=== PATIENT | female | born 1975 | race Caucasian/White ===

== ENCOUNTER 2018-05-02 08:08 | Day surgery (SDC) | payer MEDICAID, SELFPAY ==
--- NOTE | 2018-05-02 07:25 | W.PM.DSUDISC ---
Discharge Plan Disposition Patient Disposition: HOME Condition: Good Discharge Details Reason For Visit: Left Dequervain's Release Attending Provider: Karl Aguilera Primary Care Provider: Denise Diamond Home Meds and New Rx's Prescriptions: New hydrocodone-acetaminophen 5-325 mg tablet 1 tab PO Q4H PRN (Reason: pain) Qty: 8 RF: 0 ibuprofen 600 mg tablet 600 mg PO TID PRNQty: 90 RF: 3 Continue lisinopril 10 MG tablet 10 mg PO DAILY RF: 0 fluoxetine [Prozac] 10 MG capsule 10 mg PO DAILY RF: 0 varenicline [Chantix Continuing Month Box] 1 MG tablet 1 mg PO BID RF: 0 metformin [Glucophage] 1,000 MG tablet 1,000 mg PO BID RF: 0 acetaminophen [Acetaminophen Extra Strength] 500 MG tablet 1,000 mg PO TID Qty: 90 RF: 0 Discontinued ibuprofen 200 MG tablet 600 mg PO TID Qty: 90 RF: 0 Discharge Instructions Additional Instructions: Activity: You should keep the hand elevated as much as possible for the first few days. You may use the other fingers as tolerated but avoid trying to do too much too soon. You may perform light activities with the splint in place. Dressing/Cast: Your splint should stay in place at all times. Do NOT get it wet. You may loosen the ELIZABETH wrap if you feel it is too tight and then rewrap more loosely. Medications: - You should take Tylenol and Ibuprofen for baseline pain control. - You have Hydrocodone for breakthrough pain. - You may apply ice over the thumb. Follow-up: 7-10 days Equipment/Supplies: Splint Activity:: Elevate Remove Dressings/Wound Care:: Do Not Remove Shower/Bathe:: Cover Diet:: As Tolerated Discharge Orders Discharge Orders: Discharge Order (Routine); Ordered 05/02/18 Ordered By: Karl Aguilera DS: Diagnosis Discharge Diagnosis (1) De Quervain's tenosynovitis, left: Status: Acute
[2018-05-02 08:36] VITALS: BP 109/78; PULSE 84; RESP 18; TEMP 36.8; O2SAT 100
[2018-05-02] MEDS: Lactated Ringers 1,000 ML 80 ML IV (09:17)
--- NOTE | 2018-05-02 10:43 | W.PM.OP ---
Date of service: 05/02/18 Time of Service: 10:44 Operative Note DATE OF PROCEDURE: 05/02/18 PRE-OP DIAGNOSIS: Left Dequervain's Tenosynovitis POST-OP DIAGNOSIS: same PROCEDURE: Left First Extensor Compartment Release SURGEON: Karl Aguilera ACCOUNT MAINTENANCE REPRESENTATIVE: Darlin Gutierrez ANESTHESIA: MAC ESTIMATED BLOOD LOSS: 0 PATHOLOGY: none sent TOURNIQUET TIME: 9 COMPLICATIONS: None Patient was transported to: same day Patient's condition: stable Indications: Stephanie is a 43-year-old female who has had symptoms of Dequervain's tenosynovitis. Nonoperative treatment options had been trialed. Given their failure, I offered operative intervention. I reviewed the technical details of a first extensor compartment release. I reviewed the risk of the procedure to include bleeding, infection, pain, stiffness, tendon instability, damage to the superficial radial nerve, and complete release. Despite these risks, the patient elected to proceed. Findings: There was a tightened first excessive compartment. No subcompartments were seen encasing the EPB tendon. There were 2 main slips of APL tendon. Procedure Description: Stephanie was greeted in the preoperative holding area. Name and surgical site were confirmed. The history and physical was completed. The consent was reviewed the patient and signed. Stephanie was taken back to the operating room. The patient was placed and monitored anesthesia care. The left was then prepped with ChloraPrep and draped in a standard fashion after a nonsterile tourniquet was placed high up onto the arm. Prophylactic antibiotics in the form of cefazolin were administered. A timeout was performed for safe surgery. The surgical site was drawn on the skin. The planned surgical field was anesthetized with 0.25% bupivacaine with epinephrine. The limb was exsanguinated and the tourniquet was inflated where it stayed for 9 minutes. A 2 cm incision was made longitudinally over the radial styloid. The skin was incised only. The deep tissue subtenons fat was dissected with a tenotomy scissors trying to protect bridge of the superficial radial nerve. Any branches that were identified were retracted out of the way. The first compartment extensor tendons were then identified. The distal aspect of the first compartment was noted and were released. This release was performed more on the dorsal side to prevent tendon subluxation. The entirety of the first extensor compartment was then released. The slips of the abductor pollicis longus tendon were inspected. They removed to confirm the appropriate motion of the thumb. The extensor pollicis brevis tendon was then identified. No subcompartments were identified. It was fully released. Traction on the tendon was also used to confirm appropriate extension of the thumb confirming the release of the appropriate tendon. The dorsal radial surface of the radius was once again inspected to make sure there is no other sub-compartments or other restrictions to tendon motion. The wound was then thoroughly irrigated. The deep tissue was closed with a 3-0 Vicryl. The skin was closed with a running subjective 4-0 Monocryl. Skin glue was applied. The tourniquet is released without significant bleeding. The hand was dressed with 4 x 4's, web roll, thumb spica splint. I did occasional counts are correct. Patient was transferred back to same day surgery area in stable condition.
[2018-05-02 11:00] VITALS: BP 92/59; PULSE 67; RESP 16; TEMP 37; O2SAT 99
== END 2018-05-02 12:05 | disposition home or self-care (01) ==
LOC: SUR 08:09
PROVIDERS: PCP Family Medicine; Visit Provider Student in an Organized Health Care Education/Training Program
PROC: (CPT 25000; principal; 2018-05-02 09:30)
DX: M65.4 Radial styloid tenosynovitis [de Quervain] (principal)
CPT/HCPCS: 25000; J0690; J1100; J1885; J2250; J2405; J3010

== ENCOUNTER 2018-05-20 09:36 | Outpatient (CLI) | payer MEDICAID, SELFPAY ==
[2018-05-20 10:54] LABS: HCT 40.5 % (36.0-46.0); HGB 13.5 g/dL (12.0-15.5); Mean Corp. HGB Concentration 33.3 g/dL (32.0-36.0); Mean Corpuscular Hemoglobin 28.7 pg (27.0-33.0); Mean Platelet Volume 10.8 fL (8.0-11.0); Platelet Count 261 x1000/uL (130-400); RBC 4.71 m/cumm (4.00-5.20); RBC Distribution Width 13.3 % (11.7-14.6); White Blood Cell Count 6.49 k/cumm (4.4-10.8)
[2018-05-20 11:41] LABS: ALT 23 U/L (12-78); AST 13 U/L (15-37); Albumin 3.6 g/dL (3.4-5.0); Alkaline Phosphatase 53 U/L (46-116); Anion Gap 7.5 mmol/L (3-11); BUN 15 mg/dL (7-18); Bilirubin, Total 0.5 mg/dL (0.2-1.0); CO2 29.5 mmol/L (21.0-32.0); CREATININE 0.65 mg/dL (0.55-1.02); Calcium 8.9 mg/dL (8.5-10.1); Chloride 103 mmol/L (98-107); Cholesterol 210 mg/dL (50-200); Glucose 139 mg/dL (70-100); HDL Cholesterol 40 mg/dL (40-60); LDL CHOLESTEROL 152 mg/dL (<100); Potassium 4.5 mmol/L (3.5-5.1); Sodium 140 mmol/L (136-145); Total Protein 6.6 g/dL (6.4-8.2); Triglyceride 90 mg/dL (30-150)
[2018-05-22 06:18] LABS: Hemoglobin A1C 6.8 % (4.5-6.2)
== END 2018-05-20 09:56 ==
PROVIDERS: PCP Family Medicine; Visit Provider Family Medicine
DX: Z13.1 Encounter for screening for diabetes mellitus (principal); Z13.220 Encounter for screening for lipoid disorders; Z13.228 Encounter for screening for other metabolic disorders; Z13.0 Encounter for screening for diseases of the blood and blood-forming organs and certain disorders involving the immune mechanism; Z00.00 Encounter for general adult medical examination without abnormal findings
CPT/HCPCS: 36415; 80053; 80061; 83721; 85027; 83036

== ENCOUNTER 2018-09-18 14:01 | Outpatient (CLI) | payer MEDICAID, SELFPAY ==
--- NOTE | 2018-09-18 13:57 | DI.RAD_ITS ---
SYMPTOM/DIAGNOSIS: PAIN RIGHT KNEE: Three views were obtained. There is prominent hypertrophic spurring of the patella, both inferior and superior poles. The findings are unchanged from films of 08/09/16. Note is also made of a lateral patellar spur. There is slight narrowing of the lateral patellofemoral cartilaginous joint space. CONCLUSION: DJD predominantly involving the patellofemoral joint.
== END 2018-09-18 14:21 ==
PROVIDERS: PCP Family Medicine; Visit Provider Physician Assistant Surgical
DX: M25.561 Pain in right knee (principal); M17.11 Unilateral primary osteoarthritis, right knee
CPT/HCPCS: 73562

== ENCOUNTER 2019-05-15 00:57 | Outpatient (CLI) | payer MEDICAID, SELFPAY ==
--- NOTE | 2019-05-15 11:32 | DI.MRI_ITS ---
EXAM: MR LOWER JOINT RT WO CLINICAL HISTORY: KNEE PAIN M25.569. TECHNIQUE: Multiplanar multisequence MRI was performed. COMPARISON: XR knee RT 3V AP,lat,ishan from 09/18/2018 FINDINGS: There is a small joint effusion. There are degenerative changes at the lateral patellofemoral joint with thinning of the cartilage extending down to involving underlying bone. There is a prominent lat eral spur. There is a focal defect of the cartilage overlying the lateral femoral condyle extending down to bone. The cruciate and collateral ligaments and extensor mechanism appear intact. There are mild degenerat vicenta changes of the medial meniscus. 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 Focal defect of the cartilage of the lat eral femoral condyle.
== END 2019-05-15 01:17 ==
PROVIDERS: PCP Family Medicine; Visit Provider Student in an Organized Health Care Education/Training Program
DX: M25.561 Pain in right knee (principal); M22.41 Chondromalacia patellae, right knee; M94.8X6 Other specified disorders of cartilage, lower leg; M17.11 Unilateral primary osteoarthritis, right knee
CPT/HCPCS: 73721

== ENCOUNTER 2019-05-15 10:30 | Outpatient (REF) | payer MEDICAID, SELFPAY ==
[2019-05-15 18:43] LABS: ALT 24 U/L (14-59); AST 13 U/L (15-37); Albumin 3.4 g/dL (3.4-5.0); Alkaline Phosphatase 51 U/L (46-116); Anion Gap 11.4 mmol/L (3-11); BUN 11 mg/dL (7-18); Bilirubin, Total 0.5 mg/dL (0.2-1.0); CO2 25.6 mmol/L (21.0-32.0); CREATININE 0.65 mg/dL (0.55-1.02); Calcium 8.9 mg/dL (8.5-10.1); Calculated LDL 123 mg/dL; Chloride 103 mmol/L (98-107); Cholesterol 184 mg/dL (<200); Glucose 173 mg/dL (74-106); HDL Cholesterol 41 mg/dL (40-60); Potassium 3.8 mmol/L (3.5-5.1); Sodium 140 mmol/L (136-145); Total Protein 6.4 g/dL (6.4-8.2); Triglyceride 101 mg/dL (<150)
== END 2019-05-15 10:50 ==
LOC: NCHCN 10:30
PROVIDERS: PCP Family Medicine; Visit Provider Nurse Practitioner
DX: E78.5 Hyperlipidemia, unspecified (principal); E11.9 Type 2 diabetes mellitus without complications; I10 Essential (primary) hypertension
CPT/HCPCS: 80053; 80061

== ENCOUNTER 2019-07-30 16:16 | Outpatient (REF) | payer MEDICAID, SELFPAY ==
[2019-07-30 16:47] LABS: Source R KNEE
[2019-07-30 16:48] LABS: Clarity CLOUDY; Nucleated Cells 822 /MM3 (0-0)
[2019-07-30 17:35] LABS: Mononuclear Cells 95 % (0-0); Polynuclear Cells 5 % (0-0)
== END 2019-07-30 16:36 ==
LOC: LBN 16:16
PROVIDERS: PCP Family Medicine; Visit Provider Student in an Organized Health Care Education/Training Program
DX: M25.461 Effusion, right knee (principal)
CPT/HCPCS: 87070; 87205; 89051; 89060

== ENCOUNTER 2019-11-26 10:49 | Emergency (ER) | payer MEDICAID, SELFPAY ==
[2019-11-26 10:55] VITALS: BP 114/83; PULSE 87; RESP 16; TEMP 37; O2SAT 97
[2019-11-26] MEDS: Ibuprofen 600 MG TAB PO (11:20)
--- NOTE | 2019-11-26 11:22 | ED.GENADUL_ITS ---
Discharge Plan Disposition Patient Disposition: HOME Condition: Stable Discharge Details Chief Complaint: Orthopedic Clinical Impression: Contusion of knee, right Primary Care Provider: Denise Diamond ED Provider: Sarkis Jim Home Meds and New Rx's Prescriptions: Continued lisinopril 10 MG tablet 10 mg PO DAILY RF: 0 metformin [Glucophage] 1,000 MG tablet 1,000 mg PO BID RF: 0 ibuprofen 600 mg tablet 600 mg PO TID PRNQty: 90 RF: 3 acetaminophen [Acetaminophen Extra Strength] 500 MG tablet 1,000 mg PO TID Qty: 90 RF: 0 Discharge Instructions Instructions: Contusion in Adults (ED) Additional Instructions: if pain continues in a week follow up with your primary care provider return to the emergency department for severe worsening pain or swelling of the leg Medical Decision Making 44 yo female tripped and landed from standing on her right knee anteriorly, no loc. HAs mild anterior swelling, full rom with some pain, normal distal senastion and pulses. Suspsect contusion but will xray to eval for fx. No findings to suggest dislocation with popliteal injury xray negative on my read, will place in hinged knee brace and have her f/u with ortho in one week if pain continues Differential Diagnosis Differential Diagnosis: sprain, contusion, fracture Imaging Data Radiologic Study: Attestation: I personally reviewed and interpreted this imaging study as follows: Imaging: X-Ray My impression: no acute findings HPI General Mode of arrival: ambulatory . Date/Time Provider Initiated Documentation: 11/26/19 11:07 . Limitations to Documentation: no limitations . Information obtained by: patient . History of Present Illness 44 year old F presents to the emergency department with the chief complaint of right knee pain, described as moderate, Quality is described as aching, Patient started experiencing this day(s) (1) and it has been constant. No relieving factors improve symptom(s), No exacerbating factors reported . Patient did receive the following treatments prior to arrival, none Related Data Home Medications Medication Instructions Recorded Confirmed lisinopril 10 mg PO DAILY tab-cap 08/09/16 07/30/19 metformin [Glucophage] 1,000 mg PO BID 12/15/16 07/30/19 acetaminophen [Acetaminophen Extra 1,000 mg PO TID #90 tab 05/02/18 07/30/19 Strength] ibuprofen 600 mg PO TID PRN #90 tab 05/02/18 07/30/19 Previous Rx's Medication Instructions Recorded acetaminophen [Acetaminophen Extra 1,000 mg PO TID #90 tab 05/02/18 Strength] ibuprofen 600 mg PO TID PRN #90 tab 05/02/18 Allergies Allergy/AdvReac Type Severity Reaction Status Date / Time No Known Allergies Allergy Unverified 07/30/19 14:48 General Stated Complaint: Orthopedic SPENCER: 4 Review of Systems All systems reviewed & are unremarkable except as noted in HPI and below Constitutional Constitutional: Denies chills, Denies fever(s) and Denies weakness Cardiovascular Cardiovascular: Denies chest pain and Denies dyspnea Respiratory Respiratory: Denies cough and Denies dyspnea Gastrointestinal Gastrointestinal: Denies abdominal pain, Denies nausea and Denies vomiting Neurologic Neurologic: Denies weakness Psychiatric Psychiatric: Denies depression [facility] Medical History (Updated 11/26/19 @ 11:44 by Sarkis Jim MD) Diabetes mellitus (Chronic) Hypertension (Chronic) Social History Smoking/Tobacco Use Status: Current every day Drug use: Never Current gender identity: female Do you feel safe at home: Yes Do you feel safe in your relationship?: Yes Exam Const General: no acute distress Orientation: alert HENMT Head: normal to inspection Ears: external ears normal General nose exam: external nose normal Mouth: moist mucous membranes Eyes General: appearance normal, both eyes and all related structures Neck Neck: normal visual inspection Resp Effort & Inspection: normal respiratory effort and able to speak in complete sentences Cardio Rate: regular rate Skin General skin exam: no rashes or lesions noted Neuro General: patient alert and patient oriented x3 Extrem General: full ROM and capillary refill normal Psych Mental Status: mental status grossly normal Course Vital Signs Vital signs: Vital Signs Temperature 37 C 11/26/19 10:55 Pulse 87 11/26/19 10:55 Respiratory Rate 16 11/26/19 10:55 Blood Pressure 114/83 11/26/19 10:55 Pulse Oximetry 97 11/26/19 10:55 Temperature 37 C 11/26/19 10:55 Temperature Source Skin 11/26/19 10:55 Pulse 87 11/26/19 10:55 Respiratory Rate 16 11/26/19 10:55 Respiratory Effort Non-Labored 11/26/19 11:20 Blood Pressure 114/83 11/26/19 10:55 Pulse Oximetry 97 11/26/19 10:55 Oxygen Delivery Method Room Air 11/26/19 10:55 Oxygen Flow Rate 0 11/26/19 10:55 Pain Level 9 11/26/19 11:20
--- NOTE | 2019-11-26 11:40 | DI.RAD_ITS ---
EXAM: XR KNEE RT 3V AP,LAT,ANGELA CLINICAL HISTORY: knee pain s/p fall. TECHNIQUE: 2D digital imaging was performed. COMPARISON: CR XR knee RT 3V AP,lat,angela from 09/18/2018 FINDINGS: There is mild periarticular spurring of the posterior patella. The articular surfaces are otherwise well maintained. There are enthesophytes at the superior and inferior patella. The bones are intact and normally mineralized. There is a small joint effusion. IMPRESSION: Mild degenerative changes and a small joint effusion. DATA REPOSITORY: RADIATION DOSE DELIVERED:
--- NOTE | 2019-11-27 10:17 | NUR.NOTE ---
Nursing Note: Patient called requesting a work note for one more day. Dr. Billings did one in the patient chart, and it was faxed to [employer]. Fax [phone]. Patient is aware. Ashley Landis
== END 2019-11-26 11:50 | disposition home or self-care (01) ==
PROVIDERS: Emergency Provider Emergency Medicine; PCP Family Medicine
DX: S80.01XA Contusion of right knee, initial encounter (principal); W18.39XA Other fall on same level, initial encounter; E11.9 Type 2 diabetes mellitus without complications; Z79.84 Long term (current) use of oral hypoglycemic drugs; I10 Essential (primary) hypertension
CPT/HCPCS: 29505; 73562; 99283; L1810

== ENCOUNTER 2019-12-03 10:03 | Outpatient (REF) | payer MEDICAID, SELFPAY ==
--- NOTE | 2019-12-03 09:45 | PAPFT_PTH ---
PATIENT: Stephanie Lim LOC: [facility] U#:[id number] AGE/SX: 44/F ROOM: RE12/03/[address]: Denise Diamond : 1975 BED: DIS: 12/03/2019 SPEC #: [id number] RECD: 12/04/19 12:51 STATUS: NATHAN RERoe #: [id number] CHRISTINE: 12/03/19 09:[address]: Denise Diamond DEPT: [facility] Cytology RECD BY: Juana Carpio Tissues: 1 - CX/ENDOCX FOR PAP SMEARS Procedures: PAP THIN PREP/UVM Screening HPV DNA PROBE Comments: [id number] (CHLAMYDIA/GC)
[2019-12-05 13:25] LABS: Chlamydia Result Negative (Negative); GC Result Negative (Negative)
== END 2019-12-03 10:23 ==
LOC: NCHCN 10:03
PROVIDERS: PCP Family Medicine; Visit Provider Family Medicine
DX: Z11.3 Encounter for screening for infections with a predominantly sexual mode of transmission (principal); Z12.4 Encounter for screening for malignant neoplasm of cervix
CPT/HCPCS: 87491; 87591; 88142; 87624

== ENCOUNTER 2019-12-07 00:46 | Outpatient (CLI) | payer MEDICAID, SELFPAY ==
--- NOTE | 2019-12-07 07:00 | DI.MRI_ITS ---
EXAM: MR LOWER JOINT RT WO CLINICAL HISTORY: right knee effusion, internal derangment, M23.91, M25.461. TECHNIQUE: Multiplanar multisequence MRI was performed. COMPARISON: CR XR knee RT 3V AP,lat,angela from 09/18/2018 MR MR LOWER JOINT RT WO from 05/15/2019 CR XR KNEE RT 3V AP,LAT,ANGELA from 11/26/2019 FINDINGS: BONES: There is no fracture or contusion pattern. In the lateral patellar facet, there is marrow shanda a and subchondral cysts. There is absence of the overlying articular cartilage. There is also a lar ge spur laterally. Nonspecific marrow edema is seen in the proximal tibia. JOINTS: There is a cartilage defect in the lateral femoral condyle. Absence of the overlying cartila ge is seen in the lateral patellar facet. There is a moderate joint effusion. TENDONS: Extensor mechanism: Unremarkable. Medial retinaculum: Unremarkable. Lateral retinaculum: Unremarkable. Popliteus: Unremarkable. MUSCLES: Unremarkable. MENISCI: The medial meniscus is unremarkable. The lateral meniscus is unremarkable. SOFT TISSUES: Unremarkable. LIGAMENTS: Anterior Cruciate: Unremarkable. Posterior Cruciate: Unremarkable. Medial Collateral:Unremarkable. Lateral Collateral: Unremarkable. OTHER: IMPRESSION: 1. Chondromalacia again seen involving the lateral patella facet. 2. Degenerative changes seen at the patellofemoral joint. 3. Small cartilage defect overlying the lateral femoral condyle. 4. Moderate joint effusion. 5. No evidence of a meniscal or ligament tear. DATA REPOSITORY:
== END 2019-12-07 01:06 ==
PROVIDERS: PCP Family Medicine; Visit Provider Physician Assistant
DX: M25.561 Pain in right knee (principal); M25.461 Effusion, right knee; M22.41 Chondromalacia patellae, right knee; M17.11 Unilateral primary osteoarthritis, right knee
CPT/HCPCS: 73721

== ENCOUNTER 2020-02-08 11:10 | Outpatient (CLI) | payer MEDICAID, SELFPAY ==
--- NOTE | 2020-02-08 10:48 | DI.RAD_ITS ---
EXAM: XR STANDING ALIGNMENT CLINICAL HISTORY: preop planning for TKA. TECHNIQUE: 2D digital imaging was performed. COMPARISON: CR XR knee RT 3V AP,lat,angela from 09/18/2018 CR XR KNEE RT 3V AP,LAT,ANGELA from 11/26/2019 FINDINGS: The hips are unremarkable. The knees are well maintained on the AP views. The ankles are unremarkab le. The left lower extremity measures 96.2 cm. The right lower extremity measures 96 cm. IMPRESSION: DATA REPOSITORY: RADIATION DOSE DELIVERED:
== END 2020-02-08 11:30 ==
PROVIDERS: PCP Family Medicine; Referring Provider Family Medicine; Visit Provider Physician Assistant
DX: Z01.818 Encounter for other preprocedural examination (principal)
CPT/HCPCS: 77073

== ENCOUNTER 2020-02-15 02:39 | Outpatient (CLI) | payer MEDICAID, SELFPAY ==
[2020-02-15 10:25] LABS: HCT 40.7 % (36.0-46.0); HGB 13.3 g/dL (11.2-15.7); MCHC 32.7 % (32.0-36.0); MCV 88.9 fL (80-95); Platelet Count 229 10^3/uL (130-400); RBC 4.58 10^6/uL (3.93-5.22); RDW 13.2 % (11.7-14.6); RDW-SD 43.1 fL; WBC 6.92 10^3/uL (4.4-10.8)
[2020-02-15 11:06] LABS: BUN 12 mg/dL (7-18); CREATININE 0.68 mg/dL (0.55-1.02); Chloride 102 mmol/L (98-107); Glucose 151 mg/dL (74-106); Potassium 4.2 mmol/L (3.5-5.1); Sodium 136 mmol/L (136-145)
== END 2020-02-15 02:59 ==
PROVIDERS: PCP Family Medicine; Visit Provider Student in an Organized Health Care Education/Training Program
DX: M25.561 Pain in right knee (principal); M17.11 Unilateral primary osteoarthritis, right knee; I10 Essential (primary) hypertension; Z01.818 Encounter for other preprocedural examination; Z01.12 Encounter for hearing conservation and treatment
CPT/HCPCS: 36415; 80048; 85027

== ENCOUNTER 2020-02-15 02:39 | Outpatient (CLI) | payer MEDICAID, SELFPAY ==
[2020-02-16 18:13] LABS: COVID-19 RT-PCR Result NEGATIVE (Negative)
== END 2020-02-15 02:59 ==
PROVIDERS: PCP Family Medicine; Visit Provider Student in an Organized Health Care Education/Training Program
DX: M17.11 Unilateral primary osteoarthritis, right knee (principal)
CPT/HCPCS: U0003

== ENCOUNTER 2020-02-20 06:04 | Observation (INO) | payer MEDICAID, SELFPAY ==
[2020-02-20] VITALS (10 sets, daily range): BP systolic 101–118; BP diastolic 58–75; PULSE 62–76; RESP 16–22; TEMP 36.2–36.7; O2SAT 94–100
[2020-02-20] MEDS: Celecoxib 200 MG CAP 400 MG PO (06:31)
[2020-02-20] MEDS: Acetaminophen 500 MG TAB 1000 MG PO ×2 (06:31→13:09)
[2020-02-20] MEDS: Lactated Ringers 1,000 ML 80 ML IV (06:31)
[2020-02-20] MEDS: Gabapentin 300 MG CAP PO (06:31)
[2020-02-20] MEDS: ceFAZolin 2 GM/50 ML BAG IVPB (08:15)
[2020-02-20] MEDS: Ketorolac 30 MG/ML VIAL (09:29)
[2020-02-20] MEDS: Normal Saline 20 ML VIAL (09:29)
[2020-02-20] MEDS: Bupivacaine 0.25% Pres-Free 30 ML VIAL (09:29)
--- NOTE | 2020-02-20 10:13 | W.PM.OP ---
Date of service: 02/20/20 Time of Service: 10:13 Operative Note Operative Note DATE OF PROCEDURE: 02/20/20 PRE-OP DIAGNOSIS: Right Knee Osteoarthritis POST-OP DIAGNOSIS: same PROCEDURE: Right Total Knee Replacement with Intraoperative Navigation SURGEON: Karl Aguilera GRASSROOTS ORGANIZER: Darlin Gutierrez ANESTHESIA: regional and spinal ESTIMATED BLOOD LOSS: 150 PATHOLOGY: none sent TOURNIQUET TIME: 0 COMPLICATIONS: None Patient was transported to: PACU Patient's condition: stable Implants: 1. Depuy Attune Cementless Cruciate Retaining Femoral Component, Size 7 2. Depuy Attune Cementless Rotating Platform Tibial Component, Size 5 3. Depuy Attune 7x7mm CR/RP Poly 4. Depuy Attune Patellar Component, Size 38mm Indications: I have seen Stephanie in clinic for symptoms of RIGHT knee arthritis, confirmed with radiographic findings. Stephanie has exhausted nonoperative methods and was having significant limitations in daily function and desired better function and less pain. I discussed the technical details of a knee replacement. I explained the risks of the procedure to include, but not limited to, bleeding, infection, pain, stiffness, fracture, damage to nerves and vessels, damage to muscles and tendons, loosening, need for repeat procedure, blood clot and cardiopulmonary demise. Despite these risks, Stephanie elected to proceed. Findings: There was significant signs of arthritis throughout the knee with complete loss of cartilage from the patella and a large defect over the distal aspect of the medial femur. Procedure Description: Stephanie was greeted in the preoperative holding area where the correct side was identified and marked. The consent was reviewed with the patient and signed. The history and physical was updated. All questions were answered. Preoperative mediacations were administered: Acetaminophen 1000mg, Celebrex 400mg, and Gabapentin 300mg. An adductor canal block was then administered by the anesthesia team in the PACU. Stephanie was taken back to the operating room. A spinal anesthestic was then administered. The patient was placed into the supine position on the operating room table. A nonsterile tourniquet was placed high onto the leg. Posts were placed for positioning during the procedure. All bony prominences were well padded. Prophylactic antibiotics in the form of Cefazolin were administered. 1g of Tranxemic Acid was given intravenously within 30 minutes of incision. The right leg was then prepped with Chloraprep and draped in a standard fashion with impervious stockinette. A second prep with Chloraprep was performed prior to application of Iodine impregnated skin protection. A timeout to confirm correct identity, side and site, procedure, allergies, anesthesia, and medical concerns was performed. With the knee in some flexion, a midline incision was made overlying the knee. Full thickness skin flaps were raised once the extensor mechanism was encountered. These were raised medially and laterally. Any bleeding was controlled with electrocautery. Once the extensor mechanism was fully exposed, a medial parapatellar arthrotomy was performed in a flexed position. All bleeding from the arthrotomy and the geniculate arteries was coagulated. A medial subperiosteal peel was performed with electrocautery to the midcoronal plane. The fat pad was removed while keeping the patellar tendon protected. The anterior distal femur synovium was removed for later visualization. The ACL and PCL were resected and the anterior horn of the lateral meniscus was transected. The knee was then flexed with the patella everted. There was some hypoplasia of the lateral femoral condyle and any remnant cartilage of the medial femoral condyle was removed for appropriate thickness. There also was a large defect seen on the lateral femoral condyle. A single starting pin was then placed 1cm anterior to the PCL insertion and the notch in the direction of the femoral head. The OrthoAlign device was applied over the pin. It was oriented to be in line with the epicondylar axis and the trochlear groove. It was then pinned into place. The navigation computer was then turned on and calibrated. The distal femur cut was set at 0 degrees varus/valgus and 2.5 degrees flexion. The distal femur cutting guide then was positioned for a 9mm cut. The distal femur was cut with an oscillating saw while protecting the soft tissues. The tibia was then addressed. The OrthoAlign device was placed over the tibial tubercle and medial tibia and secured into position. Once again, OrthoAlign was calibrated and then set for a 0 degree varus/valgus cut and 5 degrees of posterior slope. With this locked into position, the cut thickness stylus was used to assess cut thickness. A balanced cut of 6mm was measured. This was then held in position and pinned into place with 2 additional pins and a cross pin for stability. The medial and lateral collateral ligaments were protected and the cut was performed. With this completed, it was assessed and noted to be of appropriate dimensions. The guide and OrthoAlign was removed. A spacer block was inserted and the knee was brought into extension. The 7mm spacer block provided full extension, without hyperextension and with stability of both the medial and lateral collateral ligaments was assessed. The pins from the femur and the tibia were then removed. The distal femur was then sized. The anterior stylus was placed onto the lateral ridge of the anterior femur. This indicated a size 7 femur. The external rotation of the guide was adjusted to 5 degrees to match the epicondylar axis, perpendicular to [place]?s line. The 4-in-1 cutting guide was the placed. The posterior medial femur cut was evaluated and appeared of good thickness. The spacer block was inserted underneath the cutting guide and stability was confirmed in 90 degrees of flexion. An aury wing was used to confirm appropriate position of the anterior cut to avoid notching. This cutting guide was ensured to be flush on the cut surface and then pinned into place with headed pins. While protecting the soft tissues, quad tendon, and collateral ligaments, the anterior and posterior cuts were performed with a saw. The central two pins were removed and the posterior and anterior chamfers were cut next. The notch-cutting guide was placed. This was pinned to lateralize the femoral component as much as possible while keeping it flush on the cut surface. This was then pinned into position. A reciprocating saw was used to make the notch cut. A rasp smoothed the cut surfaces. The medial and lateral menisci were removed. A trial femoral component was then inserted, impacted down to the cut surfaces, and the lug holes were drilled. A provisional trial tibial component was placed and the knee was brought through range of motion. There was noted to be excellent extension and flexion. There was no significant instability. The patella was tracking without thumbs. A size 7mm polyethylene component provided the best range of motion and stability with less than 2mm gapping with medial and lateral stress and full extension without significant hyperextension. The tibial cut surface was fully exposed. The tibia was then sized as a 5. The tibia had been previously marked during trialing to correspond to the center of the tibial component to help with rotation. The trial was aligned to this aroldo, approximately rotated to the medial 1/3rd of the tibial tubercle. The trial was pinned into place. The tibia was prepared with a reamer and a keel punch and lug holes. The knee was then brought into extension and the patella was measured as 26mm. Using the patellar clamp and cut guide, this was resected to a flat surface with at least 13mm of thickness remaining. The size 38 patella fit the best. This was oriented and then clamped into position. The lugs were drilled. The trial components were removed. The final components were opened on the back table. The periosteal and capsular tissues, especially posteriorly, around the knee were then systematically injected with a periarticular cocktail consisting of 50cc 0.25% Marcaine, 30mg Ketorolac, 20cc of Exparal and 50cc of injectable saline. The knee was thoroughly irrigated with a pulse lavage and dried. Irrisept was also used to irrigate the tissues. On the back table, with the implants opened, the cement was mixed. One batches of high viscosity cement were prepared with vacuum assistance. After the cement was ready a small amount was placed on the cut surface of the patella and the patellar button was clamped into position and held. During this process attention was turned to the gutters of the knee and for all interfaces for any excess cement. While the cement was hardening, the cementless knee components were placed. Starting with the tibial component, the tibia was subluxed anteriorly and the lug holes of the component were lined up. The tibia was then impacted with an impactor and mallet until the tibial component was in contact with the tibia. The final polyethylene component was inserted. Then, the femoral component was inserted. The lug holes were aligned and the component was impacted into position. The knee was irrigated with Irrisept chlorhexadine solution. This was allowed to sit in the knee for 3 minutes. After the cement had finally cured, approximately 15min, the clamp was removed from the patella and the knee was taken through range of motion. The patella was tracking with a no-thumbs technique. The capsule was then reapproximated with a No. 1 Vicryl at multiple locations. The capsule was finally closed with a No. 2 Stratafix, barbed suture. The tourniquet was then released and the arthrotomy appeared watertight without significant bleeding. The second dosing of 1g TXA was started. Deep tissues were then reapproximated with 0 Vicryl and 2-0 Vicryl. The skin was closed with a running 3-0 Monocryl in a subcuticular fashion. This was reinforced with skin glue. A Mepilex silver dressing was applied along with a [id number] ELIZABETH wrap. A CryoCuff was applied. Stephanie was transferred to the hospital bed without difficulty an suffering no apparent complication. Stephanie has a good prognosis. Physical therapy will start today and without restrictions, weight-bearing as tolerated. Aspirin 81mg BID will be used for DVT prophylaxis.
--- NOTE | 2020-02-20 11:32 | IN_ITS ---
Date of service: 02/20/20 Time of Service: 11:32 PT Notes Visit Reasons: RIGHT KNEE DJD Physical Therapy Inpatient Initial Evaluation Date: 02/20/2020 Referring Doctor: Karl Aguilera MD PT Orders: PT CONSULT: Status post Ortho surgery Precautions: Fall. Standard. WBAT on right LE. Patient Profile/Admitting Diagnosis: Stephanie is a 44-year-old female with osteoarthritis of the right knee and is status post total knee arthroplasty on postoperative day 0. PMHX: Medical History (Updated 02/08/20 @ 10:17 by Darlin Gutierrez) Depression (Chronic) Diabetes mellitus (Chronic) Hyperlipidemia (Acute) Hypertension (Chronic) Surgical History De Quervain's tenosynovitis, left (Inactive 03/09/17) Status post Dequerveins release performed on 05/01/2018 Social History/Home Situation: Lives with significant other in a private home with 4 steps with rails on both sides leading onto a porch. With all mobility ADL performance without any assistive ambulatory device nor adaptive equipment. Equipment Owned/DME: None Subjective: Agreeable to Pt consult. Denies headache, chest pain, nausea, and dizziness throughout session. HOpes to go home as soon as she is medically cleared to do so. Objective: General Observation: ELIZABETH wraps to R LE. Cryocuff to R knee. IV in R UE. TEDS on L leg. Mental Status: Alert and oriented x 4 Pain: None reported ROM: Right Upper Extremity: Shoulder Flexion WFL. Shoulder abduction WFL. Elbow flexion WFL. Wrist flexion WFL. Opening and closing of hand WFL. Left Upper Extremity: Shoulder Flexion WFL. Shoulder abduction WFL. Elbow flexion WFL. Wrist flexion WFL. Opening and closing of hand WFL. Right Lower Extremity: Hip flexion WFL. Hip abduction WFL. Knee flexion allows 10 to 100 degrees. Knee extension -10 degrees. Ankle dorsiflexion WFL. Ankle plantarflexion WFL. Left Lower Extremity: Hip flexion WFL. Hip abduction WFL. Knee flexion WFL. Ankle dorsiflexion WFL. Ankle plantarflexion WFL. Strength: Right Upper Extremity: Shoulder flexors 5/5. Shoulder abductors 5/5. Elbow flexors 5/5. Elbow extensors 5/5. Control Operator Flow Coat strong. Left Upper Extremity: Shoulder flexors 5/5. Shoulder abductors 5/5. Elbow flexors 5/5. Elbow extensors 5/5. Control Operator Flow Coat strong. Right Lower Extremity: Hip flexors 5/5. Hip abductors 5/5. Knee flexors 3-/5. Knee extensors 3-/5. Ankle dorsiflexors 5/5. Ankle plantarflexors 5/5. Left Lower Extremity:Hip flexors 5/5. Hip abductors 5/5. Knee flexors 5/5. Knee extensors 5/5. Ankle dorsiflexors 5/5. Ankle plantarflexors 5/5. Sensation: Intact as to pain and pressure on bilateral lower extremities. Bed Mobility/Transfers: Supine to sit SBA with HOB flat Sit to supine contact guard assist Sit to stand contact guard assist with minimal cues needed for hand placement Stand to sit contact guard assist with minimal cues needed for hand placement Bed to chair contact guard assist with minimal cues needed for hand placement/walker management Chair to bed contact guard assist with minimal cues needed for hand placem ent/walker management Gait: 150 feet with FWW with CGA and wheelchair follow of PT and IV pole management of nurse Rogelio. Partial step through gait pattern. Decreased luma. Cues given to increase R knee flexion. Balance: Static Sitting: Normal Dynamic Sitting: Normal Static Standing: Fair Dynamic Standing: Fair Special Tests: Mobility Limitations Standardized Measure [facility] AM-PAC 6 clicks Basic Mobility Inpatient Short Form: Raw Score: 18 CMS Score: 47% deficit Informed Consent/Education: Patient instructed in purpose of PT consult and plan of care. Room exercises consisting of gluteal setting, quadriceps setting, and ankle pumping, were initiated with patient session as well. Assessment: Stephanie functional mobility decline requiring the use of a front wheeled walker for all mobility ADL performance, difficulty with walking, unsteadiness of gait, and decreased activity tolerance due to status. She will have support of her significant other at home. Stephanie is a 44-year-old female with osteoarthritis of the right knee and is status post total knee arthroplasty on postoperative day 0. Patient presents with clinical signs and symptoms consistent with current/admitting diagnoses that have resulted to mobility limitations, gait instability, generalized weakness, and impairment of motor control as demonstrated by the following impairment level findings: 1. Decreased strength to right knee major muscle groups 2. Impaired standing balance 3. Impaired activity tolerance 4. Limitation of joint range of motion in right knee Impairments are contributing to the following functional limitations: 1. Inability to safely ambulate without assistive device 2. Increase completion time for mobility ADL performance 3. Increased fall risk 4. Inability to negotiate steps alone safely Patient is assessed as a 162 moderate complexity based on the following: History: 44-year-old female with impairment level findings, functional limitations, and past medical history as indicated above Examination: Demonstrable impairment in strength, balance, and mobility level with underlying impairments and functional limitations as documented above Presentation:Evolving Decision Makin moderate complexity Goals: Goals X 1 more treatment session 1. Supine-Sit supervision 2. Sit-Supine supervision 3. Sit-Stand supervision 4. Stand-Sit supervision 5. Bed-Chair supervision 6. Chair-Bed supervision 7. Gait gait on level surface with use of least restrictive device for at least 300 feet without report of pain nor dyspnea 8. SBA stair negotiation while holding onto bilateral rails for at least 5 steps without report of pain nor dyspnea 9. Independent with home exercise program 10. Good static and dynamic standing balance/tolerance Plan of Care/Treatment Plan: 1 more treatment session this afternoon by TECHNOLOGY ENGINEER prior to discharge Plan of care has been reviewed with the TECHNOLOGY ENGINEER providing the service under Physical Therapy direction. Initiate Physical Therapy intervention for strengthening, bed mobility, transfers, gait, stairs, balance training, use of assistive device. DISCHARGE RECOMMENDATIONS: Home when medically cleared. Outpatient PT services return to premorbid independent level and promote return to vocational activities. Needs front wheeled walker to maximize independence at home. TREATMENT CODE/TIME: 53227 x 31 minutes beginning at 11:32 AM. Thank you for the opportunity to participate in the care of this patient. Yeimi Babcock PT, DPT, CLT [facility] [place], [place]
--- NOTE | 2020-02-20 13:23 | DSE_ITS ---
Date of service: 02/20/20 Time of Service: 13:24 DS: Diagnosis Discharge Diagnosis (1) Localized osteoarthritis of right knee: Status: Chronic Discharge Plan Disposition Patient Disposition: HOME Condition: Good Discharge Details Reason For Visit: RIGHT KNEE DJD Admit Date/Time: 02/20/20 06:04 Admit Provider: Karl Aguilera Attending Provider: Karl Aguilera Primary Care Provider: Denise Diamond [facility] Hospital Course: Patient was admitted to the medical/surgical floor following the procedure. The surgery was tolerated well without any notable medical, surgical, or anesthetic complications. Mobilization began postoperatively. She was voiding spontaneously. Vitals were stable. Physical therapy worked with the patient and was cleared for discharge home. No acute medical issues. Pain was controlled on oral regimen. Home Meds and New Rx's Prescriptions: New acetaminophen 500 mg tablet 1,000 mg PO Q8H PRN (Reason: pain) Qty: 90 RF: 3 aspirin 81 mg tablet,delayed release (DR/EC) 81 mg PO BID Qty: 60 RF: 0 docusate sodium [Colace] 100 mg capsule 100 mg PO BID PRNQty: 10 RF: 0 gabapentin 300 mg capsule 300 mg PO QHS Qty: 7 RF: 0 oxycodone 5 mg tablet 5 mg PO Q4H Qty: 12 RF: 0 ibuprofen 600 mg tablet 600 mg PO TID PRNQty: 90 RF: 3 pantoprazole 40 mg tablet,delayed release (DR/EC) 40 mg PO DAILY Qty: 30 RF: 0 Continued rosuvastatin 20 mg capsule, sprinkle 20 mg PO DAILY RF: 0 citalopram [Celexa] 20 mg tablet 20 mg PO HS RF: 0 lisinopril 10 MG tablet 10 mg PO DAILY RF: 0 metformin [Glucophage] 1,000 MG tablet 1,000 mg PO BID RF: 0 Discontinued ibuprofen 600 mg tablet 600 mg PO TID PRNQty: 90 RF: 3 acetaminophen [Acetaminophen Extra Strength] 500 MG tablet 1,000 mg PO TID Qty: 90 RF: 0 Discharge Instructions Additional Instructions: Dr. Aguilera?s Total Knee Discharge Instructions Activity: The most important activity is to walk. You should try to take short walks a few times a day. It is important that when resting you work on keeping the knee straight. Avoid putting a pillow behind the knee as this will encourage flexion. Work on range of motion exercises as provided by Physical Therapy and the preoperative booklet. - Start outpatient physical therapy within 2 weeks. - You should wear the JAKUB hose on both legs for 2 weeks. Dressing: Keep the surgical dressing (Mepilex) in place for at least one week. If you went home on the surgical day, you should remove the ELIZABETH wrap on the second day and then apply the JAKUB hose. The dressing may get wet after 3 days but avoid soaking the dressing. If it gets wet, just lightly pat dry. Most patient prefer to cover with ClingWrap or Saran Wrap to keep the dressing dry. After the first week, the dressing may be removed and replaced with light gauze and tape or nothing. Medications: - You should take Tylenol and anti-inflammatory Ibuprofen as your primary pain control medications - You have been prescribed a stronger pain medication Oxycodone for breakthrough pain, take as needed as prescribed. - You have been prescribed Gabapentin for nerve pain and nighttime restlessness. You will take this before bedtime for one week. - You have also been prescribed a stomach acid reduction agent Pantoprozole to help reduce stomach acid and reflux. - You will be taking Aspirin 81mg twice a day for DVT prevention unless instructed otherwise. - If you have constipation you should take Colace or Miralax (both [id number]). It takes most people 3-4 days to have a bowel movement. Follow-up: 2 weeks. You should also call physical therapy to work on scheduling outpatient therapy sessions which can begin at 2 weeks. If you have any acute concerns or questions, please do not hesitate to contact the office at [phone]. You may contact Dr. Aguilera with any questions after hours through the hospital at [phone] or on his cell phone at [phone]. Referrals: Karl Aguilera MD [ [facility] STAFF PHYSICIAN] - Activity:: Activity as Tolerated Equipment/Supplies:: Walker Diet:: As Tolerated Discharge Orders Discharge Orders: Discharge Order (Routine); Ordered 02/20/20 Ordered By: Karl Aguilera DS: Summary Status at Discharge Functional status at discharge: uses cane/walker Overall status at discharge: patient is progressing back to baseline Mental Status: mental status grossly normal Speech and Movement: speech and movement normal Mood: congruent mood Affect: normal affect Exam Psych Mental Status: mental status grossly normal Speech and Movement: speech and movement normal Mood: congruent mood Affect: normal affect DS: Data Vitals/I&O Vitals and I&O: Vital Signs Temperature 36.7 C 02/20/20 11:35 Temperature Source Tympanic 02/20/20 11:35 Pulse 62 02/20/20 11:35 Pulse Rhythm Regular 02/20/20 12:01 Respiratory Rate 16 02/20/20 11:35 Respiratory Effort Non-Labored 02/20/20 12:01 Respiratory Depth Normal 02/20/20 12:01 Respiratory Pattern Normal 02/20/20 12:01 Blood Pressure 114/75 02/20/20 11:35 Pulse Oximetry 98 02/20/20 11:35 Respiratory End-tidal CO2 36 02/20/20 10:47 Oxygen Delivery Method Room Air 02/20/20 11:35 Oxygen Flow Rate 0 02/20/20 11:35 Pain Level 3 02/20/20 13:09 Intake & Output 02/19/20 02/20/20 02/20/20 23:59 11:59 23:59 Intake Total 770 / 1070 300 / 1070 Output Total 150 / 150 Balance 620 / 920 300 / 920 Weight 94.5 kg Intake: IV 770 / 770 Oral 0 / 300 300 / 300 Output: Emesis 0 / 0 Estimated Blood Loss 150 / 150 Other: Urine Color Yellow Emesis Description None Voiding Methods Toilet [facility] Medical History Depression Diabetes mellitus Hyperlipidemia Hypertension Surgical History De Quervain's tenosynovitis, left (03/09/17) Status post Dequerveins release performed on 05/01/2018 Social History Smoking/Tobacco Use Status: Current every day Tobacco Type: cigarettes Years smoked: 32 Alcohol Intake: current Alcohol Intake frequency: a few times a month Drug use: Never Current gender identity: female Do you feel safe at home: Yes Do you feel safe in your relationship?: Yes
[2020-02-20] MEDS: ceFAZolin 1 GM/50 ML BAG IVPB (15:04)
--- NOTE | 2020-02-20 15:37 | PT.INTREAT ---
Date of service: 02/20/20 Time of Service: 15:37 PT Notes Visit Reasons: RIGHT KNEE DJD Inpatient Physical Therapy Treatment Note [facility] Date: 02/20/2020 PRECAUTIONS: Fall, WBAT R SUBJECTIVE: Stephanie reports that she is feeling good this afternoon, she is hopeful that she will be discharged home later today. OBJECTIVE: PAIN: No c/o pain BED MOBILITY/TRANSFERS Supine-sit: I with HOB flat Sit-supine: I with HOB flat Sit-stand: S Stand-sit: S Bed-Chair: S Chair-bed: S GAIT Assistive Device: FWW Weight bearing: WBAT R Assist: S Distance: 300' Deviation: Step-through gait pattern following instruction THEREX: Patient completed active SLR x10. STAIRS: Up/down 3x4 and 2x6 using B rails and a step-to pattern, independently. Patient required cueing for sequence prior to attempting stair training. ASSESSMENT: Patient tolerated session well, without complaint. Patient was able to demonstrates independence with bed mobility and stair training at this time. PLAN: As per primary PT TREATMENT CODE/TIME: 20 minutes; [id number]
--- NOTE | 2020-02-21 12:49 | PT.INDS ---
Date of service: 02/21/20 Time of Service: 12:49 PT Notes Visit Reasons: RIGHT KNEE DJD Inpatient Physical Therapy Discharge Summary Dates: 02/21/2020 Dates of Service: 02/20/2020 only This is a clinical summary of care provided on the duration of dates listed above. No charge was made in the completion of this documentation. Referring Doctor: Karl Aguilera MD PT Orders: PT CONSULT: Status post Ortho surgery Precautions: Fall. Standard. WBAT on right LE. Patient Profile/Admitting Diagnosis: Stephanie is a 44-year-old female with osteoarthritis of the right knee and is status post total knee arthroplasty on postoperative day 0. PMHX: Medical History (Updated 02/08/20 @ 10:17 by Darlin Gutierrez) Depression (Chronic) Diabetes mellitus (Chronic) Hyperlipidemia (Acute) Hypertension (Chronic) Surgical History De Quervain's tenosynovitis, left (Inactive 03/09/17) Status post Dequerveins release performed on 05/01/2018 Social History/Home Situation: Lives with significant other in a private home with 4 steps with rails on both sides leading onto a porch. With all mobility ADL performance without any assistive ambulatory device nor adaptive equipment. Equipment Owned/DME: None Subjective: NT. See most recent SQL DATABASE DEVELOPER notes. Objective: General Observation: NT. See most recent SQL DATABASE DEVELOPER notes. Mental Status: NT. See most recent SQL DATABASE DEVELOPER notes. Pain: NT. See most recent SQL DATABASE DEVELOPER notes. ROM: Right Upper Extremity: Shoulder Flexion WFL. Shoulder abduction WFL. Elbow flexion WFL. Wrist flexion WFL. Opening and closing of hand WFL. Left Upper Extremity: Shoulder Flexion WFL. Shoulder abduction WFL. Elbow flexion WFL. Wrist flexion WFL. Opening and closing of hand WFL. Right Lower Extremity: Hip flexion WFL. Hip abduction WFL. Knee flexion allows 10 to 100 degrees. Knee extension -10 degrees. Ankle dorsiflexion WFL. Ankle plantarflexion WFL. Left Lower Extremity: Hip flexion WFL. Hip abduction WFL. Knee flexion WFL. Ankle dorsiflexion WFL. Ankle plantarflexion WFL. Strength: Right Upper Extremity: Shoulder flexors 5/5. Shoulder abductors 5/5. Elbow flexors 5/5. Elbow extensors 5/5. Broach Grinder strong. Left Upper Extremity: Shoulder flexors 5/5. Shoulder abductors 5/5. Elbow flexors 5/5. Elbow extensors 5/5. Broach Grinder strong. Right Lower Extremity: Hip flexors 5/5. Hip abductors 5/5. Knee flexors 3-/5. Knee extensors 3-/5. Ankle dorsiflexors 5/5. Ankle plantarflexors 5/5. Left Lower Extremity:Hip flexors 5/5. Hip abductors 5/5. Knee flexors 5/5. Knee extensors 5/5. Ankle dorsiflexors 5/5. Ankle plantarflexors 5/5. Bed Mobility/Transfers: Supine to sit independent Sit to supine independent Sit to stand supervision Stand to sit supervision Bed to chair supervision Chair to bed supervision Gait: 300 feet with FWW with supervision with step-through gait pattern. Balance: Static Sitting: Normal Dynamic Sitting: Normal Static Standing: Fair Dynamic Standing: Fair Assessment: Stephanie demchristianorates functional mobility decline requiring the use of a front wheeled walker for all mobility ADL performance, difficulty with walking, unsteadiness of gait, and decreased activity tolerance due to status. She will have support of her significant other at home. Stephanie is a 44-year-old female with osteoarthritis of the right knee and is status post total knee arthroplasty on postoperative day 0. Goals: Goals X 1 more treatment session 1. Supine-Sit supervision MET 2. Sit-Supine supervision MET 3. Sit-Stand supervision MET 4. Stand-Sit supervision MET 5. Bed-Chair supervision MET 6. Chair-Bed supervision MET 7. Gait gait on level surface with use of least restrictive device for at least 300 feet without report of pain nor dyspnea NOT MET 8. SBA stair negotiation while holding onto bilateral rails for at least 5 steps without report of pain nor dyspnea 9. Independent with home exercise program MET 10. Good static and dynamic standing balance/tolerance NOT MET DISCHARGE RECOMMENDATIONS: Home when medically cleared. Outpatient PT services return to premorbid independent level and promote return to vocational activities. Needs front wheeled walker to maximize independence at home. TREATMENT CODE/TIME: NC. Thank you for the opportunity to participate in the care of this patient. Yeimi Babcock PT, DPT, CLT [facility] [place], [place]
== END 2020-02-20 16:03 | disposition home or self-care (01) ==
LOC: PDS 10:31 → MS 10:32
PROVIDERS: Admitting Provider Student in an Organized Health Care Education/Training Program; PCP Family Medicine; Visit Provider Student in an Organized Health Care Education/Training Program
PROC: 0SRC0J9 Replacement of Right Knee Joint with Synthetic Substitute, Cemented, Open Approach (ICD-10-PCS; CPT 27447; principal; 2020-02-20 08:15)
DX: M17.11 Unilateral primary osteoarthritis, right knee (principal); M25.561 Pain in right knee; Z96.651 Presence of right artificial knee joint; G89.18 Other acute postprocedural pain; E11.9 Type 2 diabetes mellitus without complications; I10 Essential (primary) hypertension; F17.210 Nicotine dependence, cigarettes, uncomplicated; Z79.84 Long term (current) use of oral hypoglycemic drugs; Z23 Encounter for immunization
CPT/HCPCS: 27447; 20985; C1776; 76942; 81025; 90686; 97162; 97530; NC; G0378; J0690; J1100; J1885; J2250; J2405

== ENCOUNTER 2020-03-07 06:42 | Outpatient (CLI) | payer MEDICAID, SELFPAY ==
--- NOTE | 2020-03-07 08:26 | DI.RAD_ITS ---
EXAM: XR STANDING ALIGNMENT CLINICAL HISTORY: 1st post op R TKA. TECHNIQUE: 2D digital imaging was performed. COMPARISON: CR XR STANDING ALIGNMENT from 02/08/2020 FINDINGS: A total knee prosthesis has been placed since the previous exam. The left knee joint spaces are well maintained. There is bilateral acetabular spurring. There is some mild of valgus angulation at the left knee. There is overall leg length discrepancy with the left femoral head projecting 17-18 mill imeters superior to the right. Ankle joint spaces are well maintained. The exam was performed with shoes and the right talar dome projects 16 millimeters superior to the left. The overall length of t he right leg to level of the tibial plafond is 94 cm. The left overall leg length is 97.6 cm. DATA REPOSITORY: RADIATION DOSE DELIVERED:
--- NOTE | 2020-03-07 08:26 | DI.RAD_ITS ---
EXAM: XR KNEE RT 1V CLINICAL HISTORY: 1st post op. TECHNIQUE: 2D digital imaging was performed. COMPARISON: CR XR KNEE RT 3V AP,LAT,ANGELA from 11/26/2019 MR MR LOWER JOINT RT WO from 12/07/2019 CR XR STANDING ALIGNMENT from 02/08/2020 CR XR STANDING ALIGNMENT from 03/07/2020 FINDINGS: Patient is status post placement of a right knee prosthesis since the previous exams. The components appear satisfactorily aligned. No abnormal bony lucencies are seen. . DATA REPOSITORY: RADIATION DOSE DELIVERED:
== END 2020-03-07 07:02 ==
PROVIDERS: PCP Family Medicine; Visit Provider Physician Assistant
DX: Z96.651 Presence of right artificial knee joint (principal); M21.752 Unequal limb length (acquired), left femur
CPT/HCPCS: 73560; 77073

== ENCOUNTER 2020-07-25 02:04 | Outpatient (CLI) | payer MEDICAID, SELFPAY ==
[2020-07-26 13:58] LABS: COVID-19 RT-PCR UVMMC Result Negative (Negative)
== END 2020-07-25 02:05 | disposition home or self-care (01) ==
LOC: LBO 02:05
PROVIDERS: PCP Family Medicine; Visit Provider Student in an Organized Health Care Education/Training Program
DX: Z20.822 Contact with and (suspected) exposure to COVID-19 (principal); Z01.818 Encounter for other preprocedural examination
CPT/HCPCS: U0003

== ENCOUNTER 2020-07-30 08:59 | Day surgery (SDC) | payer MEDICAID, SELFPAY ==
[2020-07-30] VITALS (8 sets, daily range): BP systolic 82–122; BP diastolic 43–75; PULSE 55–84; RESP 16–18; TEMP 36–36.4; O2SAT 98–100
--- NOTE | 2020-07-30 07:38 | PDOC.DSDIS_ITS ---
Documented by User: Darlin Gutierrez 07/30/20 07:45 Discharge Plan Disposition Patient Disposition: HOME Condition: Good Discharge Details Reason For Visit: Arthrofibrosis of right TKA Attending Provider: Karl Aguilera Primary Care Provider: Denise Diamond Home Meds and New Rx's Prescriptions: New acetaminophen 500 mg tablet 500 mg PO Q6H PRN (Reason: pain) Qty: 60 RF: 2 ibuprofen 600 mg tablet 600 mg PO TID PRN (Reason: pain) Qty: 60 RF: 2 oxycodone 5 mg tablet 5 mg PO Q6H MDD 15mg PRN (Reason: pain) Qty: 14 RF: 0 Continued citalopram [Celexa] 20 mg tablet 20 mg PO HS RF: 0 Chantix 1 mg tablet 1 mg PO BID RF: 0 lisinopril 10 MG tablet 10 mg PO DAILY RF: 0 metformin [Glucophage] 1,000 MG tablet 1,000 mg PO BID RF: 0 Discontinued acetaminophen 500 mg tablet 1,000 mg PO Q8H PRN (Reason: pain) Qty: 90 RF: 3 ibuprofen 600 mg tablet 600 mg PO TID PRNQty: 90 RF: 3 No Action acetaminophen [Tylenol] 325 mg Tablet 650 mg PO ONCE PRNRF: 0 Discharge Instructions Additional Instructions: Knee Manipulation Discharge Instructions Activity: You should begin moving as soon as possible. You may work on flexion but also equally maintain extension. You may bear weight as tolerated, using crutches only for support/comfort. You should apply ice to help with swelling and elevate when possible (especially in the first few days). Dressings: The knee dressing may come down after 48 hours. You may shower and get the wound wet at that time. You should keep the wounds covered with a bandaid until follow-up. Medications: - Rarely does this require any stronger pain medications. - Recommend to take up to 1000mg of Acetaminophen (Tylenol) and 600mg of Ibuprofen (Advil) every 8 hours as needed. These larger strength tablets were called in but you also may use [id number]. Follow-up: 7-10 days Referrals: Karl Aguilera MD [ [facility] STAFF PHYSICIAN] - Equipment/Supplies: Partial Weight Bearing Crutches Activity:: Elevate Remove Dressings/Wound Care:: 48 hours Shower/Bathe:: 48 hours Diet:: As Tolerated Discharge Orders Discharge Orders: Discharge Order (Routine); Ordered 07/30/20 Ordered By: Darlin Gutierrez DS: Diagnosis Discharge Diagnosis (1) Arthrofibrosis of total knee arthroplasty: Status: Acute Documented by User: TAVON Steven 07/30/20 10:25 Discharge Plan Disposition Patient Disposition: HOME Condition: Good Discharge Details Reason For Visit: Arthrofibrosis of right TKA Attending Provider: Karl Aguilera Primary Care Provider: Denise Diamond Home Meds and New Rx's Prescriptions: New acetaminophen 500 mg tablet 500 mg PO Q6H PRN (Reason: pain) Qty: 60 RF: 2 ibuprofen 600 mg tablet 600 mg PO TID PRN (Reason: pain) Qty: 60 RF: 2 oxycodone 5 mg tablet 5 mg PO Q6H MDD 15mg PRN (Reason: pain) Qty: 14 RF: 0 Continued citalopram [Celexa] 20 mg tablet 20 mg PO HS RF: 0 Chantix 1 mg tablet 1 mg PO BID RF: 0 lisinopril 10 MG tablet 10 mg PO DAILY RF: 0 metformin [Glucophage] 1,000 MG tablet 1,000 mg PO BID RF: 0 Discontinued acetaminophen 500 mg tablet 1,000 mg PO Q8H PRN (Reason: pain) Qty: 90 RF: 3 ibuprofen 600 mg tablet 600 mg PO TID PRNQty: 90 RF: 3 No Action acetaminophen [Tylenol] 325 mg Tablet 650 mg PO ONCE PRNRF: 0 Discharge Instructions Additional Instructions: Knee Manipulation Discharge Instructions Activity: You should begin moving as soon as possible. You may work on flexion but also equally maintain extension. You may bear weight as tolerated, using crutches only for support/comfort. You should apply ice to help with swelling and elevate when possible (especially in the first few days). Dressings: The knee dressing may come down after 48 hours. You may shower and get the wound wet at that time. You should keep the wounds covered with a bandaid until follow-up. Medications: - Rarely does this require any stronger pain medications. - Recommend to take up to 1000mg of Acetaminophen (Tylenol) and 600mg of Ibuprofen (Advil) every 8 hours as needed. These larger strength tablets were called in but you also may use [id number]. Follow-up: 7-10 days Referrals: Karl Aguilera MD [ [facility] STAFF PHYSICIAN] - Equipment/Supplies: Partial Weight Bearing Crutches Activity:: Elevate Remove Dressings/Wound Care:: 48 hours Shower/Bathe:: 48 hours Diet:: As Tolerated Discharge Orders Discharge Orders: Discharge Order (Routine); Ordered 07/30/20 Ordered By: Darlin Gutierrez
[2020-07-30] MEDS: Lactated Ringers 1,000 ML 80 ML IV (09:55)
[2020-07-30] MEDS: ceFAZolin 2 GM/50 ML BAG IVPB (11:25)
[2020-07-30] MEDS: Bupivacaine 0.25% Pres-Free 30 ML VIAL (12:02)
--- NOTE | 2020-07-31 07:08 | ROE_ITS ---
Date of service: 07/30/20 Time of Service: 13:08 Operative Note Operative Note DATE OF PROCEDURE: 07/30/20 PRE-OP DIAGNOSIS: Arthrofibrosis of Knee Replacement - RIGHT POST-OP DIAGNOSIS: same PROCEDURE: Arthroscopic Synovectomy of 3 Compartments with Manipulation - Right Knee SURGEON: Karl Aguilera ANESTHESIA TYPE: Spinal Refer to Anesthesia Record ESTIMATED BLOOD LOSS: 0 PATHOLOGY: none sent COMPLICATIONS: None Patient was transported to: PACU Patient's condition: stable Indications: I have seen Stephanie in clinic for symptoms of arthrofibrosis of the knee following knee replacement surgery. This was confirmed based on MRI and exam findings. Nonoperative measures were exhausted but disability due to lack of motion persisted. I discussed knee arthroscopy with synovectomy with maniuplation with the patient. I reviewed the risks of the procedure to include, but not limited to, bleeding, infection, pain, continued stiffness, re currence, blood clot. Despite these risks, the patient elected to proceed. Findings: Preoperative Range of Motion: Flexion: 100 Extension:15 Postoperative Range of Motion: Flexion:125 Extension:5 Procedure Description: Stephanie was greeted in the preoperative holding area where the correct side was identified and marked. The consent was reviewed with the patient and signed. The history and physical was updated. All questions were answered. She was taken back to the operating room. The patient was placed into the supine position on the operating room table. All bony prominences were well padded. Prophylactic antibiotics in the form of Cefazolin were administered. Preoperative range of motion was assessed as 15 - 100. The right leg was then prepped with Chloraprep and draped in a standard fashion with stockinette and extremity drape. A timeout to confirm correct identity, side and site, procedure, allergies, anesthesia, and medical concerns was performed. The leg was placed into a pneumatic leg berkowitz, [id number]. A standard lateral portal was made at the lateral border of the patella tendon in line with the inferior pole of the patella, soft spot. The skin and deep tissue was incised sharply and the blunt trochar was inserted atraumatically. At this point had visualization of the femoral component. A superolateral portal was then established with spinal needle localization just superior and lateral to the patella. A knife was taken down through the skin and soft tissue to enter the knee joint. Starting in the superior compartment above the femoral component and anterior to the femur I released all scarring between the anterior femoral synovium and the overlying extensor mechanism. This was taken through all of any noticeable scar tissue until the superior patellar pouch was fully released and mobile. This resection was carried out mostly with electrocautery as well as shaver. Once this was released fully from lateral to medial superiorly I then continue working down the lateral gutter. All scar tissue in the lateral gutter was released so there is normal space and movement between the capsular tissues and the edge of the femoral component and femur. This was taken down through the lateral gutter such that I was able to identify the polyethylene to its posterior corner. Once again, all scar tissue in this area was resected so the polyethylene was easily visible and there is no interposed tissue in the back or the polyethylene was identified. I think continue to work anteriorly. To continue the synovectomy from the lateral compartment to the anterior compartment into the medial compartment, I placed a medial portal under spinal needle localization. Once this was in place it became another working portal and I continued the synovectomy through the anterior compartment to the medial compartment. Once again, I freed up the medial gutter so I was able to visualize the polyethylene from the anterior posterior margins. There is no interposed tissue after full synovectomy was performed. Adhesions between the capsule and the femur were released. This was continued up the medial gutter until it met up with the releases performed previously in the superior compartment. Any remnant scar tissue from around the patella was then removed with a shaver and electrocautery. The arthroscope was brought back into the suprapatellar pouch and the leg was in full extension. The knee was thoroughly irrigated with the arthroscopic fluid on high flow and pressure. Inflow was stopped and excess fluid was removed. The leg was removed from the spider leg berkowitz and manipulation was performed. I first push the knee into flexion and was able to obtain 125 degrees. I then worked the knee into extension, slowly applying an anterior to posterior directed pressure with support of the knee and no significant lever arm. This was cycled multiple times until I was able to obtain extension of 5 degrees. The wounds were closed with 4-0 Nylon. 0.25% ropivacaine was injected around the portal sites and into the knee. The wounds were dressed with Xeroform, 4x4 gauze, ABD pad, Kerlix and an ELIZABETH wrap. A cryo-cuff was applied. The patient tolerated the procedure well and was returned to the Same Day Surgery area in a stable condition suffering no known complication..
== END 2020-07-30 15:25 | disposition home or self-care (01) ==
LOC: SUR 08:59
PROVIDERS: PCP Family Medicine; Visit Provider Student in an Organized Health Care Education/Training Program
PROC: (CPT 29870; principal; 2020-07-30 11:30)
PROC: (CPT 27570; 2020-07-30 11:30)
DX: T84.82XA Fibrosis due to internal orthopedic prosthetic devices, implants and grafts, initial encounter (principal); E11.9 Type 2 diabetes mellitus without complications
CPT/HCPCS: 29876; 27570; J0690; J1100; J1885; J2001; J2405

== ENCOUNTER 2021-02-19 12:10 | Outpatient (CLI) | payer MEDICAID, SELFPAY ==
--- NOTE | 2021-02-19 09:45 | DI.RAD_ITS ---
Exam(s) XR KNEE RT 2V AP,LAT EXAM: XR KNEE RT 2V AP,LAT CLINICAL HISTORY: annual f/u R TKA. TECHNIQUE: 2D digital imaging was performed of the right knee. Two views obtained. AP and lateral v iews were obtained. COMPARISON: CR XR KNEE RT 3V AP,LAT,ANGELA from 11/26/2019 CR XR KNEE RT 1V from 03/07/2020 FINDINGS: BONES: No acute fracture is present. No bony destructive lesion is seen. Small enthesophytes are seen at the superior and inferior aspect of the patella. JOINTS: The knee is normally aligned. There is a small joint effusion. There are stable postsurgical changes of a right total knee replacement. No evidence of hardware failure is seen. SOFT TISSUE: Normal. IMPRESSION: Stable right total knee replacement. DATA REPOSITORY: RADIATION DOSE DELIVERED:
== END 2021-02-19 12:11 | disposition home or self-care (01) ==
LOC: DIORS 12:10
PROVIDERS: PCP Family Medicine; Referring Provider Family Medicine; Visit Provider Student in an Organized Health Care Education/Training Program
DX: Z96.651 Presence of right artificial knee joint (principal); Z98.890 Other specified postprocedural states
CPT/HCPCS: 73560

== ENCOUNTER 2021-06-04 02:32 | Outpatient (CLI) | payer MEDICAID, SELFPAY ==
--- NOTE | 2021-06-04 11:19 | DI.MAMMO_ITS ---
Exam(s) MAMMO SCREENING EXAM: MAMMO SCREENING CLINICAL HISTORY: SCREENING, Z12.31. TECHNIQUE: Bilateral full field digital CC and MLO mammographic images were obtained with 3D tomosyn thesis and utilizing computer aided detection (CAD). COMPARISON: Prior mammograms dating back to 2015, the most recent being May 2017. FINDINGS: Left breast on CC 3D imaging there is a laterally located asymmetric density-possible nodule located 6 cm in from the nipple and measuring approximately 6 x 4 millimeters. In the right breast on 3D MLO imaging there is a small benign-appearing nodule which is unchanged fro 2015 and therefore benign. It is probably benign intramammary lymph node. There are no malignant-appearing microcalcification groups in either breast There is no significant architectural distortion nor skin thickening-retraction. IMPRESSION: 1. No radiographic evidence of malignancy in the right breast. 2. Left breast asymmetric density-possible nodule. Spot compression CC view recommended and possible ultrasound. BI-RADS Category 0 - Assessment Incomplete: Need additional imaging evaluation Breast Density - Category B - Scattered areas of fibroglandular density Breast density Category C or D implies that the patient has dense breast tissue. Dense breast tissue can make it harder to find cancer on a mammogram. Dense breast tissue is also associated with an incr eased risk of breast cancer. This information about the result of the mammogram report was provided to the patient to raise their awareness. Use this report when you speak with the patient about their risks for breast cancer, which includes their family history. At that time, you may recommend additional screening tests (Ultrasoun d or MRI) as these tests may add significant information. A negative radiographic report should not delay biopsy if a dominant or clinically suspicious mass is present. Up to ten percent of cancers are not identified on mammography. A negative report may reinforce clinical impression. Adenosis and dense breasts may obscure an underlying neoplasm. False positive reports average 6 to 10%. Patient will receive a letter notifying them of these results.
== END 2021-06-04 02:52 ==
PROVIDERS: PCP Family Medicine; Visit Provider Family Medicine
DX: Z12.31 Encounter for screening mammogram for malignant neoplasm of breast (principal); R92.8 Other abnormal and inconclusive findings on diagnostic imaging of breast
CPT/HCPCS: 77063; 77067

== ENCOUNTER 2021-06-25 01:19 | Outpatient (CLI) | payer MEDICAID, SELFPAY ==
--- NOTE | 2021-06-25 | DI.US_ITS ---
Exam(s) MAMMO SCREEN CALL BACK UNI US BREAST LT COMPLETE EXAM: MAMMO SCREEN CALL BACK UNI -LEFT AND COMPLETE LEFT BREAST ULTRASOUND CLINICAL HISTORY: F/U MAMMO, LAT ASYMMETRIC DENSITY, ? NODULE. TECHNIQUE: Unilateral spot mammographic images obtained with 3D tomosynthesisand utilizing computer aided detection (CAD). . Complete LEFT breast Ultrasound was also performed, including all 4 quadrants, the retroareolar regio n, and the ipsilateral axilla. COMPARISON: Prior mammograms were reviewed. This additional imaging was performed due to findings described on the recent screening mammogram of 06/04/2021. FINDINGS: Additional mammographic views performed todaydo not dissipate the small nodule described on the scree tania mammogram. Ultrasound performed today reveals a solitary finding at 2 o'clock position corresponding to the find ing on the mammogram. This finding has the appearance of a 5 x 2 millimeter microcyst. No other foc al ultrasound findings in all 4 quadrants nor in the immediate retroareolar region. No significant ipsilateral left axillary adenopathy. IMPRESSION: New left breast nodule appears to correspond to a microcyst measuring 5 x 2 millimeters on ultrasound examination. Appropriate follow-up is left breast MAMMOGRAM in 6 months. The patient was informed of these findings and recommendations prior to leaving the department today. BI-RADS Category 3 - 6 month - Probably Benign Finding: Recommend follow-up mammography in 6 months Breast Density - Category B - Scattered areas of fibroglandular density Breast density Category C or D implies that the patient has dense breast tissue. Dense breast tissue can make it harder to find cancer on a mammogram. Dense breast tissue is also associated with an incr eased risk of breast cancer. This information about the result of the mammogram report was provided to the patient to raise their awareness. Use this report when you speak with the patient about their risks for breast cancer, which includes their family history. At that time, you may recommend additional screening tests (Ultrasoun d or MRI) as these tests may add significant information. A negative radiographic report should not delay biopsy if a dominant or clinically suspicious mass is present. Up to ten percent of cancers are not identified on mammography. A negative report may reinforce clinical impression. Adenosis and dense breasts may obscure an underlying neoplasm. False positive reports average 6 to 10%. Patient will receive a letter notifying them of these results.
== END 2021-06-25 01:39 ==
PROVIDERS: PCP Family Medicine; Visit Provider Family Medicine
DX: Z12.31 Encounter for screening mammogram for malignant neoplasm of breast (principal); R92.8 Other abnormal and inconclusive findings on diagnostic imaging of breast; N60.02 Solitary cyst of left breast
CPT/HCPCS: 76642; 77063; 77067

== ENCOUNTER 2021-08-24 17:38 | Outpatient (REF) | payer MEDICAID, SELFPAY ==
[2021-08-24 13:17] LABS: Crystals (BF) No Crystals seen
[2021-08-24 13:41] LABS: Clarity Cloudy; Mononuclear Cells 96 %; Polynuclear Cells 4 %
[2021-08-24 13:42] LABS: Nucleated Cells 894 uL (0)
== END 2021-08-24 17:39 | disposition home or self-care (01) ==
LOC: LBN 17:38
PROVIDERS: PCP Family Medicine; Visit Provider Student in an Organized Health Care Education/Training Program
DX: M25.561 Pain in right knee; Z96.651 Presence of right artificial knee joint; M25.461 Effusion, right knee
CPT/HCPCS: 87070; 87205; 89051; 89060

== ENCOUNTER → 2021-12-24 00:18 | Outpatient (CLI) | payer MEDICAID, SELFPAY ==
--- NOTE | 2021-12-24 | DI.MAMMO_ITS ---
Exam(s) MG MAMMO DIAGNOSTIC UNI EXAM: MG MAMMO DIAGNOSTIC UNI -LEFT CLINICAL HISTORY: DIAGNOSTIC, 6 MO F/U ABNL MAMMO, R92.8. TECHNIQUE: LEFT BREAST CC AND MLO mammographic images were obtained with 3D tomosynthesis technique and utilizing computer aided detection (CAD). COMPARISON: Prior mammograms were reviewed, the most recent being May 2021. Diagnostic mammogram and ultrasound of 06/25/2021 reviewed. FINDINGS: There are no new left breast mammographic findings. The previously described finding is actually les s evident on the present study, further evidence that it is benign. There are no malignant-appearing microcalcification groups in the left breast and no new architectura l distortion or skin thickening-traction. IMPRESSION: No radiographic evidence of malignancy in the left breast. Appropriate follow-up is to keep this patient on her yearly mammogram schedule, this implying that he r next bilateral mammogram would be in May 2022 or June 2022, with earlier imaging if a self detected breast change is noted.. The patient was informed of the findings and follow-up recommendations prior to leaving the [facility] today. BI-RADS Category 2 - Benign Findings Breast Density - Category B - Scattered areas of fibroglandular density Breast density Category C or D implies that the patient has dense breast tissue. Dense breast tissue can make it harder to find cancer on a mammogram. Dense breast tissue is also associated with an incr eased risk of breast cancer. This information about the result of the mammogram report was provided to the patient to raise their awareness. Use this report when you speak with the patient about their risks for breast cancer, which includes their family history. At that time, you may recommend additional screening tests (Ultrasoun d or MRI) as these tests may add significant information. A negative radiographic report should not delay biopsy if a dominant or clinically suspicious mass is present. Up to ten percent of cancers are not identified on mammography. A negative report may reinforce clinical impression. Adenosis and dense breasts may obscure an underlying neoplasm. False positive reports average 6 to 10%. Patient will receive a letter notifying them of these results.
== END ==
PROVIDERS: PCP Family Medicine; Visit Provider Family Medicine
DX: R92.8 Other abnormal and inconclusive findings on diagnostic imaging of breast (principal)
CPT/HCPCS: 77061; 77065; G0279

== ENCOUNTER 2022-02-22 09:16 | Outpatient (CLI) | payer MEDICAID, SELFPAY ==
--- NOTE | 2022-02-22 09:00 | DI.RAD_ITS ---
Exam(s) XR KNEE RT 2V AP,LAT EXAM: XR KNEE RT 2V AP,LAT INDICATION: eval R TKA pain. COMPARISON: CR XR KNEE RT 2V AP,LAT from 02/19/2021 TECHNIQUE: 2D digital imaging was performed. Two views. FINDINGS: There has been no change in the total knee prosthesis or appearance of the surrounding bone. A joint effusion is present. DATA REPOSITORY: RADIATION DOSE DELIVERED:
== END 2022-02-22 09:17 | disposition home or self-care (01) ==
LOC: DIORS 09:16
PROVIDERS: PCP Family Medicine; Referring Provider Family Medicine; Visit Provider Student in an Organized Health Care Education/Training Program
DX: T84.84XA Pain due to internal orthopedic prosthetic devices, implants and grafts, initial encounter (principal); Z96.651 Presence of right artificial knee joint; M25.461 Effusion, right knee
CPT/HCPCS: 73560

== ENCOUNTER → 2022-03-12 00:49 | Outpatient (CLI) | payer MEDICAID, SELFPAY ==
--- NOTE | 2022-03-12 06:45 | DI.NM_ITS ---
Exam(s) NM BONE SCAN 3 PHASE EXAM: NM BONE SCAN 3 PHASE CLINICAL HISTORY: ?LOOSENING, PAINFUL TOTAL KNEE,Z96.651,t84.84XA. TECHNIQUE: Injected Dose: 25 mCi Tc-99m MDP COMPARISON: CR XR KNEE RT 2V AP,LAT from 02/22/2022 CT scan earlier today was also reviewed FINDINGS: Perfusion phase: No gross asymmetry. Blood pool phase: Mild increased activity around the prosthesis. Delayed phase: Increased uptake at the level of both sides of tibial plateau. Delayed images through the remainder of the skeleton reveal no abnormal uptake in the bones of the hi ps and pelvis nor spinal column. Also no abnormal radiopharmaceutical uptake seen in the rib cages a nd shoulder girdles nor in the sternum. There is, however, a increased focal uptake seen on what appears to be the dorsal aspect of the right foot. There are, however, no lateral images of foot for better localization. IMPRESSION: 1. Some increased uptake seen related to the tibial component, possibly element of loosening. 2. Increased uptake in the ipsilateral right foot, appearing somewhat dorsally. However, there are n o lateral images for better localization DATA REPOSITORY:
--- NOTE | 2022-03-12 11:15 | DI.CT_ITS ---
Exam(s) CT LOWER EXTREMITY RT WO EXAM: CT LOWER EXTREMITY RT WO CLINICAL HISTORY: PAINFUL TKA, ?LOOSENING,Z96.651,T84.84XA. TECHNIQUE: Imaging Protocol: Axial computed tomography images with coronal and sagittal reformatted images were created and reviewed. CONTRAST MATERIAL: Intravenous: None COMPARISON: CR XR KNEE RT 2V AP,LAT from 02/22/2022 FINDINGS: There is a right knee prosthesis. There has also been resurfacing of the patella. There is a joint ef fusion in the suprapatellar bursa. There are no loose bodies evident within the suprapatellar bursa. There is no evidence of fracture. There is no obvious loosening of the prosthesis. No osseous lesions and no evidence of osteomyelitis. IMPRESSION: Components of the prosthesis appears satisfactory. No loosening. No fractures. Joint effusion noted in the suprapatellar bursa. RADIATION DOSE DELIVERED: 302.38mGy.cm Total DLP DATA REPOSITORY: All CT scans at this facility are submitted to the National Radiology Data Registry (NRDR) Dose Index Registry (DIR) with the [employer] [place] [employer] (ACR). RADIATION OPTIMIZATION: All CT scans at this facility use at least one of these dose optimization te chniques: automated exposure control; mA and/or kV adjustment per patient size (includes targeted exa ms where dose is matched to clinical indication); or iterative reconstruction.
== END ==
PROVIDERS: PCP Family Medicine; Visit Provider Student in an Organized Health Care Education/Training Program
DX: T84.84XA Pain due to internal orthopedic prosthetic devices, implants and grafts, initial encounter (principal); Z96.651 Presence of right artificial knee joint; M25.462 Effusion, left knee
CPT/HCPCS: 73700; 78315

== ENCOUNTER 2022-04-23 01:12 | Outpatient (CLI) | payer MEDICAID, SELFPAY ==
[2022-04-23 09:43] LABS: HCT 40.7 % (36.0-46.0); HGB 13.6 g/dL (11.2-15.7); MCH 28.8 pg (27.0-33.0); MCHC 33.4 % (32.0-36.0); MCV 86 fL (80-95); MPV 10.6 fL (8.0-11.0); Platelet Count 264 10^3/uL (130-400); RBC 4.72 10^6/uL (3.93-5.22); RDW 12.5 % (11.7-14.6); RDW-SD 39.6 fL; WBC 7.21 10^3/uL (4.4-10.8)
[2022-04-23 10:35] LABS: Anion Gap 7.4 mmol/L (3-11); BUN 14 mg/dL (7-18); CO2 28.6 mmol/L (21.0-32.0); CREATININE 0.9 mg/dL (0.55-1.02); Calcium 9.3 mg/dL (8.5-10.1); Chloride 101 mmol/L (98-107); Estimated GFR 78.37 (mL/min/1.73m2); Glucose 184 mg/dL (74-106); Sodium 137 mmol/L (136-145)
== END 2022-04-23 01:13 | disposition home or self-care (01) ==
LOC: LBO 01:12
PROVIDERS: PCP Family Medicine; Visit Provider Student in an Organized Health Care Education/Training Program
DX: T84.038A Mechanical loosening of other internal prosthetic joint, initial encounter (principal); Z01.818 Encounter for other preprocedural examination; Z96.651 Presence of right artificial knee joint
CPT/HCPCS: 36415; 80048; 85027

== ENCOUNTER 2022-05-05 08:24 | Day surgery (SDC) | payer MEDICAID, SELFPAY ==
[2022-05-05] VITALS (13 sets, daily range): BP systolic 122–151; BP diastolic 60–76; PULSE 53–71; RESP 13–20; TEMP 36.2–36.7; O2SAT 95–100; BMI 32.3
[2022-05-05] MEDS: Gabapentin 300 MG CAP PO (08:59)
[2022-05-05] MEDS: Acetaminophen 500 MG TAB 1000 MG PO (08:59)
[2022-05-05] MEDS: Celecoxib 200 MG CAP 400 MG PO (08:59)
[2022-05-05] MEDS: Lactated Ringers 1,000 ML 80 ML IV (09:13)
--- NOTE | 2022-05-05 09:25 | W.PM.DS.N ---
Date of service: 05/05/22 Time of Service: 14:10 DS: Diagnosis Discharge Diagnosis (1) Aseptic loosening of prosthetic knee: Status: Acute (2) Painful total knee replacement, right: Status: Acute Discharge Plan Disposition Patient Disposition: Home Condition: Good Discharge Details Reason For Visit: Painful right TKA Admit Date/Time: 05/05/22 08:24 Admit Provider: Karl Aguilera Attending Provider: Karl Aguilera Primary Care Provider: Denise Diamond [place] Meds and New Rx's Prescriptions: New acetaminophen 500 mg tablet 1,000 mg PO Q8H PRN Qty: 90 0RF Rx Instructions: Take two tablets up to every 8 hours as needed for pain aspirin 81 mg tablet,delayed release (DR/EC) 81 mg PO BID 30 Days Qty: 60 0RF celecoxib [Celebrex] 200 mg capsule 200 mg PO BID Qty: 30 0RF docusate sodium [Colace] 100 mg capsule 100 mg PO BID Qty: 30 0RF gabapentin 300 mg capsule 300 mg PO QHS Qty: 14 0RF Rx Instructions: Take one tablet at bedtime oxycodone 5 mg tablet 5 mg PO Q4H PRN (Reason: severe post-operative pain) Qty: 18 0RF Rx Instructions: Take one tablet up to every 4 hours as needed for severe pain pantoprazole 40 mg tablet,delayed release (DR/EC) 40 mg PO DAILY Qty: 14 0RF Continued citalopram [Celexa] 20 mg tablet 20 mg PO HS lisinopril 10 MG tablet 10 mg PO DAILY metformin [Glucophage] 1,000 MG tablet 1,000 mg PO BID Discontinued acetaminophen 500 mg tablet 500 mg PO Q6H PRN (Reason: pain) Qty: 60 2RF ibuprofen 600 mg tablet 600 mg PO TID PRN (Reason: pain) Qty: 60 2RF acetaminophen [Tylenol] 325 mg Tablet 650 mg PO ONCE PRN Discharge Instructions Additional Instructions: Total Knee Revision Discharge Instructions Activity: The most important activity is to walk and to work on gentle motion (both flexion and extension). You should try to take short walks a few times a day. It is important that when resting you work on keeping the knee straight. Avoid putting a pillow behind the knee as this will encourage flexion. Work on range of motion exercises as provided by Physical Therapy. - Start outpatient physical therapy within 2 weeks. - You should wear the JAKUB hose on both legs for 2 weeks. You may remove these at night. You may also use any compression sock in place of the JAKUB hose. - Utilize [employer] to review exercises, see videos on exercises and obtain basic information pertaining to your surgery and your recovery. Dressing: Remove the Neftali wrap by 2 days after your surgery and put on the JAKUB stocking given to you from the hospital. Keep the surgical dressing (underneath the NEFTALI wrap) in place for at least one week. After the first week it may be removed and replaced with light gauze and tape or nothing. The wound and dressing may get wet after 3 days but avoid soaking the dressing or otherwise it will need to be changed. Many people prefer covering the dressing with cling wrap (saran wrap) to minimize it from getting soaked. If it gets wet, just pat dry. If it starts to peel off then it will need to be changed. Medications: - You should take Tylenol and anti-inflammatory Celebrex as your primary pain control medications. If the Celebrex is too expensive or not covered, please call the office for another alternative (Advil/Ibuprofen or Naproxen/Aleve) - You have been prescribed a stronger pain medication Oxycodone for breakthrough pain, take as needed as prescribed. - You have also been prescribed a stomach acid reduction agent Pantoprozole to help reduce stomach acid and reflux. - You have been prescribed Gabapentin to take at night for restlessness and nerve pain. - You will be taking Aspirin 81mg twice a day for DVT prevention unless instructed otherwise. - If you have constipation you should take Colace (which has been prescribed) or Miralax (which you may purchase [id number]). It takes most people 3-4 days to have a bowel movement. Follow-up: 2 weeks If you have any acute concerns or questions, please do not hesitate to contact the office at [phone]. You may contact Dr. Aguilera with any questions after hours through the hospital at [phone] or on his cell phone at [phone]. Referrals: Karl Aguilera MD [ [facility] STAFF PHYSICIAN] - Activity:: Activity as Tolerated Equipment/Supplies:: Walker Diet:: As Tolerated Discharge Orders Discharge Orders: Discharge Order (Routine); Ordered 05/05/22 Ordered By: Karl Aguilera DS: Summary Time Spent with Patient providing and/or coordinating discharge services: Less than 30 minutes Status at Discharge Functional status at discharge: uses cane/walker Overall status at discharge: patient is progressing back to baseline Mental Status: mental status grossly normal Speech and Movement: speech and movement normal Mood: congruent mood Affect: normal affect Exam Psych Mental Status: mental status grossly normal Speech and Movement: speech and movement normal Mood: congruent mood Affect: normal affect DS: Data Vitals/I&O Vitals and I&O: Vital Signs Temperature 97.5 F L 05/05/22 08:41 Pulse 60 05/05/22 08:41 Pulse Rhythm Regular 05/05/22 08:41 Respiratory Rate 18 05/05/22 08:41 Respiratory Depth Normal 05/05/22 08:41 Blood Pressure 128/70 05/05/22 08:41 Pulse Oximetry 99 05/05/22 08:41 Oxygen Delivery Method Room Air 05/05/22 08:41 Oxygen Flow Rate 0 05/05/22 08:41 Pain Level 4 05/05/22 08:41 Intake & Output 05/04/22 05/04/22 05/05/22 11:59 23:59 11:59 Weight 218 lb 14.704 oz PFSH All Active Problems Aseptic loosening of prosthetic knee (Acute) Painful total knee replacement, right (Acute) Pain of right heel (Acute) Right Achilles tendinitis (Acute) Pes anserinus bursitis of right knee (Acute) Left lateral epicondylitis (Acute) Left carpal tunnel syndrome (Acute 08/09/16) Left wrist tendinitis (Acute 03/09/17) Status post total right knee replacement (Acute 02/20/20) Depression (Chronic) Hyperlipidemia (Acute) Hypertension (Chronic) Diabetes mellitus (Chronic) Surgical History De Quervain's tenosynovitis, left (03/09/17) Status post Dequerveins release performed on 05/01/2018 Hx of carpal tunnel repair Social History Smoking/Tobacco Use Status: Current every day Tobacco Type: cigarettes Years smoked: 32 Smoking risk assessment performed?: Yes Alcohol Intake: current Alcohol Intake frequency: a few times a month Alcohol type: other Drug use: Never Substance use type: does not use Details: alcohol:t-1. 1400 Current gender identity: female Do you feel safe at home: Yes Do you feel safe in your relationship?: Yes
--- NOTE | 2022-05-05 09:28 | W.ANESPRE ---
General Info Date of Service Date Performed: 05/05/22 Height: 5 ft 9 in Weight: 99.3 kg Body Mass Index (BMI): 32.3 Surgical Procedure: Operation Date: 05/05/22 09:55 Proposed Procedure Side Surgeon p Knee Total Attune Revision- Tibia Only Right Karl Aguilera MD Meds Allergies and Home Medications Allergies Allergy/AdvReac Type Severity Reaction Status Date / Time No Known Allergies Allergy Verified 04/23/22 10:19 Home Medication Medication Instructions Recorded lisinopril 10 mg tablet 10 mg PO DAILY 08/09/16 metformin 1,000 mg tablet 1,000 mg PO BID 12/15/16 (Glucophage) citalopram 20 mg tablet (Celexa) 20 mg PO HS 02/08/20 acetaminophen 500 mg tablet 1,000 mg PO Q8H PRN pain #90 tabs 05/05/22 aspirin 81 mg tablet,delayed 81 mg PO BID 30 days #60 tabs 05/05/22 release celecoxib 200 mg capsule (Celebrex) 200 mg PO BID #30 caps 05/05/22 docusate sodium 100 mg capsule 100 mg PO BID #30 caps 05/05/22 (Colace) gabapentin 300 mg capsule 300 mg PO QHS #14 caps 05/05/22 oxycodone 5 mg tablet 5 mg PO Q4H PRN severe 05/05/22 post-operative pain #18 tabs pantoprazole 40 mg tablet,delayed 40 mg PO DAILY #14 tabs 05/05/22 release Current Visit Medications: Current Medications Generic Name Dose Route Start Last Admin Trade Name Freq PRN Reason Stop Dose Admin Acetaminophen 1,000 mg 05/05/22 06:00 05/05/22 08:59 Acetaminophen 500 Mg Tab PO 05/05/22 16:00 1,000 mg PREOP SUSANA Administration Acetaminophen 1,000 mg 05/05/22 14:00 Acetaminophen 500 Mg Tab PO TID SUSANA Aspirin 81 mg 05/05/22 20:00 Aspirin E.C. 81 Mg Tabec PO BID [facility] Celecoxib 400 mg 05/05/22 06:00 05/05/22 08:59 Celecoxib 200 Mg Cap PO 05/05/22 16:00 400 mg PREOP SUSANA Administration Celecoxib 200 mg 05/05/22 20:00 Celecoxib 200 Mg Cap PO BID [facility] Docusate Sodium 100 mg 11/30/22 07:23 Docusate Sodium 100 Mg Cap PO BID PRN PRN Constipation Gabapentin 300 mg 05/05/22 06:00 05/05/22 08:59 Gabapentin 300 Mg Cap PO 05/05/22 16:00 300 mg PREOP SUSANA Administration Gabapentin 300 mg 05/05/22 22:00 Gabapentin 300 Mg Cap PO HS SUSANA Hydromorphone HCl 0.5 mg 05/05/22 07:23 Hydromorphone 2 Mg/Ml Syr IVP Q2H PRN PRN Tranexamic Acid 1,000 mg/ 60 mls @ 360 mls/hr 05/05/22 06:00 Sodium Chloride IVPB 05/05/22 16:00 PREOP SUSANA Ringer's Solution 1,000 mls @ 80 mls/hr 05/05/22 06:00 05/05/22 09:13 IV 06/03/22 23:59 80 mls/hr INFUSION SUSANA Administration Cefazolin Sodium/Dextrose 2 gm in 50 mls @ 100 mls/hr 05/05/22 06:00 Ancef Duplex IVPB 06/03/22 23:59 PREOP SUSANA Cefazolin Sodium/Dextrose 1 gm in 50 mls @ 100 mls/hr 05/05/22 08:00 Ancef Duplex IVPB 05/06/22 00:29 Q8H SUSANA IV Miscellaneous Supplies 1 each 05/05/22 06:00 Iv Access IV 06/03/22 23:59 DIRECTED SUSANA Oxycodone HCl 0 mg 05/05/22 07:23 Oxycodone 5 Mg Tab PO Q3H PRN PRN Pain Pantoprazole Sodium 40 mg 05/06/22 07:30 Pantoprazole 40 Mg Tabcr PO DAILY@0730 SUSANA Polyethylene Glycol 17 gm 05/05/22 07:23 Polyethylene Glycol 3350 17 Gm Packet PO BID PRN PRN Constipation Sodium Chloride 0 ml 05/05/22 06:00 Normal Saline Flush 10 Ml Syr IV 06/03/22 23:59 PRN PRN Sodium Chloride 0 ml 05/05/22 06:00 Normal Saline 10 Ml Vial IJ 06/03/22 23:59 DIRECTED PRN Sterile Water 0 ml 05/05/22 06:00 Water,Injection,Sterile 10 Ml Vial IJ 06/03/22 23:59 DIRECTED PRN PFSH Active Problems Active Problems: Problem Status Onset Code Aseptic loosening of prosthetic knee T84.038A, Z96.659 Painful total knee replacement, right T84.84XA, Z96.651 Pain of right heel M79.671 Right Achilles tendinitis M76.61 Pes anserinus bursitis of right knee M70.51 Left lateral epicondylitis M77.12 Arthrofibrosis of total knee arthroplasty T84.82XA Left carpal tunnel syndrome 08/09/16 G56.02 Left wrist tendinitis 03/09/17 M77.8 Status post total right knee replacement 02/20/20 Z96.651 Depression F32.9 Hyperlipidemia E78.5 Hypertension I10 Diabetes mellitus E11.9 Surgical History Surgical History De Quervain's tenosynovitis, left (03/09/17) Status post Dequerveins release performed on 05/01/2018 Hx of carpal tunnel repair Tobacco Smoking/Tobacco Use Status: Current every day Tobacco Type: cigarettes Smoking cigarettes per day: 7 Years smoked: 32 Smoking pack-years: 11.20 Alcohol Alcohol Intake: current Alcohol intake frequency: a few times a month Alcohol type: other Substance Use Substance use: Never Substance use type: does not use Details: alcohol:t-1. 1400 Vital Signs and Lab Results Vital Signs Most Recent Vital Signs in EMR: Most Recent Vital Signs Temp Pulse Resp BP Pulse Ox 36.4 C L 60 18 128/70 99 05/05/22 08:41 05/05/22 08:41 05/05/22 08:41 05/05/22 08:41 05/05/22 08:41 Point of Care Results Point of Care Results: POC- Test(urine) Negative 05/05/22 09:22 Finger Stick Blood Glucose 122 05/05/22 09:16 Lab Results Blood Type / Crossmatch: No Data to Display Complete Blood Count: White Blood Count 7.21 10^3/uL (4.4-10.8) 04/23/22 09:38 Red Blood Count 4.72 10^6/uL (3.93-5.22) 04/23/22 09:38 Hemoglobin 13.6 g/dL (11.2-15.7) 04/23/22 09:38 Hematocrit 40.7 % (36.0-46.0) 04/23/22 09:38 Platelet Count 264 10^3/uL (130-400) 04/23/22 09:38 Complete Metabolic Panel: Sodium 137 mmol/L (136-145) 04/23/22 09:38 Potassium 4.0 mmol/L (3.5-5.1) 04/23/22 09:38 Chloride 101 mmol/L (98-107) 04/23/22 09:38 Carbon Dioxide 28.6 mmol/L (21.0-32.0) 04/23/22 09:38 BUN 14 mg/dL (7-18) 04/23/22 09:38 Creatinine 0.9 mg/dL (0.55-1.02) 04/23/22 09:38 Est GFR (CKD-EPI 2020) 78.37 (mL/min/1.73m2) 04/23/22 09:38 Calcium 9.3 mg/dL (8.5-10.1) 04/23/22 09:38 Glucose 184 mg/dL (74-106) H 04/23/22 09:38 Liver Function Panel: No Data to Display Coagulation Panel: No Data to Display Cardiac Panel: No Data to Display Arterial Blood Gas: No Data to Display Venous Blood Gas: No Data to Display Pancreas Panel: No Data to Display Thyroid Panel: No Data to Display Infectious Disease: No Data to Display Blood Cultures: No Data to Display Toxicology Panel: No Data to Display Panel: No Data to Display Anesthesia Assessment and Plan Anesthesia History Personal History: No History of Anesthesia Complications Family History: Family History Unknown Exercise Tolerance Exercise Tolerance: Metabolic Equivalents>4 Pertinent Negatives Pertinent Negatives: No Symptoms of GERD, No Major Cardiovascular Symptoms or Complaints and No Major Pulmonary Symptoms or Complaints Cardiac & Pulmonary Exam Cardiac Exam: Normal S1/S2 Heart Sounds Pulmonary Exam: Clear Bilateral Breath Sounds Implantable Cardiac Device Does patient have a Pacemaker or an ICD?: No Airway Exam Known Difficult Airway: No Mallampati Class: 1 Mouth Opening: Normal (> 3cm) Thyromental Distance: Greater than 3 cm Neck Range of Motion: Full ROM Neck Circumference: Normal Teeth Condition: Generalized Poor Dentition ASA Classification ASA Score: ASA 2 Emergency Case?: No NPO Status NPO Status: NPO Clears >2 hours, Solids >8 hours Status Status: Negative HCG Anesthesia Plan Resuscitation Status: Full Code Anesthesia Technique: Spinal Anesthesia Airway Planned: Natural Airway Pain Management: Surgeon and patient request nerve block Monitors Used: Standard Monitors
[2022-05-05] MEDS: ceFAZolin 2 GM/50 ML BAG IVPB (09:55)
--- NOTE | 2022-05-05 10:26 | W.ANESNERVE ---
Nerve Block Single Injection Procedure Date and Time Date Performed: 05/05/22 Procedure Start: 09:42 Location Where Procedure Performed Procedure Location: Day Surgery Unit Reason Performed: Postoperative Analgesia Requesting Provider: Karl Aguilera Timeout Performed Timeout Performed: Yes Monitoring Used ECG, Blood Pressure, SpO2 and See EMR for corresponding vital signs Sterility Sterility: Hand Hygiene, Surgical Cap, Surgical Mask, Sterile Gloves and Chlorhexidine Sedation Given During Procedure Sedation Given (Indicate Dose Given): No Sedation given Patient Mental Status Patient Mental Status: Awake Nerve Block 1st Nerve Block: Laterality: Right Block Type: Adductor Canal Needle / Catheter Used: 100mm SonoPlex II Local Anesthetic Bolus (Indicate Dose Given): Lidocaine used for local infiltration of skin, Injected in 3-5ml increments after negative blood aspiration and Bupivacaine 0.25% Dose:: 15ml Additives (Indicate Dose Given): None Ultrasound: Sterile probe cover and gel used Ultrasound Image Saved?: Yes Nerve Stimulator: Not Used Paresthesia: None Procedure Tolerated: No Complications and Patient tolerated well Procedure Outcome: Successful Performed By: Eleuterio Musa
--- NOTE | 2022-05-05 13:17 | ROE_ITS ---
Date of service: 05/05/22 Time of Service: 11:50 Operative Note Operative Note DATE OF PROCEDURE: 05/05/22 PRE-OP DIAGNOSIS: Loose Right Tibial Knee Replacement Component POST-OP DIAGNOSIS: same PROCEDURE: Revision of Right Tibial Component SURGEON: Karl Aguilera OFFSET PRINTING PRESSMEN: Darlin Gutierrez ANESTHESIA TYPE: Spinal Refer to Anesthesia Record ESTIMATED BLOOD LOSS: 150 PATHOLOGY: none sent COMPLICATIONS: None Patient was transported to: PACU Patient's condition: stable Implants: 1. Depuy Attune Cemented RP Tibial Component, Size 6 2. Depuy Attune 7x7 RP/CR Poly Indications: I have seen Stephanie in clinic for symptoms of a painful right knee replacement with concerns of a loose tibial component, confirmed with radiographic findings. Stephanie has exhausted nonoperative methods and was having significant limitations in daily function and desired better function and less pain. I discussed the technical details of a knee replacement. I explained the risks of the procedure to include, but not limited to, bleeding, infection, pain, stiffness, fracture, damage to nerves and vessels, damage to muscles and tendons, loosening, need for repeat procedure, blood clot and cardiopulmonary demise. Despite these risks, she elected to proceed. Findings: There was only a small portion of the proximal tibia which had ingrown to the tibial component. There was an area of the anterior chamfer which had no union but otherwise the femur was inspected and showed no signs of loosening. Procedure Description: Stephanie was greeted in the preoperative holding area where the correct side was identified and marked. The consent was reviewed with the patient and signed. The history and physical was updated. All questions were answered. Preoperative mediacations were administered: Acetaminophen 1000mg, Celebrex 400mg, and Gabapentin 300mg. An adductor canal block was then administered by the anesthesia team in the PACU. Stephanie was taken back to the operating room. A spinal anesthestic was then administered. The patient was placed into the supine position on the operating room table. A nonsterile tourniquet was placed high onto the leg but only used for cementing. Posts were placed for positioning during the procedure. All bony prominences were well padded. Prophylactic antibiotics in the form of Cefazolin were administered. 1g of Tranxemic Acid was given intravenously within 30 minutes of incision. The right leg was then prepped with Chloraprep and draped in a standard fashion with impervious stockinette. A second prep with Chloraprep was performed prior to application of Iodine impregnated skin protection. A timeout to confirm correct identity, side and site, procedure, allergies, anesthesia, and medical concerns was performed. With the knee in some flexion, a midline incision was made overlying the knee. Full thickness skin flaps were raised once the extensor mechanism was encountered. These were raised medially and laterally. Any bleeding was controlled with electrocautery. Once the extensor mechanism was fully exposed, a medial parapatellar arthrotomy was performed in a flexed position. All bleeding from the arthrotomy and the geniculate arteries was coagulated. A medial subperiosteal peel was performed with electrocautery to the midcoronal plane. The medial tibial plateau was exposed. The fat pad was removed while keeping the patellar tendon protected. The anterior distal femur synovium was removed for later visualization. An aggressive synovectomy was performed using 2 Allis and 2 Annika clamps medially and laterally. There was dense synovium and attachments and adhesions throughout the knee from her previous surgery which were resected into the normal appearing tissue. The femoral component was then inspected. Interface between the bone and the implant was exposed both medially and laterally. There is a small area on the anterior chamfer and where there was obvious no bone healing. However, there was notable bony attachment to the femoral component everywhere else. The interface fully exposed I then used a bone tamp in multiple locations, medially, laterally, superiorly, to test the stability of the implant. There was no motion. Attention was really turned to that anterior chamfer area laterally but once again there was no motion of the implant. Attention was then turned to the tibia. Scarring and soft tissue was resected from around the periphery of the tibial implant to fully expose the tibial implant surface. The implant was not grossly loose. There seem to be potentially some motion medially and less so laterally. Using a flexible osteotome I then worked on freeing up any attachments from the tibia to the tibial base tray. Immediately it was seen that medially there was no significant adhesions. The flexible osteotome easily penetrated the interface between the implant and the bone. There was some more resistance laterally around the pegs. There is a little bit of fraying of the bone and the implant was easily removed with the bone tamp. There is a small amount of bone around the lateral implant between the keel and the pegs. There is no other signifi cant bone loss. The cut surface of the tibia is not fully exposed with any regularity removed down to the cut surface. The tibial surface was roughened with a curette. Any soft tissue was removed. It appeared that the bone healed adjacent to the implant but not onto her into the implant metal. I use a curette to roughen all of these bony surfaces but without disturbing the architecture of the tibial cut. The tibia was then sized as a 6. A size 6 tibial trial was placed with a size 7 polyethylene. The knee was taken through range of motion and had excellent range of motion with extension and flexion. The center of the tibial implant was then marked. The trial was aligned to this aroldo, approximately rotated to the medial 1/3rd of the tibial tubercle. The trial was pinned into place. The tibia was prepared with a reamer and a keel punch. The trial components were removed. The final components, except for the polyethylene were opened on the back table. The periosteal and capsular tissues, especially posteriorly, around the knee were then systematically injected with a periarticular cocktail consisting of 246mg of Ropivacaine, 0.5mg of Epinephrine, 0.08mg of Clonidine, and 30mg of Ketorolac, diluted to 100cc.. The tourniquet was then inflated to 275mmHg. The knee was thoroughly irrigated with a pulse lavage and dried. On the back table, with the implants opened, the cement was mixed. 2 batches of medium viscosity cement were prepared with vacuum assistance. After the cement was ready, the back side of the tibial component including the keel was covered with cement. Cement was manual pressurized and impregnated into the cut surface of the tibia. The tibial component was then inserted into the cut surface and impacted into position. Excess cement was removed and the component was reimpacted. The trial polyethylene was then inserted and the leg was brought out into full extension for the duration of the cement curing process, approximately 18min. Cement was lastly manually impacted into the cut surface of the patella and the patellar button was clamped into position and held. During this process attention was turned to the gutters of the knee and for all interfaces for any excess cement. While the cement was hardening, the knee was irrigated with Surgiphor chlorhexadine solution. This was allowed to sit in the knee for 3 minutes and then it was thoroughly irrigated with saline. After the cement had finally cured, approximately 18min, the knee was taken through range of motion. A size 7mm polyethylene component provided the best range of motion and stability with less than 2mm gapping with medial and lateral stress and full extension without significant hyperextension. The patella was tracking with a no-thumbs technique. The trial poly was removed and once again the knee was checked for any loose, excess, or errant cement. The poly component was then inserted and impacted into position after cleaning and drying the tibial tray. The capsule was then reapproximated with a No. 1 Vicryl at multiple locations. The capsule was finally closed with a No. 2 Stratafix, barbed suture. The tourniquet was then released and the arthrotomy appeared watertight without significant bleeding. Deep tissues were then reapproximated with 0 Vicryl and 2-0 Vicryl. The skin was closed with a running 3-0 Monocryl in a subcuticular fashion. This was reinforced with skin glue. A Mepilex silver dressing was applied along with a [id number] ELIZABETH wrap. A CryoCuff was applied. Stephanie was transferred to the hospital bed without difficulty an suffering no apparent complication. Stephanie has a good prognosis. Physical therapy will start today and without restrictions, weight-bearing as tolerated. Aspirin 81mg BID will be used for DVT prophylaxis.
--- NOTE | 2022-05-05 13:35 | W.ANESPOSTOP ---
Postoperative Evaluation Date, Time and Location Date Performed: 05/05/22 Time Performed: 13:35 Patient Location: Day Surgery Unit Vital Signs Most Recent Imported Vital Signs: Most Recent Vital Signs Temp Pulse Resp BP Pulse Ox 36.4 C L 66 14 151/72 H 98 05/05/22 13:17 05/05/22 13:17 05/05/22 13:17 05/05/22 13:17 05/05/22 13:17 Pain Score Most Recent Pain Score: Most Recent Pain Score Pain Level 0 05/05/22 13:05 Assessment Mental Status: Awake (Alert & Oriented to Patient Baseline) Airway and Respiratory Function: Patent airway with normal (patient baseline) respiratory exam Cardiovascular Function: Hemodynamically Stable Hydration Status: Adequately Hydrated Nausea & Vomiting: No Nausea or Vomiting Pain: Pt. Denies Any Pain Peripheral Nerve Block: Regional nerve block not resolved at time of post operative discharge
--- NOTE | 2022-05-05 15:28 | PT.INIE ---
Date of service: 05/05/22 Time of Service: 15:28 PT Notes Visit Reasons: Painful right TKA Physical Therapy Inpatient Initial Evaluation Date: 05/05/2022 Referring Doctor: TAVON Parr PT Orders: PT CONSULT: S/P Ortho surgery Precautions: Fall. Standard.? WBAT on right LE. 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 She is osteoarthritis of the right knee status post total knee arthroplasty on 02/20/2020. She is S/P revision of loose tibial component of R TKA on postoperative day 0. PMHX: All Active Problems? Aseptic loosening of prosthetic knee (Acute) Painful total knee replacement, right (Acute) Pain of right heel (Acute) Right Achilles tendinitis (Acute) Pes anserinus bursitis of right knee (Acute) Left lateral epicondylitis (Acute) Left carpal tunnel syndrome (Acute 08/09/16) Left wrist tendinitis (Acute 03/09/17) Status post total right knee replacement (Acute 02/20/20) Depression (Chronic) Hyperlipidemia (Acute) Hypertension (Chronic) Diabetes mellitus (Chronic) Surgical History?(Updated 04/25/22 @ 12:01 by Karl Aguilera MD) De Quervain's tenosynovitis, left (03/09/17) Status post Dequerveins release performed on 05/01/2018 Hx of carpal tunnel repair Social History/Home Situation: Lives with significant other in a private home with 4 steps with rails on both sides leading onto a porch.? With all mobility ADL performance without any assistive ambulatory device nor adaptive equipment. Equipment Owned/DME: Bilateral axillary crutcges Subjective: Agreeable to PT consult. Denies headache, chest pain, nausea, and dizziness throughout session. Objective: General Observation: ELIZABETH wraps to R LE. Cryocuff to R knee. IV in R UE. TEDS on L leg. Mental Status: Alert and oriented x 4 Pain: None reported ROM: Right Lower Extremity: Hip flexion WFL. Hip abduction WFL. Knee flexion allows 10 to 100 degrees. Knee extension -10 degrees. Ankle dorsiflexion WFL. Ankle plantarflexion WFL. Left Lower Extremity: Hip flexion WFL. Hip abduction WFL. Knee flexion WFL. Ankle dorsiflexion WFL. Ankle plantarflexion WFL. Strength: Right Lower Extremity: Hip flexors 5/5. Hip abductors 5/5. Knee flexors 3-/5. Knee extensors 3-/5. Ankle dorsiflexors 5/5. Ankle plantarflexors 5/5. Left Lower Extremity:Hip flexors 5/5. Hip abductors 5/5. Knee flexors 5/5. Knee extensors 5/5. Ankle dorsiflexors 5/5. Ankle plantarflexors 5/5. Sensation: Intact as to pain and pressure on bilateral lower extremities. Bed Mobility/Transfers: Supine to sit stand by assist with HOB flat Sit to stand contact guard assist with minimal cues needed for hand placement Stand to sit stand by assist with minimal cues needed for hand placement Gait: 150 feet with FWW with stand by assist with partial step through gait pattern. Decreased luma. Good quadriceps activation. Stairs: Up and down 6x 4-inch steps and 4 x 6-inch steps while holding onto B rails with step-to gait pattern with stand by assist. THERA EX: SLR x 10 LAQ x 10 Seated marches x 10 Quaddriceps sets x10 Gluteal sets x 10 Ankle Df/PF x 10 Balance: Static Sitting: Normal Dynamic Sitting: Normal Static Standing: Fair Dynamic Standing: Fair Special Tests: Mobility Limitations Standardized Measure [facility]-PAC 6 clicks Basic Mobility Inpatient Short Form: Raw Score: 23? CMS Score: 11% deficit? ? ? Informed Consent/Education:? Patient instructed in purpose of PT consult and plan of care.? Written HEP education and training competed. Assessment: Stephanie demonstrates functional mobility decline requiring the use of a front-wheeled walker for all mobility ADL performance to maximize indepednence and reduce fall risk.? She will have support of her significant other at home. 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 She is osteoarthritis of the right knee status post total knee arthroplasty on 02/20/2020. She is S/P revision of loose tibial component of R TKA on postoperative day 0. Patient presents with clinical signs and symptoms consistent with current/admitting diagnoses that have resulted to mobility limitations, gait instability, generalized weakness, and impairment of motor control as demonstrated by the following impairment level findings: 1.? Decreased strength to right knee major muscle groups 2.? Impaired standing balance 3.? Impaired activity tolerance 4.? Limitation of joint range of motion in right knee Impairments are contributing to the following functional limitations: 1.? Inability to safely ambulate without assistive device 2.? Increase completion time for mobility ADL performance 3.? Increased fall risk 4.? Inability to negotiate steps alone safely Patient is assessed as a 61774 moderate complexity based on the following: History: 44-year-old female with impairment level findings, functional limitations, and past medical history as indicated above Examination: Demonstrable impairment in strength, balance, and mobility level with underlying impairments and functional limitations as documented above Presentation:Evolving Decision Makin moderate complexity Goals: N/A. PT evaluation and one treatment session only for functional mobility training and HEP instrcution. Plan of Care/Treatment Plan: N/A. PT evaluation and one treatment session only for functional mobility training and HEP instrcution. DISCHARGE RECOMMENDATIONS: Home when medically cleared.? Outpatient PT services return to premorbid independent level and promote return to vocational activities.? Needs front wheeled walker to maximize independence at home. TREATMENT CODE/TIME: 50051 x 20 minutes, 51457 x 18 minutes beginning at 15:28 PM. Thank you for the opportunity to participate in the care of this patient. Yeimi Babcock PT, DPT, CLT [facility] [place], [place]
== END 2022-05-05 16:42 | disposition home or self-care (01) ==
LOC: PDS 14:27 → DSU 17:27
PROVIDERS: PCP Family Medicine; Visit Provider Student in an Organized Health Care Education/Training Program
PROC: (CPT 27487; principal; 2022-05-05 09:45)
DX: T84.038A Mechanical loosening of other internal prosthetic joint, initial encounter (principal); T84.84XA Pain due to internal orthopedic prosthetic devices, implants and grafts, initial encounter; Z96.651 Presence of right artificial knee joint
CPT/HCPCS: 27486; 76942; 81025; 97162; 97530; J0690; J1100; J2250; J2405

== ENCOUNTER 2022-05-20 11:23 | Outpatient (CLI) | payer MEDICAID, SELFPAY ==
--- NOTE | 2022-05-20 11:15 | DI.RAD_ITS ---
Exam(s) XR KNEE RT 2V AP,LAT EXAM: XR KNEE RT 2V AP,LAT CLINICAL HISTORY: f/u revision R knee femoral component. TECHNIQUE: 2D digital imaging was performed. Two images were obtained. AP and lateral views were ob tained. COMPARISON: CR XR KNEE RT 2V AP,LAT from 02/22/2022 FINDINGS: BONES: There are stable post operative changes present. No fracture or dislocation. JOINTS: The orthopedic hardware is in good position. No evidence of hardware loosening. There is a joint effusion. SOFT TISSUE: Normal. IMPRESSION: 1. Stable postoperative changes. 2. Small joint effusion. DATA REPOSITORY: RADIATION DOSE DELIVERED:
== END 2022-05-20 11:24 | disposition home or self-care (01) ==
LOC: DIORS 11:23
PROVIDERS: PCP Family Medicine; Referring Provider Family Medicine; Visit Provider Student in an Organized Health Care Education/Training Program
DX: T84.038A Mechanical loosening of other internal prosthetic joint, initial encounter (principal); T84.84XA Pain due to internal orthopedic prosthetic devices, implants and grafts, initial encounter; Z96.651 Presence of right artificial knee joint
CPT/HCPCS: 73560

== ENCOUNTER 2022-12-16 02:00 | Outpatient (CLI) | payer MEDICAID, SELFPAY ==
--- NOTE | 2022-12-16 07:58 | DI.MAMMO_ITS ---
Exam(s) MAMMO SCREENING EXAM: MAMMO SCREENING CLINICAL HISTORY: SCREENING, Z12.31. TECHNIQUE: Bilateral full field digital CC and MLO mammographic images were obtained with 3D tomosyn thesis and utilizing computer aided detection (CAD). COMPARISON: Prior mammograms were reviewed. FINDINGS: There has been no significant change in the appearance and distribution of the fibroglandular tissue. There are no CAD designations. There are no new spiculated masses nor malignant appearing microcalcification groups. Previously described small nodule in the left breast is again less evident. No new nodules evident There is no significant architectural distortion nor skin thickening-retraction. IMPRESSION: No radiographic evidence of malignancy. BI-RADS Category 1 - Negative Breast Density - Category B - Scattered areas of fibroglandular density Breast density Category C or D implies that the patient has dense breast tissue. Dense breast tissue can make it harder to find cancer on a mammogram. Dense breast tissue is also associated with an incr eased risk of breast cancer. This information about the result of the mammogram report was provided to the patient to raise their awareness. Use this report when you speak with the patient about their risks for breast cancer, which includes their family history. At that time, you may recommend additional screening tests (Ultrasoun d or MRI) as these tests may add significant information. A negative radiographic report should not delay biopsy if a dominant or clinically suspicious mass is present. Up to ten percent of cancers are not identified on mammography. A negative report may reinforce clinical impression. Adenosis and dense breasts may obscure an underlying neoplasm. False positive reports average 6 to 10%. Patient will receive a letter notifying them of these results.
== END 2022-12-16 02:20 ==
LOC: DI 02:01
PROVIDERS: PCP Family Medicine; Visit Provider Family Medicine
DX: Z12.31 Encounter for screening mammogram for malignant neoplasm of breast (principal)
CPT/HCPCS: 77063; 77067

== ENCOUNTER 2023-07-04 12:39 | Outpatient (CLI) | payer MEDICAID, SELFPAY ==
--- NOTE | 2023-07-04 09:45 | DI.RAD_ITS ---
Exam(s) XR KNEE RT 2V AP,LAT EXAM: XR KNEE RT 2V AP,LAT CLINICAL HISTORY: F/U RIGHT TKR REVISION. TECHNIQUE: 2D digital imaging was performed. Two images were obtained. AP and lateral views were ob tained. COMPARISON: CR XR KNEE RT 2V AP,LAT from 05/20/2022 FINDINGS: BONES: There are stable post operative changes of a right total knee replacement present. No fractur e or dislocation. There are enthesophytes at the superior patella. JOINTS: The orthopedic hardware is in good position. No evidence of hardware loosening. There is a small joint effusion. SOFT TISSUE: Normal. IMPRESSION: Stable postoperative changes. DATA REPOSITORY: RADIATION DOSE DELIVERED:
== END 2023-07-04 12:40 | disposition home or self-care (01) ==
LOC: DIORS 12:40
PROVIDERS: PCP Family Medicine; Visit Provider Student in an Organized Health Care Education/Training Program
DX: Z96.651 Presence of right artificial knee joint (principal); Z47.1 Aftercare following joint replacement surgery
CPT/HCPCS: 73560

== ENCOUNTER 2023-07-26 12:17 | Day surgery (SDC) | payer MEDICAID, SELFPAY ==
[2023-07-26] VITALS (9 sets, daily range): BP systolic 135–159; BP diastolic 68–110; PULSE 70–82; RESP 16–25; TEMP 36.1–36.6; O2SAT 96–100; BMI 32.1
--- NOTE | 2023-07-26 12:25 | PDOC.DSDIS_ITS ---
Date of service: 07/26/23 Time of Service: 13:36 Discharge Plan Disposition Patient Disposition: Home Condition: Good Discharge Details Reason For Visit: Arthrofibrosis of right TKA Attending Provider: Karl Aguilera Primary Care Provider: Denise Diamond Home Meds and New Rx's Prescriptions: New acetaminophen 500 mg tablet 500 mg PO Q6H PRN (Reason: pain) Qty: 60 2RF ibuprofen 600 mg tablet 600 mg PO TID PRN (Reason: pain) Qty: 60 0RF oxycodone 5 mg tablet 5 mg PO Q6H PRN (Reason: severe postoperative pain) Qty: 15 0RF Rx Instructions: Take one tablet up to every 6 hours as needed for severe postoperative pain Continued citalopram [Celexa] 20 mg tablet 20 mg PO HS lisinopril 10 MG tablet 10 mg PO DAILY metformin [Glucophage] 1,000 MG tablet 1,000 mg PO BID Discharge Instructions Additional Instructions: Knee Manipulation Discharge Instructions Activity: You should begin moving as soon as possible. You may work on flexion but also equally maintain extension. You may bear weight as tolerated, using crutches only for support/comfort. You should apply ice to help with swelling and elevate when possible (especially in the first few days). Dressings: The knee dressing may come down after 48 hours. You may shower and get the wound wet at that time. You should keep the wounds covered with a bandaid until follow-up. Medications: - Recommend to take up to 1000mg of Acetaminophen (Tylenol) and 600mg of Ibuprofen (Advil) every 8 hours as needed. These larger strength tablets were called in but you also may use [id number]. - Rarely does this require any stronger pain medications but a narcotic, Oxycodone, has been sent in to take as needed for severe postoperative pain. Follow-up: 7-10 days Referrals: Karl Aguilera MD [ [facility] STAFF PHYSICIAN] - Equipment/Supplies: Partial Weight Bearing Crutches Activity:: Elevate Remove Dressings/Wound Care:: 48 hours Shower/Bathe:: 48 hours Diet:: As Tolerated Discharge Orders Discharge Orders: Discharge Order (Routine); Ordered 07/26/23 Ordered By: Darlin Gutierrez
[2023-07-26] MEDS: Lactated Ringers 1,000 ML 80 ML IV (13:28)
[2023-07-26] MEDS: Celecoxib 200 MG CAP 400 MG PO (13:29)
[2023-07-26] MEDS: Acetaminophen 500 MG TAB 1000 MG PO (13:29)
[2023-07-26] MEDS: ceFAZolin 2 GM/50 ML BAG IVPB (13:49)
--- NOTE | 2023-07-26 14:05 | ANES.PREOP_ITS ---
General Info Date of Service Date Performed: 07/26/23 Height: 5 ft 9 in Weight: 98.7 kg Body Mass Index (BMI): 32.1 Surgical Procedure: Operation Date: 07/26/23 14:55 Proposed Procedure Side Surgeon p Knee Arthroscopy Synovectomy Right Karl Aguilera MD Actual Procedure Side Surgeon p Knee Arthroscopy w/ Debridement + Synovectomy Right Karl Aguilera MD Pre-Op Diagnosis Post-Op Diagnosis (1) Crepitus of joint of right knee (2) Painful total knee replacement, right Meds Allergies and Home Medications Allergies Allergy/AdvReac Type Severity Reaction Status Date / Time No Known Allergies Allergy Verified 07/26/23 13:01 Home Medication Medication Instructions Recorded lisinopril 10 mg tablet 10 mg PO DAILY 08/09/16 metformin 1,000 mg tablet 1,000 mg PO BID 12/15/16 (Glucophage) citalopram 20 mg tablet (Celexa) 20 mg PO HS 02/08/20 acetaminophen 500 mg tablet 500 mg PO Q6H PRN pain #60 tabs 07/26/23 ibuprofen 600 mg tablet 600 mg PO TID PRN pain #60 tabs 07/26/23 oxycodone 5 mg tablet 5 mg PO Q6H PRN severe 07/26/23 postoperative pain #15 tabs Current Visit Medications: Current Medications Generic Name Dose Route Start Last Admin Trade Name Freq PRN Reason Stop Dose Admin Acetaminophen 1,000 mg 07/26/23 06:00 Acetaminophen 500 Mg Tab PO 07/26/23 16:00 PREOP SUSANA Acetaminophen 650 mg 07/26/23 12:24 Acetaminophen 325 Mg Tab PO 08/25/23 12:23 Q4H PRN PRN Celecoxib 400 mg 07/26/23 06:00 Celecoxib 200 Mg Cap PO 07/26/23 16:00 PREOP SUSANA Ringer's Solution 1,000 mls @ 80 mls/hr 07/26/23 06:00 IV 07/26/23 23:59 INFUSION SUSANA Cefazolin Sodium/Dextrose 2 gm in 50 mls @ 100 mls/hr 07/26/23 06:00 Ancef Duplex IVPB 07/26/23 23:59 PREOP SUSANA IV Miscellaneous Supplies 1 each 07/26/23 06:00 Iv Access IV 07/26/23 23:59 DIRECTED SUSANA Oxycodone HCl 5 mg 07/26/23 13:36 Oxycodone 5 Mg Tab PO 08/25/23 13:35 Q3H PRN PRN Pain Sodium Chloride 0 ml 07/26/23 06:00 Normal Saline Flush 10 Ml Syr IV 07/26/23 23:59 PRN PRN Sodium Chloride 0 ml 07/26/23 06:00 Normal Saline 10 Ml Vial IJ 07/26/23 23:59 DIRECTED PRN Sterile Water 0 ml 07/26/23 06:00 Water,Injection,Sterile 10 Ml Vial IJ 07/26/23 23:59 DIRECTED PRN PFSH Active Problems Active Problems: Problem Status Onset Code Crepitus of joint of right knee M23.8X1 Pain of right heel M79.671 Right Achilles tendinitis M76.61 Pes anserinus bursitis of right knee M70.51 Left lateral epicondylitis M77.12 Arthrofibrosis of total knee arthroplasty T84.82XA Left carpal tunnel syndrome 08/09/16 G56.02 Left wrist tendinitis 03/09/17 M77.8 Depression F32.9 Hyperlipidemia E78.5 Hypertension I10 Diabetes mellitus E11.9 Surgical History Surgical History History of revision of total replacement of right knee joint (05/05/22) Tibial component Hx of carpal tunnel repair Status post total right knee replacement (02/20/20) De Quervain's tenosynovitis, left (03/09/17) Status post Dequerveins release performed on 05/01/2018 Tobacco Smoking/Tobacco Use Status: Current every day Tobacco Type: cigarettes Smoking cigarettes per day: 7 Years smoked: 32 Smoking pack-years: 11.20 Alcohol Alcohol Intake: current Alcohol intake frequency: holidays/special occasions only Alcohol type: other Substance Use Substance use: Never Substance use type: does not use Vital Signs and Lab Results Vital Signs Most Recent Vital Signs in EMR: Most Recent Vital Signs Temp Pulse Resp BP Pulse Ox 36.6 C 82 16 143/90 H 98 07/26/23 12:55 07/26/23 12:55 07/26/23 12:55 07/26/23 12:55 07/26/23 12:55 Point of Care Results Point of Care Results: POC- Test(urine) Negative 07/26/23 13:27 Finger Stick Blood Glucose 183 07/26/23 13:33 Lab Results Blood Type / Crossmatch: 2 No Data to Display Complete Blood Count: 2 No Data to Display Complete Metabolic Panel: 2 No Data to Display Liver Function Panel: 2 No Data to Display Coagulation Panel: 2 No Data to Display Cardiac Panel: 2 No Data to Display Arterial Blood Gas: 2 No Data to Display Venous Blood Gas: 2 No Data to Display Pancreas Panel: 2 No Data to Display Thyroid Panel: 2 No Data to Display Infectious Disease: 2 No Data to Display Blood Cultures: 2 No Data to Display Toxicology Panel: 2 No Data to Display Panel: 2 No Data to Display Anesthesia Assessment and Plan Anesthesia History Personal History: No History of Anesthesia Complications Family History: Family History Unknown Exercise Tolerance Exercise Tolerance: Metabolic Equivalents>4 Pertinent Negatives Pertinent Negatives: No Symptoms of GERD, No Major Cardiovascular Symptoms or Complaints, No Major Pulmonary Symptoms or Complaints and No History of CVA/TIA Cardiac & Pulmonary Exam Cardiac Exam: Normal S1/S2 Heart Sounds Pulmonary Exam: Clear Bilateral Breath Sounds Implantable Cardiac Device Does patient have a Pacemaker or an ICD?: No Airway Exam Known Difficult Airway: No Mallampati Class: 2 Mouth Opening: Normal (> 3cm) Thyromental Distance: Greater than 3 cm Neck Range of Motion: Full ROM Neck Circumference: Normal Teeth Condition: Generalized Poor Dentition Tooth Numberin 1. Loose per patient ASA Classification ASA Score: ASA 2 Emergency Case?: No NPO Status NPO Status: NPO Clears >2 hours, Solids >8 hours Status Status: Negative HCG Anesthesia Plan Resuscitation Status: Full Code Anesthesia Technique: General Anesthesia Airway Planned: Endotracheal Tube Monitors Used: Standard Monitors
[2023-07-26] MEDS: EPINEPHrine 10 MG/10 ML ML (14:09)
[2023-07-26] MEDS: Bupivacaine 0.5% Pres-Free 30 ML VIAL (14:31)
[2023-07-26] MEDS: Tranexamic Acid 1,000 MG/10 ML VIAL 1000 MG (14:36)
[2023-07-26] MEDS: Normal Saline 100 ML 30 ML (14:36)
--- NOTE | 2023-07-26 15:08 | ROE_ITS ---
Date of service: 07/26/23 Time of Service: 13:30 Operative Note Operative Note DATE OF PROCEDURE: 07/26/23 PRE-OP DIAGNOSIS: Arthrofibrosis and Crepitus of Knee Replacement - RIGHT KNEE POST-OP DIAGNOSIS: same PROCEDURE: Arthroscopic Synovectomy of 3 Compartments with Manipulation - RIGHT Knee SURGEON: Karl Aguilera ANESTHESIA TYPE: General LMA/ETT Refer to Anesthesia Record ESTIMATED BLOOD LOSS: 0 PATHOLOGY: none sent COMPLICATIONS: None Patient was transported to: PACU Patient's condition: stable Indications: I have seen Stephanie in clinic for symptoms of arthrofibrosis and crepitus of the knee following knee replacement surgery. Nonoperative measures were exhausted but disability due to lack of motion persisted. I discussed knee arthroscopy with synovectomy with maniuplation with the patient. I reviewed the risks of the procedure to include, but not limited to, bleeding, infection, pain, continued stiffness, recurrence, blood clot. Despite these risks, the patient elected to proceed. Findings: Dense adhesions and some synovitis seen within the knee. Procedure Description: Stephanie was greeted in the preoperative holding area where the correct side was identified and marked. The consent was reviewed with the patient and signed. The history and physical was updated. All questions were answered. She was taken back to the operating room. The patient was placed into the supine position on the operating room table. All bony prominences were well padded. Prophylactic antibiotics in the form of Cefazolin were administered. The left leg was then prepped with Chloraprep and draped in a standard fashion with stockinette and extremity drape. A timeout to confirm correct identity, side and site, procedure, allergies, anesthesia, and medical concerns was performed. The leg was placed into a pneumatic leg berkowitz, [id number]. A standard lateral portal was made at the lateral border of the patella tendon in line with the inferior pole of the patella, soft spot. The skin and deep tissue was incised sharply and the blunt trochar was inserted atraumatically. At this point had visualization of the femoral component. A superolateral portal was then established with spinal needle localization just superior and lateral to the patella. A knife was taken down through the skin and soft tissue to enter the knee joint. Starting in the superior compartment above the femoral component and anterior to the femur I released all scarring between the anterior femoral synovium and the overlying extensor mechanism. This was taken through all of any noticeable scar tissue until the superior patellar pouch was fully released and mobile. This resection was carried out mostly with electrocautery as well as shaver. Once this was released fully from lateral to medial superiorly I then continue working down the lateral gutter. All scar tissue in the lateral gutter was released so there is normal space and movement between the capsular tissues and the edge of the femoral component and femur. This was taken down through the lateral gutter such that I was able to identify the polyethylene to its posterior corner. Once again, all scar tissue in this area was resected so the polyethylene was easily visible and there is no interposed tissue in the back or the polyethylene was identified. I think continue to work anteriorly. To continue the synovectomy from the lateral compartment to the anterior compar tment into the medial compartment, I placed a medial portal under spinal needle localization. Once this was in place it became another working portal and I continued the synovectomy through the anterior compartment to the medial compartment. Once again, I freed up the medial gutter so I was able to visualize the polyethylene from the anterior posterior margins. There is no interposed tissue after full synovectomy was performed. Adhesions between the capsule and the femur were released. This was continued up the medial gutter until it met up with the releases performed previously in the superior compartment. Any remnant scar tissue from around the patella was then removed with a shaver and electrocautery. The arthroscope was brought back into the suprapatellar pouch and the leg was in full extension. The knee was thoroughly irrigated with the arthroscopic fluid on high flow and pressure. Inflow was stopped and excess fluid was removed. The wounds were closed with 4-0 Nylon. 0.5% bupivacaine was injected around the portal sites and into the knee. The wounds were dressed with Xeroform, 4x4 gauze, ABD pad, Kerlix and an ELIZABETH wrap. A cryo-cuff was applied. The patient tolerated the procedure well and was returned to the Same Day Surgery area in a stable condition suffering no known complication..
--- NOTE | 2023-07-26 16:13 | W.ANESPOSTOP ---
Postoperative Evaluation Date, Time and Location Date Performed: 07/26/23 Time Performed: 15:38 Patient Location: Day Surgery Unit Vital Signs Most Recent Imported Vital Signs: Most Recent Vital Signs Temp Pulse Resp BP Pulse Ox 36.2 C L 71 17 141/88 H 96 07/26/23 15:33 07/26/23 15:33 07/26/23 15:33 07/26/23 15:33 07/26/23 15:33 Pain Score Most Recent Pain Score: Most Recent Pain Score Pain Level 0 07/26/23 15:33 Assessment Mental Status: Awake (Alert & Oriented to Patient Baseline) Airway and Respiratory Function: Patent airway with normal (patient baseline) respiratory exam Cardiovascular Function: Hemodynamically Stable Hydration Status: Adequately Hydrated Nausea & Vomiting: No Nausea or Vomiting Pain: Pt. Denies Any Pain Peripheral Nerve Block: Patient did not receive a nerve block
== END 2023-07-26 16:20 | disposition home or self-care (01) ==
PROVIDERS: PCP Family Medicine; Visit Provider Student in an Organized Health Care Education/Training Program
PROC: (CPT 29870; principal; 2023-07-26 14:45)
DX: T84.82XA Fibrosis due to internal orthopedic prosthetic devices, implants and grafts, initial encounter (principal); Z96.651 Presence of right artificial knee joint
CPT/HCPCS: 29876; 81025; J0665; J0690; J1100; J2001; J2250; J2405; J2704; J3010

== ENCOUNTER 2023-09-16 10:29 | Outpatient (REF) | payer MEDICAID, SELFPAY ==
[2023-09-16 17:45] LABS: COMMENT (LAB VIEW ONLY) 88.39 mg/dL; Microalb ug/mg Crea 23.1 ug/mg Cr
== END 2023-09-16 10:30 | disposition home or self-care (01) ==
LOC: NCHCN 10:29
PROVIDERS: PCP Family Medicine; Visit Provider Student in an Organized Health Care Education/Training Program
DX: E11.9 Type 2 diabetes mellitus without complications (principal)
CPT/HCPCS: 82043; 82570

== ENCOUNTER → 2024-01-09 02:15 | Outpatient (CLI) | payer MEDICAID, SELFPAY ==
--- NOTE | 2024-01-09 07:40 | DI.CT_ITS ---
Exam(s) CT LOWER EXTREMITY RT WO EXAM: CT LOWER EXTREMITY RT WO CLINICAL HISTORY: PAIN, ?LOOSENING total knee replacement,t84.84xa,z96.651. TECHNIQUE: Imaging Protocol: Axial computed tomography images with coronal and sagittal reformatted images were created and reviewed. CONTRAST MATERIAL: Intravenous: Omnipaque 350 Contrast volume:structured data in ml Contrast route:IV - COMPARISON: CR XR KNEE RT 2V AP,LAT from 02/22/[address] LOWER EXTREMITY RT WO from 03/12/2022 CR XR KNEE RT 2V AP,LAT from 07/04/2023 FINDINGS: Bones: There is no evidence of fracture or dislocation. Total knee prosthesis creates significant artifact. This significantly limits evaluation for loosening. Abnormal lucency was noted on plain f ilms in June at the tibial component of the prosthesis.. Joints: There is a moderate-sized joint effusion with synovial thickening. No significant periartic ular spurring. Soft Tissues: No significant edema or focal collection. IMPRESSION: Total knee prosthesis creates significant artifact. Loosening cannot be evaluated. Moderate-sized joint effusion with synovial thickening. RADIATION DOSE DELIVERED: Total DLP DATA REPOSITORY: All CT scans at this facility are submitted to the National Radiology Data Registry (NRDR) Dose Index Registry (DIR) with the [employer] (ACR). RADIATION OPTIMIZATION: All CT scans at this facility use at least one of these dose optimization te chniques: automated exposure control; mA and/or kV adjustment per patient size (includes targeted exa ms where dose is matched to clinical indication); or iterative reconstruction.
== END ==
PROVIDERS: PCP Student in an Organized Health Care Education/Training Program; Visit Provider Student in an Organized Health Care Education/Training Program
DX: T84.84XA Pain due to internal orthopedic prosthetic devices, implants and grafts, initial encounter (principal); Z96.651 Presence of right artificial knee joint; M25.461 Effusion, right knee
CPT/HCPCS: 73700

== ENCOUNTER 2024-01-18 01:44 | Outpatient (CLI) | payer MEDICAID, SELFPAY ==
--- NOTE | 2024-01-18 07:15 | DI.NM_ITS ---
Exam(s) NM BONE SCAN 3 PHASE EXAM: NM BONE SCAN 3 PHASE CLINICAL HISTORY: PAIN, ?LOOSENING ortho device,T84.84xa,Z96.651. TECHNIQUE: Injected Dose: 25 mCi Tc-99m MDP COMPARISON: CR XR STANDING ALIGNMENT from 03/07/2020 CR XR KNEE RT 2V AP,LAT from 02/22/2022 NM NM BONE SCAN 3 PHASE from 03/12/2022 CR XR KNEE RT 2V AP,LAT from 05/20/2022 CR XR KNEE RT 2V AP,LAT from 07/04/2023 FINDINGS: Perfusion: Symmetric. Blood Pool: There is again seen increased radiotracer uptake adjacent to the prosthesis particularly in the tibial component. It have a similar appearance to the examination from 03/12/2022. Delayed: There is again seen increased radiotracer uptake seen along the bone prosthesis interface in the distal femur proximal tibia and patella. This is unchanged compared to the prior examination. IMPRESSION: 1. No change in the periprosthetic uptake in the right knee since March 2022. DATA REPOSITORY:
== END 2024-01-18 02:04 ==
PROVIDERS: PCP Student in an Organized Health Care Education/Training Program; Visit Provider Student in an Organized Health Care Education/Training Program
DX: T84.84XA Pain due to internal orthopedic prosthetic devices, implants and grafts, initial encounter (principal); Z96.651 Presence of right artificial knee joint
CPT/HCPCS: 78315

== ENCOUNTER 2024-08-23 10:16 | Outpatient (REF) | payer MEDICAID, SELFPAY ==
[2024-08-23 16:22] LABS: ALT 24 U/L (14-59); AST 13 U/L (15-37); Albumin 3.8 g/dL (3.4-5.0); Alkaline Phosphatase 97 U/L (46-116); Anion Gap 9.9 mmol/L (3-11); BUN 15 mg/dL (7-18); Bilirubin, Total 0.3 mg/dL (0.2-1.0); CO2 26.1 mmol/L (21.0-32.0); CREATININE 0.8 mg/dL (0.55-1.02); Calcium 9.8 mg/dL (8.5-10.1); Calculated LDL 71 mg/dL (<100); Chloride 104 mmol/L (98-107); Cholesterol 147 mg/dL (<200); Estimated GFR 89.15 (mL/min/1.73m2); Glucose 309 mg/dL (74-106); HDL Cholesterol 48 mg/dL (>or=50); Magnesium 1.7 mg/dL (1.8-2.4); Potassium 4.6 mmol/L (3.5-5.1); Sodium 140 mmol/L (136-145); Total Protein 7.2 g/dL (6.4-8.2); Triglyceride 144 mg/dL (<150); Vitamin B12 350 pg/mL (193-986)
[2024-08-24 10:04] LABS: Hepatitis C Ab w Rflx HCV PCR Negative (Negative)
[2024-08-24 11:57] LABS: HIV-1/2 Ag & Ab Screen Negative (Negative)
== END 2024-08-23 10:17 | disposition home or self-care (01) ==
LOC: NCHCN 10:16
PROVIDERS: PCP Student in an Organized Health Care Education/Training Program; Visit Provider Nurse Practitioner Family
DX: I10 Essential (primary) hypertension (principal); E11.9 Type 2 diabetes mellitus without complications; Z11.59 Encounter for screening for other viral diseases; Z11.4 Encounter for screening for human immunodeficiency virus [HIV]
CPT/HCPCS: 80053; 80061; 86803; 87389; 82607; 83735

== ENCOUNTER 2024-10-07 00:40 | Observation (INO) | payer MEDICAID, SELFPAY ==
[2024-10-07] VITALS (60 sets, daily range): BP systolic 114–172; BP diastolic 51–94; PULSE 60–84; RESP 18–20; TEMP 36.2–36.7; O2SAT 94–100
--- NOTE | 2024-10-07 00:43 | ED.GENADUL_ITS ---
Discharge Plan Disposition Patient Disposition: Admit to [facility] Condition: Stable Discharge Details Clinical Impression: Visual disturbance, Expressive aphasia, Throbbing headache, Hypomagnesemia Primary Care Provider: Sandra Greenwood ED Provider: Tone Dyer [place] Meds and New Rx's Prescriptions: No Action citalopram [Celexa] 20 mg tablet 20 mg PO HS rosuvastatin 20 mg tablet 20 mg PO DAILY metformin 500 mg tablet extended release 24hr 2,000 mg PO DAILY lisinopril 10 mg tablet 20 mg PO DAILY [id number] [B-Complex Plus B-12] PO ibuprofen 600 mg tablet 600 mg PO TID PRN (Reason: pain) Qty: 60 0RF HPI General Mode of arrival: ambulatory . Date/Time Provider Initiated Documentation: 10/07/24 00:43 . Limitations to Documentation: no limitations . Information obtained by: patient and RN notes reviewed . HPI Narrative: Patient presents to ED with complaint of visual change, difficulty speaking, headache. Patient reports that yesterday on Tuesday at work she developed a visual change that she described as seeing stars. Denies having a loss of vision or scintillating lines, more of brightness and stars but not flashing in nature. She then attempted to speak with coworkers and while she could understand them they were unable to understand her, stating she was not making any sense. Subsequently developed a throbbing left-sided headache that resolved after a couple of hours. The visual change and speech difficulty lasted maybe 5 minutes or so. She thought it might be related to blood sugar. She did not seek medical treatment at that time. She told her about it that night and he agreed that if it happened again she would go to the ED. Tonight around midnight same type of thing happened where she developed the brightness and s tars in her vision. Her had already gone to bed but she began speaking out loud and talking to her cats and realized she was not making sense to herself. She woke her up. Symptoms resolved although now she has a left-sided headache once again. She has never experienced anything like this previously. She denies any history of headaches or migraines. She does have a history of diabetes, hypertension, hyperlipidemia and is a smoker though has cut way back. She denies any loss of her vision, numbness, weakness, dizziness, gait disturbance, chest pain, shortness of breath, syncope. Related Data Home Medications ?Medication ?Instructions ?Recorded ?Confirmed citalopram 20 mg tablet (Celexa) 20 mg PO HS 02/08/20 10/07/24 ibuprofen 600 mg tablet 600 mg PO TID PRN pain #60 tabs 07/26/23 10/07/24 rosuvastatin 20 mg tablet 20 mg PO DAILY 09/19/23 10/07/24 lisinopril 10 mg tablet 20 mg PO DAILY 08/23/24 10/07/24 metformin 500 mg tablet,extended 2,000 mg PO DAILY 08/23/24 10/07/24 release 24hr (osmotic) [id number] PO 10/07/24 Previous Rx's ?Medication ?Instructions ?Recorded ibuprofen 600 mg tablet 600 mg PO TID PRN pain #60 tabs 07/26/23 Allergies Allergy/AdvReac Type Severity Reaction Status Date / Time No Known Allergies Allergy Verified 10/07/24 01:05 General SPENCER: 4 Exam Narrative Exam Narrative: Gen: WDWN female in NAD. Vitals per triage. HENT: NC/AT. Normal face. Eyes: PERRL and EOMI. VF in tact to confrontation. Neck: Supple, trachea midline. Chest: Normal respirations. Lungs CTAB. CV: RRR w/o murmur. Good radial pulses. Abd: S/ND/NT. Neuro: A+Ox3. Normal speech, mentation, gait. CN II-XII in tact. Normal str ength. Normal sensation. Ext: No C/C/E. Medical Decision Making This is a 49-year-old female with risk factors for CVA presenting with positiv e vision changes, speech difficulty both lasting about 5 minutes and occurring together subsequently followed by headache. This most likely fits migraine with aura, however, patient is 49 years old and has never had events or headaches in the past. Therefore, must investigate the possibility of TIA/CVA. Fingerstick here is 185, not likely related to blood sugar. She is not describing flashing lights in her peripheral visual field which she would expect with retinal detachment. She is neurologically intact at this time. Will proceed with TIA workup including CTA of brain and neck and teleneurology consult. Patient's EKG is normal per my read. Laboratory studies unremarkable other than hypomagnesemia for which 2 g of magnesium was given IV. CTA of brain and neck essentially unremarkable with only some stenosis in the posterior vertebral arteries. Patient has had no recurrent neuro events. She has been evaluated by neurology and I am waiting to hear back from the neurologist. Discussed with neurology, Dr. Haley. He does think this is most likely migraine but given the onset at a late age with risk factors for TIA/CVA he is concerned of the possibility of TIA. While the preliminary radiology read felt the noncontrast brain was unremarkable, Dr. Haley feels that there is a hypodense area in the insular portion which may be consistent with subacute stroke. Therefore, his recommendation is that migraine becomes a diagnosis of exclusion. Patient should be admitted for telemetry monitoring and MRI Tuesday morning. Recommend starting aspirin with loading dose which will be given here followed by 81 mg a day, clopidogrel with loading dose here followed by 75 mg a day and high-dose atorvastatin again first dose being given here. I have spoke with the patient and her and explained to them the thought process and concerns. She is agreeable to admission. I have placed a call to the hospitalist to arrange for admission. Lab Data Lab results reviewed: Yes I reviewed the patient's lab results. Lab results narrative: see MDM ECG Data Attestation: I personally reviewed and interpreted this ECG (s) as follows: Prior ECG tracings: not available for review Interpretation: Normal EKG PFSH All Active Problems (Updated 10/07/24 @ 03:37 by Tone Dyer MD) Hypomagnesemia (Acute) Throbbing headache (Acute) Expressive aphasia (Acute) Visual disturbance (Acute) Loosening of prosthesis of right knee joint (Acute) Painful total knee replacement, right (Acute) Pain of right heel (Acute) Right Achilles tendinitis (Acute) Pes anserinus bursitis of right knee (Acute) Left lateral epicondylitis (Acute) Left carpal tunnel syndrome (Acute 08/09/16) Left wrist tendinitis (Acute 03/09/17) Medical History Depression Hyperlipidemia Hypertension Diabetes mellitus Surgical History Arthrofibrosis of total knee arthroplasty RIGHT S/P arthroscopic debridement and manipulation: 07/30/2020 S/P repeate arthroscopic debridement and manipulation: 07/26/2023 History of revision of total replacement of right knee joint (05/05/22) Tibial component Hx of carpal tunnel repair Status post total right knee replacement (02/20/20) De Quervain's tenosynovitis, left (03/09/17) Status post Dequerveins release performed on 05/01/2018 Social History Smoking/Tobacco Use Status: Current every day Tobacco Type: cigarettes Years smoked: 32 Smoking risk assessment performed?: Yes Alcohol Intake: current Alcohol Intake frequency: holidays/special occasions only Alcohol type: other Drug use: Never Substance use type: does not use Housing: apartment Current gender identity: female Do you feel safe at home: Yes Do you feel safe in your relationship?: Yes
--- NOTE | 2024-10-07 00:45 | DI.CT_ITS ---
Exam(s) CT BRAIN NECK CTA EXAM: CT BRAIN NECK CTA CLINICAL HISTORY: TIA. TECHNIQUE: Imaging Protocol: Axial CT angiography was performed with multi-slice acquisition and mu lti-planar and MIP reconstructions. CONTRAST MATERIAL: Intravenous: Omnipaque 350 Contrast volume:70 ml COMPARISON: No exams were available for comparison FINDINGS: CT Head W/O and W contrast: Ventricles and Extra axial spaces: Normal in size and morphology for the patient's age. Hemorrhage: None. Cerebral parenchyma: No evidence of acute infarct or mass. Midline shift: None. Brainstem/Cerebellum: No acute findings.. Calvarium: Normal. Visualized Paranasal sinuses/Mastoids: Mucous retention in the maxillary sinuses. Soft Tissues: Unremarkable. Enhancement: Normal. Venous sinuses are patent. Pituitary: Partially empty sella. CTA Brain W: Internal Carotid Arteries: Right: No aneurysm, occlusion or significant stenosis. Left: No aneurysm, occlusion or significant stenosis. Middle Cerebral Arteries: Right: No aneurysm, occlusion or significant stenosis. Left: No aneurysm, occlusion or significant stenosis. Anterior Cerebral Arteries: Right: No aneurysm, occlusion or significant stenosis. Left: No aneurysm, occlusion or significant stenosis. Posterior cerebral Arteries: Right: No aneurysm, occlusion or significant stenosis. Left: origin. No aneurysm, occlusion or significant stenosis. Vertebral Arteries: Right: No aneurysm, occlusion or significant stenosis. Left: No aneurysm, occlusion or significant stenosis. Basilar Artery: No aneurysm, occlusion or significant stenosis. CTA Neck W: Common Carotid: Right: No dissection, occlusion or significant stenosis. Left: No dissection, occlusion or significant stenosis. External Carotid: Right: No dissection, occlusion or significant stenosis. Left: No dissection, occlusion or significant stenosis. Internal Carotid: Right: No dissection, occlusion or significant stenosis. Left: No dissection, occlusion or significant stenosis. Vertebral Artery: Right: No dissection, occlusion or significant stenosis. Left: No dissection, occlusion or significant stenosis. Lung Apices: No acute findings. Bones: No acute abnormality. Soft Tissues: Normal. IMPRESSION: 1. CTA brain: No evidence of aneurysm, occlusion or significant stenosis. 2. Head CT: No acute abnormality. 3. CTA neck: No visible plaque. No evidence of occlusion, significant stenosis or dissection. RADIATION DOSE DELIVERED: Total DLP DATA REPOSITORY: All CT scans at this facility are submitted to the National Radiology Data Registry (NRDR) Dose Index Registry (DIR) with the [employer] (ACR). RADIATION OPTIMIZATION: All CT scans at this facility use at least one of these dose optimization te chniques: automated exposure control; mA and/or kV adjustment per patient size (includes targeted exa ms where dose is matched to clinical indication); or iterative reconstruction.
--- NOTE | 2024-10-07 00:45 | RT.EKG_ITS ---
APPROVED REPORT Exam: Resting ECG Reason for Exam: TIA Patient Location: E HR:70 bpm ECG Measurements Heart Rate 70 AXIS ME 139 P 35 QRSd 94 QRS 23 QT 410 T 51 QTc 441 Conclusion Sinus rhythm...normal P axis, V-rate 60- 99 Normal Electrocardiogram
[2024-10-07 01:06] LABS: Abs Immature Grans 0.02 10^3/uL (0.0-0.06); Absolute Basophil Count 0.03 10^3/uL (0.0-0.2); Absolute Eosinophil Count 0.18 10^3/uL (0.0-0.7); Absolute Lymphocyte Count 2.93 10^3/uL (1.2-3.4); Absolute Monocyte Count 0.49 10^3/uL (0.1-0.8); Absolute Neutrophil Count 4.76 10^3/uL (1.2-6.7); Basophils % 0.4 %; Eosinophils % 2.1 %; HCT 43.3 % (36.0-46.0); HGB 14.3 g/dL (11.2-15.7); Immature Grans % 0.2 %; Lymphocytes % 34.8 %; MCH 28.7 pg (27.0-33.0); MCV 87 fL (80-95); MPV 10.9 fL (8.0-11.0); Monocytes % 5.8 %; Neutrophils % 56.7 %; Platelet Count 281 10^3/uL (130-400); RBC 4.99 10^6/uL (3.93-5.22); RDW-SD 40.6 fL; WBC 8.41 10^3/uL (4.4-10.8)
[2024-10-07] MEDS: Normal Saline - Diluent 50 ML VIAL IJ (01:25)
[2024-10-07 01:26] LABS: ALT 23 U/L (14-59); AST 17 U/L (15-37); Albumin 3.8 g/dL (3.4-5.0); Alkaline Phosphatase 84 U/L (46-116); Anion Gap 8.7 mmol/L (3-11); BUN 10 mg/dL (7-18); Bilirubin, Total 0.4 mg/dL (0.2-1.0); CO2 28.3 mmol/L (21.0-32.0); CREATININE 0.7 mg/dL (0.55-1.02); Calcium 9.7 mg/dL (8.5-10.1); Chloride 101 mmol/L (98-107); Estimated GFR 104.65 (mL/min/1.73m2); Glucose 204 mg/dL (74-106); Magnesium 1.4 mg/dL (1.8-2.4); Potassium 3.6 mmol/L (3.5-5.1); Sodium 138 mmol/L (136-145); Total Protein 7.6 g/dL (6.4-8.2)
[2024-10-07] MEDS: Omnipaque 350 MG/ML 100 ML BTL IJ (01:26)
[2024-10-07 01:41] LABS: Bilirubin Negative (Negative); Blood Trace-intact (Negative); Clarity Clear (Clear); Glucose Negative (Negative); Ketones Negative (Negative); Leukocyte Esterase Negative (Negative); Nitrite Negative (Negative); Specific Gravity 1.025 (1.005-1.025); Urobilinogen 0.2 mg/dL (Up to 0.2)
[2024-10-07 01:43] LABS: Bacteria Rare HPF (Negative); Crystals Negative HPF (Negative); Epithelial Cells Rare HPF (Negative); WBC Negative HPF (0-5)
[2024-10-07 01:44] LABS: C & S Indicated? No; Casts Negative LPF (Negative); Mucus Trace (Negative)
[2024-10-07] MEDS: MAGNESIUM SULFATE 2 GM/50 ML BAG IV_INF (01:58)
--- NOTE | 2024-10-07 02:14 | DI.VRAD_ITS ---
PROCEDURE INFORMATION: Exam: CTA Head Without And With Contrast, Arteriography Exam date and time: 10/07/2024 1:12 AM Age: 49 years old Clinical indication: Stroke-like symptoms; Speech disturbance; Additional info: TIA TECHNIQUE: Imaging protocol: Computed tomographic angiography of the head without and with contrast. Exam focused on the arteries. 3D rendering (Not supervised by radiologist): MIP and/or 3D reconstructed images were created by the technologist. Contrast material: OMNI 350; Contrast volume: 70 ml; Contrast route: INTRAVENOUS (IV); Other technique: STROKE PROTOCOL was implemented. COMPARISON: No relevant prior studies available. FINDINGS: ANTERIOR CIRCULATION: Right internal carotid artery: Intracranial segment is patent with no significant stenosis or occlusion. No aneurysm. Right middle cerebral artery: No occlusion or significant stenosis. No aneurysm. Right anterior cerebral artery: No occlusion or significant stenosis. No aneurysm. Left internal carotid artery: Intracranial segment is patent with no significant stenosis. No aneurysm. Left middle cerebral artery: No occlusion or significant stenosis. No aneurysm. Left anterior cerebral artery: No occlusion or significant stenosis. No aneurysm. POSTERIOR CIRCULATION: Right vertebral artery: No occlusion or significant stenosis. No aneurysm. Left vertebral artery: No occlusion or significant stenosis. No aneurysm. Basilar artery: No occlusion or significant stenosis. No aneurysm. Right posterior cerebral artery: Moderate P2 segment stenosis. No occlusion or significant stenosis. No aneurysm. Left posterior cerebral artery: origin. Moderate P2 segment stenosis. No occlusion or significant stenosis. No aneurysm. HEAD: Brain: Normal. No hemorrhage. Unremarkable white matter. No mass effect. No brain edema. Cerebral ventricles: Normal. No ventriculomegaly. Bones: Unremarkable. No acute fracture. Paranasal sinuses: Retention cyst in the bilateral maxillary sinuses. No fluid levels. Mastoid air cells: Visualized mastoids are normal. No mastoid effusion. Soft tissues: Unremarkable. IMPRESSION: 1. No large vessel occlusion. 2. Bilateral moderate P2 segment stenosis. 3. Retention cysts in the bilateral maxillary sinuses. 4. Otherwise unremarkable CT head. ASSESSMENT: ASPECTS ([place] Stroke Program Early CT Score) is 10. PROCEDURE INFORMATION: Exam: CTA Neck Without And With Contrast Exam date and time: 10/07/2024 1:12 AM Age: 49 years old Clinical indication: Stroke-like symptoms; Speech disturbance; Additional info: TIA TECHNIQUE: Imaging protocol: Computed tomographic angiography of the neck without and with contrast. Exam focused on the cervical segments of the vasculature. 3D rendering (Not supervised by radiologist): MIP and/or 3D reconstructed images were created by the technologist. Contrast material: OMNI 350; Contrast volume: 70 ml; Contrast route: INTRAVENOUS (IV); COMPARISON: No relevant prior studies available. FINDINGS: Right common carotid artery: No significant stenosis. No dissection or occlusion. Right internal carotid artery: No significant stenosis of the extracranial segment. No dissection or occlusion. Right external carotid artery: No occlusion or significant stenosis of the origin. Left common carotid artery: No significant stenosis. No dissection or occlusion. Left internal carotid artery: No significant stenosis of the extracranial segment. No dissection or occlusion. Left external carotid artery: No occlusion or significant stenosis of the origin. Right vertebral artery: No significant stenosis. No dissection or occlusion. Left vertebral artery: No significant stenosis. No dissection or occlusion. Soft tissues: No significant soft tissue swelling. Bones/joints: No acute fracture. IMPRESSION: 1. Normal right and left extracranial internal carotid arteries by NASCET criteria. 2. Widely patent bilateral vertebral arteries. REFERENCES: NASCET CRITERIA. The degree of stenosis in the cervical segment of the internal carotid artery is based on NASCET criteria. Normal is no stenosis. Mild is less than 50% stenosis. Moderate is 50-69% stenosis. Severe is 70% to 99% stenosis. Total occlusion is no detectable patent lumen. Dictated and Authenticated by: Ellis Shukla MD. Orderin Gomez Wayne MD
--- NOTE | 2024-10-07 02:27 | NUR.NOTE ---
15 min ago. telenuro on screen Nursing Note:
[2024-10-07] MEDS: Atorvastatin 40 MG TAB 80 MG PO (03:41)
[2024-10-07] MEDS: Aspirin 81 MG CHEW 324 MG CH (03:42)
[2024-10-07] MEDS: Clopidogrel 300 MG TAB PO (03:42)
--- NOTE | 2024-10-07 05:00 | W.PM.HP.N ---
Date of service: 10/07/24 Time of Service: 05:00 Assessment and Plan Assessment and plan (1) Expressive aphasia: Status: Acute Assessment and plan: The patient comes in with 2 very brief episodes of visual disturbances and expressive aphasia which resolved on its own and then succeeded by a severe excruciating headache on the left side. On today's exam she has a normal and reassuring neurological exam. Her CT head does not show any large vessel occlusion. She did have a tele-neuro consult ER has discussed with neurology, Dr. Haley. He does think this is most likely migraine but given the onset at a late age with risk factors for TIA/CVA he is concerned of the possibility of TIA. While the preliminary radiology read felt the noncontrast brain was unremarkable, Dr. Haely feels that there is a hypodense area in the insular portion which may be consistent with subacute stroke. Therefore, his recommendation is that migraine becomes a diagnosis of exclusion. Patient should be admitted for telemetry monitoring and MRI Tuesday morning. Recommend starting aspirin with loading dose which will be given here followed by 81 mg a day, clopidogrel with loading dose here followed by 75 mg a day and high-dose atorvastatin again first dose being given here. -Start ASA/Plavix -Monitor BP -Start Statin -Obtain MRI brain and re-evaluate if she has had an acutal neurological insult c/w CVA vs TIA/Migraine -If MRI is normal then consider tx for complicated migraine -She is claustrophobic and may require Atarax or Xanax to assist w/ MRI -Monitor BP w/ goal <140/90 (2) Hypertension: Assessment and plan: -Cont w/ Lisinopril 20mg daily -Use prn Hydralazine for BP >140/90 (3) Hyperlipidemia: Assessment and plan: -Obtain LDL -Cont w/ Crestor 20mg daily (4) Diabetes mellitus: Assessment and plan: -Obtain A1c -Cont w/ Metformin 2g daily History of Present Illness History of Present Illness Chief Complaint: Headache Narrative: The patient is a 49 y/o C F w/ PMH HTN and DM2 who comes in w/ symptoms of headaches. She initially had symptoms on Tuesday at 5pm. She experienced visual scotomas on the right side which lasted for a few minutes. After that she did experience an episode of expressive aphasia for a few minutes after which she began to have an excruciating left sided headache that lasted for 3 hours but did improve with NSAIDs. During the episode w/ her headache she did not have any other neurological symptoms. Earlier tonight at mid-night when she was watching TV. She began to experience right sided visual changes and then once again experienced aphasia. These symptoms lasted for a few minutes which resolved within a few minutes. She then began to experience a left sided headache which has improved but continues to persist. Currently she does not have any active visual changes, expressive aphasia, facial droops, strength or balance deficits. Review of Systems Constitutional Constitutional: Denies chills, Denies fatigue, Denies fever(s), Reports headache(s), Reports night sweats (post-menopausal) and Denies weight loss ENT Ears, Nose, Mouth, and Throat: Denies vertigo, Denies dizziness, Reports headache(s), Denies disequilibrium and Denies sore throat Cardiovascular Cardiovascular: Denies chest pain, Denies rapid heart rate, Denies lightheadedness and Denies dyspnea Respiratory Respiratory: Denies cough, Denies dyspnea and Denies wheezing Gastrointestinal Gastrointestinal: Denies melena, Denies diarrhea, Denies nausea and Denies vomiting Musculoskeletal Musculoskeletal: Denies abnormal gait, Denies numbness and Denies tingling Neurologic Neurologic: Denies abnormal movements, Denies abnormal speech, Denies abnormal gait, Denies vertigo, Denies dizziness, Reports headache(s), Denies numbness, Denies tingling, Denies paresthesias and Denies disequilibrium Endocrine Endocrine: Denies fatigue Allergic/Immunologic Allergic/Immunologic: Denies wheezing PFSH All Active Problems (Updated 10/07/24 @ 03:37 by Tone Dyer MD) Hypomagnesemia (Acute) Throbbing headache (Acute) Expressive aphasia (Acute) Visual disturbance (Acute) Loosening of prosthesis of right knee joint (Acute) Painful total knee replacement, right (Acute) Pain of right heel (Acute) Right Achilles tendinitis (Acute) Pes anserinus bursitis of right knee (Acute) Left lateral epicondylitis (Acute) Left carpal tunnel syndrome (Acute 08/09/16) Left wrist tendinitis (Acute 03/09/17) Medical History Depression Hyperlipidemia Hypertension Diabetes mellitus Surgical History Arthrofibrosis of total knee arthroplasty RIGHT S/P arthroscopic debridement and manipulation: 07/30/2020 S/P repeate arthroscopic debridement and manipulation: 07/26/2023 History of revision of total replacement of right knee joint (05/05/22) Tibial component Hx of carpal tunnel repair Status post total right knee replacement (02/20/20) De Quervain's tenosynovitis, left (03/09/17) Status post Dequerveins release performed on 05/01/2018 Social History Smoking/Tobacco Use Status: Current every day Tobacco Type: cigarettes Years smoked: 32 Smoking risk assessment performed?: Yes Alcohol Intake: current Alcohol Intake frequency: holidays/special occasions only Alcohol type: other Drug use: Never Substance use type: does not use Housing: apartment Current gender identity: female Do you feel safe at home: Yes Do you feel safe in your relationship?: Yes Meds Allergies and Home Medications Allergies Allergy/AdvReac Type Severity Reaction Status Date / Time No Known Allergies Allergy Verified 10/07/24 01:05 Home Medications ?Medication ?Instructions ?Recorded ?Confirmed ?Type citalopram 20 mg tablet (Celexa) 20 mg PO HS 02/08/20 10/07/24 History ibuprofen 600 mg tablet 600 mg PO TID PRN pain #60 tabs 07/26/23 10/07/24 Rx rosuvastatin 20 mg tablet 20 mg PO DAILY 09/19/23 10/07/24 History lisinopril 10 mg tablet 20 mg PO DAILY 08/23/24 10/07/24 History metformin 500 mg tablet,extended 2,000 mg PO DAILY 08/23/24 10/07/24 History release 24hr (osmotic) [id number] PO 10/07/24 History Exam Const General: cooperative, healthy appearing and comfortable [facility] Head: normal to inspection Ears: hearing grossly normal bilaterally General nose exam: external nose normal Mouth: oral mucosae normal Eyes General: appearance normal, both eyes and all related structures Alignment and Position: alignment normal Conjunctivae: conjunctivae normal EOM: EOM intact bilaterally Neck Neck: normal visual inspection, full ROM and no meningeal signs Chest Chest: normal inspection of the chest Resp Effort & Inspection: normal respiratory effort Auscultation: clear to auscultation bilaterally Cardio Rate: regular rate Rhythm: regular rhythm Heart Sounds: S1 normal and S2 normal GI Inspection: normal to inspection Palpation: soft Percussion: normal to percussion Auscultation: normal bowel sounds Skin General skin exam: no rashes or lesions noted Neuro Cranial Nerves: CN's II-XI intact bilaterally Motor: strength 5/5 throughout Coordination: [id number] test normal Extrem General: normal to inspection and full ROM Results Imaging Imaging Studies: CT Head: 1. No large vessel occlusion. 2. Bilateral moderate P2 segment stenosis. 3. Retention cysts in the bilateral maxillary sinuses. 4. Otherwise unremarkable CT head. Labs 10/07/24 00:58 10/07/24 00:58 Labs: Laboratory Results - last 24 hr 10/07/24 10/07/24 00:58 01:21 WBC 8.41 RBC 4.99 Hgb 14.3 Hct 43.3 MCV 87 MCH 28.7 MCHC 33.0 RDW 13.0 Plt Count 281 MPV 10.9 Immature Gran % 0.2 Neutrophils % 56.7 Lymphocytes % 34.8 Monocytes % 5.8 Eosinophils % 2.1 Basophils % 0.4 Nucleated RBC % 0.0 Absolute Neutrophils 4.76 Absolute Lymphocytes 2.93 Absolute Monocytes 0.49 Absolute Eosinophils 0.18 Absolute Basophils 0.03 Sodium 138 Potassium 3.6 Chloride 101 Carbon Dioxide 28.3 Anion Gap 8.7 BUN 10 Creatinine 0.7 Est GFR (CKD-EPI 2020) 104.65 Glucose 204 H Calcium 9.7 Magnesium 1.4 L Total Bilirubin 0.4 AST 17 ALT 23 Alkaline Phosphatase 84 Total Protein 7.6 Albumin 3.8 Urine Color Yellow Urine Clarity Clear Urine pH 6.0 Ur Specific [place] 1.025 Urine Protein Negative Urine Ketones Negative Urine Blood Trace-intact H Urine Nitrite Negative Urine Bilirubin Negative Urine Urobilinogen 0.2 Ur Leukocyte Esterase Negative Urine RBC 3-5 H Urine WBC Negative Ur Epithelial Cells Rare Urine Crystals Negative Urine Bacteria Rare Urine Casts Negative Urine Mucus Trace Ur Culture Indicated? No Urine Glucose Negative Last Vital Signs Temp 36.7 C 10/07/24 00:46 Pulse 81 10/07/24 04:40 Resp 18 10/07/24 00:46 BP 148/79 H 10/07/24 04:31 Pulse Ox 97 10/07/24 04:40 Time Spent Time spent with Patient: <40 minutes Time was spent: preparing to see the patient(eg.review tests), ordering medications,tests, procedures, indepentently interpreting results and counseling the patient
--- NOTE | 2024-10-07 06:15 | W.PC.ACHO ---
Registration Status: Primary Language: Preferred Language: ED Information & Data Chief Complaint GenMedical 10/07/24 00:46 Chief Complaint GenMedical 10/07/24 00:43 Triage Note PT states that her BG is 334 10/07/24 00:43 . PT states that she had an episode of AMS. PT could not put her words together. Medical / Surgical History (Last Reviewed 10/07/24 @ 00:44 by Tone Dyer MD) Depression Hyperlipidemia Hypertension Diabetes mellitus (Last Reviewed 10/07/24 @ 00:44 by Tone Dyer MD) Arthrofibrosis of total knee arthroplasty History of revision of total replacement of right knee joint (05/05/22) Hx of carpal tunnel repair Status post total right knee replacement (02/20/20) De Quervain's tenosynovitis, left (03/09/17) Most Recent Vital Signs Temperature 36.7 C 10/07/24 00:46 Temperature Source Oral 10/07/24 00:46 Pulse 75 10/07/24 05:32 Respiratory Rate 18 10/07/24 00:46 Respiratory Effort Normal 10/07/24 00:46 Blood Pressure 148/90 H 10/07/24 05:30 Blood Pressure Mean 106 10/07/24 05:30 Pulse Oximetry 95 10/07/24 05:32 Oxygen Delivery Method Room Air 10/07/24 00:43 Oxygen Flow Rate 0 10/07/24 00:43 Pain Level 7 10/07/24 00:43 Allergies No Known Allergies Allergy (Verified 10/07/24 01:05) Active Medications Generic Name Dose Route Start Last Admin Trade Name Freq PRN Reason Stop Dose Admin Iohexol 100 ml 10/07/24 01:30 10/07/24 01:26 Omnipaque 350 Mg/Ml 100 Ml Btl IJ 11/06/24 23:59 70 ml DIRECTED SUSANA Administration Sodium Chloride 50 ml 10/07/24 01:30 10/07/24 01:25 Normal Saline - Diluent 50 Ml Vial IJ 50 ml .FOR DI USE SUSANA Administration IV IV Catheter Type [Right Saline Lock Antecubital] IV Catheter Gauge [Right 18 Antecubital] Diet Orders Category Date Time Status Diabetes Consistent CHO [DIET] Nutrition 10/07/24 Breakfast Active Diagnostics 10/07/24 10/07/24 Range/Units 01:21 00:58 WBC 8.41 (4.4-10.8) 10^3/uL RBC 4.99 (3.93-5.22) 10^6/uL Hgb 14.3 (11.2-15.7) g/dL Hct 43.3 (36.0-46.0) % MCV 87 (80-95) fL MCH 28.7 (27.0-33.0) pg MCHC 33.0 (32.0-36.0) % RDW 13.0 (11.7-14.6) % Plt Count 281 (130-400) 10^3/uL MPV 10.9 (8.0-11.0) fL Immature Gran % 0.2 % Neutrophils % 56.7 % Lymphocytes % 34.8 % Monocytes % 5.8 % Eosinophils % 2.1 % Basophils % 0.4 % Nucleated RBC % 0.0 (0.0-0.3) % Absolute Neutrophils 4.76 (1.2-6.7) 10^3/uL Absolute Lymphocytes 2.93 (1.2-3.4) 10^3/uL Absolute Monocytes 0.49 (0.1-0.8) 10^3/uL Absolute Eosinophils 0.18 (0.0-0.7) 10^3/uL Absolute Basophils 0.03 (0.0-0.2) 10^3/uL Sodium 138 (136-145) mmol/L Potassium 3.6 (3.5-5.1) mmol/L Chloride 101 (98-107) mmol/L Carbon Dioxide 28.3 (21.0-32.0) mmol/L Anion Gap 8.7 (3-11) mmol/L BUN 10 (7-18) mg/dL Creatinine 0.7 (0.55-1.02) mg/dL Est GFR (CKD-EPI 2020) 104.65 (mL/min/1.73m2) Glucose 204 H (74-106) mg/dL Hemoglobin A1c Pending Calcium 9.7 (8.5-10.1) mg/dL Magnesium 1.4 L (1.8-2.4) mg/dL Total Bilirubin 0.4 (0.2-1.0) mg/dL AST 17 (15-37) U/L ALT 23 (14-59) U/L Alkaline Phosphatase 84 (46-116) U/L Total Protein 7.6 (6.4-8.2) g/dL Albumin 3.8 (3.4-5.0) g/dL Triglycerides Pending Total Cholesterol Pending LDL Cholesterol, Calc Pending HDL Cholesterol Pending Urine Color Yellow (Yellow) Urine Clarity Clear (Clear) Urine pH 6.0 (5-8) Ur Specific [place] 1.025 (1.005-1.025) Urine Protein Negative (Neg-Trace) mg/dL Urine Ketones Negative (Negative) mg/dL Urine Blood Trace-intact H (Negative) Urine Nitrite Negative (Negative) Urine Bilirubin Negative (Negative) Urine Urobilinogen 0.2 (Up to 0.2) mg/dL Ur Leukocyte Esterase Negative (Negative) Urine RBC 3-5 H (0-2) HPF Urine WBC Negative (0-5) HPF Ur Epithelial Cells Rare (Negative) HPF Urine Crystals Negative (Negative) HPF Urine Bacteria Rare (Negative) HPF Urine Casts Negative (Negative) LPF Urine Mucus Trace (Negative) Ur Culture Indicated? No Urine Glucose Negative (Negative) mg/dL [id number] Documentation Fingerstick Glucose Start: 10/07/24 00:48 Freq: Status: Complete Protocol: Activity Type Activity Date Activity User E-sign Co-sign Detail Recorded Client Recorded Date Recorded By Document 10/07/24 00:46 BKG DAEMON(5) [id number] 10/07/24 00:48 BKG DAEMON(6) Fingerstick Glucose Start: 10/07/24 00:54 Freq: .Stat Status: Active Protocol: Activity Type Activity Date Activity User E-sign Co-sign Detail Recorded Client Recorded Date Recorded By Document 10/07/24 00:59 MG [id number] 10/07/24 00:59 MG Intake and Output - 24 Hour Total 10/07/24 00:40 thru 10/07/24 03:55 Intake Total 50 Balance 50 Weight 103.8 kg Intake: IV 50 Falls Risk Assessment History of Falls No History 10/07/24 00:46 Contributing Factors No Factors 10/07/24 00:46 Ambulatory Aids Independent 10/07/24 00:46 Tubes/Lines None 10/07/24 00:46 Gait Evaluation No gait disturbance 10/07/24 00:46 Cognition No cognitive impairment 10/07/24 00:46 Fall Total Score 0 10/07/24 00:46 Level of Risk Standard/Low Risk 10/07/24 00:46 Problems (Last Reviewed 10/07/24 @ 00:44 by Tone Dyer MD) Expressive aphasia (Acute) Notes 10/07/24 02:27 Nursing Notes by Evelio Devi 15 min ago. telenuro on screen Nursing Note: Initialized on 10/07/24 02:27 - END OF NOTE v v v v v v v v v Sending and/or Receiving Nurses: Please use comment section below to note any information pertinent to the patient hand-off not included above. Information / Comments: A x O 4, no neurologic deficit, independent, not in respiratory distress Report received from: @ 611 AM evelio VITAL
[2024-10-07 06:18] LABS: Calculated LDL 66 mg/dL (<100); Cholesterol 153 mg/dL (<200); HDL Cholesterol 42 mg/dL (>or=50); Triglyceride 227 mg/dL (<150)
[2024-10-07 06:22] LABS: Hemoglobin A1C 9.5 % (<5.7)
--- NOTE | 2024-10-07 08:17 | PDOC.CMIN ---
Date of service: 10/07/24 Time of Service: 08:17 Care Management Initial Assmt Initial Assessment Reason for Hospitalization: TIA, expressive aphagia Functional Status/Living Situation Town of Residence: [facility] Resides with: Spouse ( Tone) Medications Medication Management: No Issues/Barriers identified Advance Directives Advance Directives: Do you have an Advance Directive: N 10/23/13 14:37 AD On File at [facility]: N 09/19/13 14:55 Date Asked 08/30/24 10/07/24 00:41 AD Date Reviewed COLST On File at [facility] COLST Date Scanned Code Status Resuscitation Status Full Code Insurance Coverage/Financial Issues Insurance: Medicaid Care Team Visit Care Team Role Provider Type Pallavi Hercules NP NURSE PRACTITIONER Sandra Greenwood Primary Care Provider ADV PRACTICE REGISTERED NURSE Tone Dyer MD Emergency Provider [facility] STAFF PHYSICIAN Nayan Teague MD Admit Provider [facility] STAFF PHYSICIAN Attending Provider Discharge Potential Discharge Needs: PCP F/U Appt Anticipated Barriers to Discharge: None Identified Patient/Family Education Needs: Review discharge instructions, discuss Ask Me Three Transportation: Private vehicle Plan: ER has discussed with neurology, Dr. Haley and was admitted for telemetry monitoring and MRI Tuesday. Anticipate, Stephanie will discharge home via private vehicle when medically ready for discharge. Follow up appointment with her PCP and discharge plan of care will be needed prior to discharge. CM will continue to follow. Social Determinants of Health Screening Social Determinants of health last assessed in clinic: 10/07/24 Will the Patient Participate in the Screening?: Unable to obtain Do you worry about having a steady place to live?: no Problems where you live: no known problems In the past 12 months, have you had to go without electric, gas, oil or water in your home?: no Has lack of transportation kept you from medical appointments or from doing things needed for daily living?: no Has anyone in your life made you feel unsafe or unsupported?: no How hard is it for you to pay for the very basics like food, housing, medical care, and heating? Would you say it is:: Not hard at all Do you want help finding or keeping work or a job?: I do not need or want help If for any reason you need help with day-to-day activities such as bathing, preparing meals, shopping, managing finances, etc., do you get the help you need?: I don?t need any help How often do you feel lonely or isolated from those around you?: Never Do you speak a language other than Telugu at home?: No Does the patient want assistance with any of the above?: No PFSH All Active Problems (Updated 10/07/24 @ 06:23 by DUNCAN MARCOS) Hypomagnesemia (Acute) Throbbing headache (Acute) Expressive aphasia (Acute) Visual disturbance (Acute) Loosening of prosthesis of right knee joint (Acute) Painful total knee replacement, right (Acute) Pain of right heel (Acute) Right Achilles tendinitis (Acute) Pes anserinus bursitis of right knee (Acute) Left lateral epicondylitis (Acute) Left carpal tunnel syndrome (Acute 08/09/16) Left wrist tendinitis (Acute 03/09/17) Medical History Depression Hyperlipidemia Hypertension Diabetes mellitus Surgical History Arthrofibrosis of total knee arthroplasty RIGHT S/P arthroscopic debridement and manipulation: 07/30/2020 S/P repeate arthroscopic debridement and manipulation: 07/26/2023 History of revision of total replacement of right knee joint (05/05/22) Tibial component Hx of carpal tunnel repair Status post total right knee replacement (02/20/20) De Quervain's tenosynovitis, left (03/09/17) Status post Dequerveins release performed on 05/01/2018 Social History Smoking/Tobacco Use Status: Current every day Tobacco Type: cigarettes Years smoked: 32 Smoking risk assessment performed?: Yes Alcohol Intake: current Alcohol Intake frequency: holidays/special occasions only Alcohol type: other Drug use: Never Substance use type: does not use Housing: apartment Current gender identity: female Do you feel safe at home: Yes Do you feel safe in your relationship?: Yes
[2024-10-07] MEDS: Normal Saline Flush 10 ML SYR IVP ×3 (09:05→19:46)
[2024-10-07] MEDS: Aspirin 81 MG CHEW PO (09:06)
[2024-10-07] MEDS: Lisinopril 10 MG TAB 20 MG PO (09:06)
[2024-10-07] MEDS: Rosuvastatin 20 MG TAB PO (09:06)
[2024-10-07] MEDS: Enoxaparin 40 MG/0.4 ML SYR SC (09:06)
[2024-10-07] MEDS: Clopidogrel 75 MG TAB PO (09:06)
--- NOTE | 2024-10-07 14:36 | PGE_ITS ---
Date of Service Date of service: 10/07/24 Time of Service: 14:36 Assessment and Plan Assessment and plan (1) Expressive aphasia: Status: Acute Assessment and plan: resolved teleneuro consult_ Recommend starting aspirin with loading dose which will be given here followed by 81 mg a day, clopidogrel with loading dose here followed by 75 mg a day and high-dose atorvastatin again first dose being given here. -Started on ASA/Plavix -Monitor BP -Start Statin -Obtain MRI brain and re-evaluate if she has had an acutal neurological insult c/w CVA vs TIA/Migraine -If MRI is normal then consider tx for complicated migraine -She is claustrophobic and may require Atarax or Xanax to assist w/ MRI -Monitor BP w/ goal <140/90 echocardiogram (2) Hypertension: Assessment and plan: -Cont w/ Lisinopril 20mg daily -Use prn Hydralazine for BP >140/90 (3) Hyperlipidemia: Assessment and plan: -Obtain LDL -Cont w/ Crestor 20mg daily (4) Diabetes mellitus: Assessment and plan: poorly controlled with 9.5 A1c -hold metformin 48 hours, received IV contrast. diabetic diet with sliding scale coverage diabetic education discussed with Dr Farias Subjective Subjective Patient reports: no new complaints, tolerating liquids well, tolerating a regular diet and afebrile Interval history since last seen: no recurrence of symptoms overnight. remains in NSR with no ectopy or dysrhymia. no visual disturbances, no weakness, no headache Exam Const General: cooperative, comfortable and no acute distress Nutritional Appearance: average body habitus Orientation: alert, awake and oriented x3 [facility] Head: normal to inspection, normocephalic and atraumatic Face and sinus: normal facial exam Mouth: oral mucosae normal Teeth and gingiva: poor dentition Eyes General: appearance normal, both eyes and all related structures Sclera: sclerae normal EOM: EOM intact bilaterally Neck Neck: normal visual inspection and full ROM Chest Chest: normal inspection of the chest Resp Effort & Inspection: normal respiratory effort Auscultation: clear to auscultation bilaterally Cardio Rate: regular rate Rhythm: regular rhythm Heart Sounds: no murmurs GI Inspection: normal to inspection Palpation: soft Skin General skin exam: no rashes or lesions noted Neuro General: patient alert, patient awake and patient oriented x3 Cognition: normal cognition Speech: speech normal Motor: muscle tone normal throughout and strength 5/5 throughout Coordination: [id number]-[id number] test normal Extrem General: normal to inspection, full ROM and no pedal edema Psych Appearance: grossly normal Mental Status: mental status grossly normal Speech and Movement: speech and movement normal Mood: congruent mood Affect: normal affect Objective Last Vital Signs Temp 36.7 C 10/07/24 12:59 Pulse 68 10/07/24 12:59 Resp 18 10/07/24 07:18 BP 124/73 10/07/24 12:59 Pulse Ox 97 10/07/24 12:59 Laboratory Results - last 24 hr 10/07/24 10/07/24 00:58 01:21 WBC 8.41 RBC 4.99 Hgb 14.3 Hct 43.3 MCV 87 MCH 28.7 MCHC 33.0 RDW 13.0 Plt Count 281 MPV 10.9 Immature Gran % 0.2 Neutrophils % 56.7 Lymphocytes % 34.8 Monocytes % 5.8 Eosinophils % 2.1 Basophils % 0.4 Nucleated RBC % 0.0 Absolute Neutrophils 4.76 Absolute Lymphocytes 2.93 Absolute Monocytes 0.49 Absolute Eosinophils 0.18 Absolute Basophils 0.03 Sodium 138 Potassium 3.6 Chloride 101 Carbon Dioxide 28.3 Anion Gap 8.7 BUN 10 Creatinine 0.7 Est GFR (CKD-EPI 2020) 104.65 Glucose 204 H Hemoglobin A1c 9.5 H Calcium 9.7 Magnesium 1.4 L Total Bilirubin 0.4 AST 17 ALT 23 Alkaline Phosphatase 84 Total Protein 7.6 Albumin 3.8 Triglycerides 227 H Total Cholesterol 153 LDL Cholesterol, Calc 66 HDL Cholesterol 42 Urine Color Yellow Urine Clarity Clear Urine pH 6.0 Ur Specific [place] 1.025 Urine Protein Negative Urine Ketones Negative Urine Blood Trace-intact H Urine Nitrite Negative Urine Bilirubin Negative Urine Urobilinogen 0.2 Ur Leukocyte Esterase Negative Urine RBC 3-5 H Urine WBC Negative Ur Epithelial Cells Rare Urine Crystals Negative Urine Bacteria Rare Urine Casts Negative Urine Mucus Trace Ur Culture Indicated? No Urine Glucose Negative Time Spent with Patient Time Spent with Patient: 35-49 minutes Time was spent: preparing to see the patient(eg.review tests), obtaining and/or reviewing separately otained hiistory, ordering medications,tests, procedures, indepentently interpreting results and counseling the patient
[2024-10-07] MEDS: Insulin Aspart 300 UNITS/3 ML PEN SC (16:55)
[2024-10-07] MEDS: Citalopram 20 MG TAB PO (19:46)
--- NOTE | 2024-10-08 | DI.MRI_ITS ---
Exam(s) MR BRAIN WO EXAM: MR BRAIN WO CLINICAL HISTORY: TIA/CVA w/ expressive aphasia/visual disturbance TECHNIQUE: Multiplanar multisequence MRI of the brain was performed. COMPARISON: No exams were available for comparison FINDINGS: CEREBRAL PARENCHYMA: There is no evidence of intracranial hemorrhage, mass effect, or shift of midline structures. There are no extra-axial fluid collections. Ventricles are not enlarged or shifted. There is no significant focal signal abnormality in the cerebellar hemispheres nor within the [place], m idbrain, and thalami. There is a small area of FLAIR bright signal abnormality in the posterior aspect of the posterior sam b of the right internal capsule, exhibiting increased signal on FLAIR imaging, hypointensity on T1 an d not exhibiting signs of restricted diffusion on DWI imaging. PITUITARY GLAND: No mass nor parasellar abnormality. No obvious abnormality in the cavernous sinuses. FLOW VOIDS: The expected flow void are noted. No evidence of obvious aneurysm nor obvious vascular ma lformation. PARANASAL SINUSES: No mucosal thickening is noted bilateral maxillary sinuses. No associated fluid l evel. Remainder of the paranasal sinuses appear clear. ORBITS: No obvious findings. IMPRESSION: No significant acute intracranial findings on this noninfused MRI scan of the brain. Small non acute nonhemorrhagic lacunar infarct in the posterior limb of the right internal capsule. DATA REPOSITORY:
[2024-10-08 07:03] VITALS: BP 129/85; PULSE 72; RESP 20; TEMP 36.5; O2SAT 96
[2024-10-08] MEDS: Normal Saline Flush 10 ML SYR IVP (08:44)
[2024-10-08] MEDS: Enoxaparin 40 MG/0.4 ML SYR SC (08:44)
[2024-10-08] MEDS: Clopidogrel 75 MG TAB PO (08:44)
[2024-10-08] MEDS: Rosuvastatin 20 MG TAB PO (08:44)
[2024-10-08] MEDS: Lisinopril 20 MG TAB PO (08:45)
[2024-10-08] MEDS: Aspirin 81 MG CHEW PO (08:46)
[2024-10-08] MEDS: Insulin Aspart 300 UNITS/3 ML PEN SC ×2 (08:46→12:11)
[2024-10-08] MEDS: LORazepam 20 MG/10 ML VIAL IVP (11:01)
[2024-10-08 11:05] VITALS: BP 133/77; PULSE 63; RESP 20; TEMP 36.8; O2SAT 94
--- NOTE | 2024-10-08 13:34 | PDOC.CMDIS ---
Date of service: 10/08/24 Time of Service: 13:35 LACE Index Scoring Tool Questions: Length of Stay (in days): 1 Was the patient admitted via the E.D.?: Yes E.D. Visits: 1 Answers: Total Score: 5 Risk of Readmission: Low Risk Care Management Discharge Plan Reason for Hospitalization: TIA/CVA vs Complicated Migraine Discharge Plan: Stephanie will be discharged home today. She will follow up with her community provider, neurology and continue per her discharge plan of care. She will transport via private vehicle by her . Patient/Family Education Needs: Review of discharge instructions, activity, limitations and discharge plan of care. Discuss Ask Me Three. SDOH Health Related Social Needs: No Data to Display
--- NOTE | 2024-10-08 13:42 | DSE_ITS ---
Date of service: 10/08/24 Time of Service: 13:42 DS: Diagnosis Discharge Diagnosis (1) Expressive aphasia: Status: Resolved Discharge Plan Disposition Patient Disposition: Home Condition: Stable Discharge Details Reason For Visit: TIA/CVA vs Complicated Migraine Admit Date/Time: 10/07/24 05:33 Admit Provider: Nayan Teague Attending Provider: Nayan Teague Primary Care Provider: Sandra Greenwood Hospital Course Hospital Course: Reason for Admission: Evaluation of acute episodes of expressive aphasia, visual disturbances, and severe headache, with concern for possible TIA vs complicated migraine. 49-year-old female with a history of hypertension, diabetes mellitus type 2, and hyperlipidemia presented to the [facility] ED on 10/07/2024 with two episodes of transient right-sided visual scotomas followed by expressive aphasia and severe left-sided headaches. Each episode resolved spontaneously within minutes. No associated weakness, numbness, or gait disturbances. The most recent episode occurred the night of admission. Of note the patient has been on Chantix for two weeks. Hospital Course: * Patient underwent a CT head, which showed no large vessel occlusion per ER radiology read. * Neurology (Dr. Haley) noted possible hypodense area in the insular cortex on CT, concerning for subacute stroke. * Migraine considered a diagnosis of exclusion. * Telemetry monitoring initiated. * Started on dual antiplatelet therapy and high-dose statin. * MRI brain * Echo * Blood pressure and glucose managed during hospitalization. Assessment and Plan: * Expressive Aphasia / Visual Disturbance / Headache (possible TIA vs CVA vs complicated migraine): * Admitted for observation and further evaluation. * Initiated: * Aspirin loading dose, then 81 mg daily. * Clopidogrel loading dose, then 75 mg daily. * Rosuvastatin high dose (continued from home meds) * Telemetry monitoring (NSR no ectopy). * Hypertension: * Continue Lisinopril 20 mg daily. (BP stable in patient 130/70; no PRNs) * Hydralazine PRN for SBP >140. * Hyperlipidemia: * Continue Rosuvastatin 20 mg daily. * LDL 66. * Diabetes Mellitus Type 2: * Continue Metformin 2000 mg/day. * Glucose 200-300 mg/dl in hospital * A1c 9.5 Pertinent Labs/Imaging: * CT Head: No acute hemorrhage or large vessel occlusion per ER; possible insular hypodensity per neurology. * Labs: Hypomagnesemia noted; electrolytes corrected. * MRI brain as read by the radiologist: No significant acute intracranial findings on this noninfused MRI scan of the brain. Small non acute nonhemorrhagic lacunar infarct in the posterior limb of the right internal capsule. Echo pending (performed, not read) Discharge Medications: * Aspirin 81 mg daily * Clopidogrel 75 mg daily * Atorvastatin (high dose) * Lisinopril 20 mg daily * Hydralazine PRN * Rosuvastatin 20 mg daily * Metformin 2000 mg daily Follow-Up: * Neurology follow-up * Primary care for chronic disease management and review of A1c/LDL results. Disposition: Stable for discharge with close outpatient follow-up. Home Meds and New Rx's Prescriptions: New clopidogrel 75 mg Tablet 75 mg PO DAILY Qty: 30 0RF aspirin [Children's Aspirin] 81 mg Tablet,Chewable 81 mg PO DAILY Qty: 0 0RF Continued citalopram [Celexa] 20 mg tablet 20 mg PO HS rosuvastatin 20 mg tablet 20 mg PO DAILY [id number] [B-Complex Plus B-12] PO lisinopril 20 mg tablet 20 mg PO DAILY Patient Comments: TAKE ONE TABLET BY MOUTH EVERY DAY metformin 500 mg tablet extended release 24 hr 2,000 mg PO DAILY Patient Comments: TAKE FOUR TABLETS BY MOUTH EVERY DAY Discontinued varenicline tartrate 1 mg tablet See Rx Instructions PO ONCE Rx Instructions: Per package taper or as written by PCP orally once; ibuprofen 600 mg tablet 600 mg PO TID PRN (Reason: pain) Qty: 60 0RF Discharge Instructions Instructions: Aphasia (DC) Additional Instructions: We will call you with the results of your echocardiogram. STOP SMOKING NOW Medication Instructions Stop Chantix Medication: Chantix (varenicline) Reason for Discontinuation: The overall stroke risk from Chantix is low, but caution is warranted in high-risk individuals. 1. Aspirin (Low-Dose, usually 81 mg) * Purpose: Prevents blood clots by thinning the blood * Dose: Take 81 mg by mouth once daily, preferably at the same time each day * With food?: Yes, take with food to reduce stomach upset * Important: * Do not take with other NSAIDs (like ibuprofen) * Notify your doctor if you have stomach pain, black/tarry stools, or unusual bruising 2. Plavix (Clopidogrel) * Purpose: Prevents blood clots, especially after stroke, TIA, heart attack, or stent placement * Dose: Take 75 mg by mouth once daily * With food?: Can be taken with or without food * Important: * Take exactly as prescribed ? do not skip doses * Inform your doctor/dentist you're taking Plavix before any procedure * Report signs of bleeding (gums, nosebleeds, blood in stool/urine) 3. Crestor (Rosuvastatin) * Purpose: Lowers cholesterol and reduces risk of heart disease and stroke * Dose: Conitnue 20 mg by mouth once daily, usually in the evening * With food?: Can be taken with or without food * Important: * Avoid grapefruit or grapefruit juice * Report any muscle pain, weakness, or dark urine (could be signs of rare side effect) * Liver function tests may be monitored regularly General Reminders * Take medications exactly as prescribed * Do not stop any of these medications without your provider's approval * Keep all follow-up appointments and lab checks as advised * Store medications at room temperature, away from moisture and heat * Keep a list of medications with you at all times Go to the ER or call 911 if you experience any of the following: * Sudden worsening or return of aphasia (inability to communicate) * Facial drooping, weakness in one side of the body * Difficulty swallowing, walking, or balancing * New or worsening headache * Confusion or changes in mental status * Seizures Additional Recommendations * Rest and avoid stressful activities until follow-up * Avoid alcohol or sedating medications unless approved * Follow up with PCP * Follow up with neurology Stand Alone Forms: Nursing Discharge Form Referrals: Sandra Greenwood [Primary Care Provider] - 10/23/24 11:35 am (Two weeks post-discharge following inpatient hospitalization for evaluation of symptoms concerning for cerebrovascular accident. The patient was started on aspirin and clopidogrel at that time. A neurology referral was completed. Chantix was discontinued due to remote research suggesting a small potential risk for brain or cardiac infarction. The patient was strongly advised to cease smoking for stroke prevention and overall cardiovascular health. MRI Brain Findings: Revealed a small, non-acute, non-hemorrhagic lacunar infarct located in the posterior limb of the right internal capsule. Of note: Glucose 200-300 mg/dl in hospital? A1c 9.5) Sylvia Us MD [ [facility] STAFF PHYSICIAN] - (First available - new patient referral; s/s CVA with MRI Small non acute nonhemorrhagic lacunar infarct in the posterior limb of the right internal capsule. Asymptomatic now) Activity:: Activity as Tolerated Equipment/Supplies:: No Equipment Needed Diet:: Heart Healthy/Diabetic Discharge Orders Discharge Orders: Discharge Order (Routine); Ordered 10/08/24 Ordered By: Sonia Richard Discharge Data Discharge Date/Time-TO BE ENTERED AT DEPARTURE: 10/08/24 14:46 DS: Summary Time Spent with Patient providing and/or coordinating discharge services: Greater than 30 minutes Status at Discharge Functional status at discharge: independent ambulation Overall status at discharge: patient is back to baseline Mental Status: mental status grossly normal Speech and Movement: speech and movement normal Mood: congruent mood Affect: normal affect Quality:SDOH Health Related Social Needs: No Data to Display Exam Const General: cooperative, healthy appearing and comfortable HENPR Head: normal to inspection Ears: hearing grossly normal bilaterally General nose exam: external nose normal Mouth: oral mucosae normal Eyes General: appearance normal, both eyes and all related structures Alignment and Position: alignment normal Conjunctivae: conjunctivae normal EOM: EOM intact bilaterally Neck Neck: normal visual inspection, full ROM and no meningeal signs Chest Chest: normal inspection of the chest Resp Effort & Inspection: normal respiratory effort Auscultation: clear to auscultation bilaterally Cardio Rate: regular rate Rhythm: regular rhythm Heart Sounds: S1 normal and S2 normal GI Inspection: normal to inspection Palpation: soft Percussion: normal to percussion Auscultation: normal bowel sounds Skin General skin exam: no rashes or lesions noted Neuro Cranial Nerves: CN's II-XI intact bilaterally Motor: strength 5/5 throughout Coordination: [id number] test normal Extrem General: normal to inspection and full ROM Psych Mental Status: mental status grossly normal Speech and Movement: speech and movement normal Mood: congruent mood Affect: normal affect DS: Data Vitals/I&O Vitals and I&O: Vital Signs Temperature 36.8 C 10/08/24 11:05 Temperature Source Temporal Artery Scan 10/08/24 11:05 Pulse 63 10/08/24 11:05 Pulse Rhythm Regular 10/07/24 06:27 Respiratory Rate 20 10/08/24 11:05 Respiratory Effort Normal, Non-Labored 10/07/24 06:27 Respiratory Depth Normal 10/07/24 06:27 Respiratory Pattern Normal 10/07/24 06:27 Blood Pressure 133/77 10/08/24 11:05 Blood Pressure Mean 95 10/08/24 11:05 Pulse Oximetry 94 10/08/24 11:05 Oxygen Delivery Method Room Air 10/08/24 11:05 Oxygen Flow Rate 0 10/08/24 11:05 Pain Level 0 10/08/24 11:05 Intake & Output 10/07/24 10/08/24 10/08/24 23:59 11:59 23:59 Intake Total 50 / 100 290 / 290 Balance 50 / 100 290 / 290 Intake: IV 50 / 100 50 / 50 Oral 240 / 240 Other: Urine Color Yellow Urine Appearance Clear Urine Odor None Comment pt reported x2 void Data Completed and Pending Labs on day of discharge: Labs from last 24 hours 10/08/24 : Add-On Test Request Cancelled [facility] All Active Problems (Updated 10/08/24 @ 13:42 by Sonia Richard NP) Hypomagnesemia (Acute) Throbbing headache (Acute) Visual disturbance (Acute) Loosening of prosthesis of right knee joint (Acute) Painful total knee replacement, right (Acute) Pain of right heel (Acute) Right Achilles tendinitis (Acute) Pes anserinus bursitis of right knee (Acute) Left lateral epicondylitis (Acute) Left carpal tunnel syndrome (Acute 08/09/16) Left wrist tendinitis (Acute 03/09/17) Medical History Depression Hyperlipidemia Hypertension Diabetes mellitus Surgical History Arthrofibrosis of total knee arthroplasty RIGHT S/P arthroscopic debridement and manipulation: 07/30/2020 S/P repeate arthroscopic debridement and manipulation: 07/26/2023 History of revision of total replacement of right knee joint (05/05/22) Tibial component Hx of carpal tunnel repair Status post total right knee replacement (02/20/20) De Quervain's tenosynovitis, left (03/09/17) Status post Dequerveins release performed on 05/01/2018 Social History Smoking/Tobacco Use Status: Current every day Tobacco Type: cigarettes Years smoked: 32 Smoking risk assessment performed?: Yes Alcohol Intake: current Alcohol Intake frequency: holidays/special occasions only Alcohol type: other Drug use: Never Substance use type: does not use Housing: apartment Current gender identity: female Do you feel safe at home: Yes Do you feel safe in your relationship?: Yes Time Spent with Patient Time Spent with Patient: 45-69 minutes Time was spent: preparing to see the patient(eg.review tests), ordering medications,tests, procedures, referring, communicating with other health manager primary care, indepentently interpreting results, counseling the patient and care coordination
--- NOTE | 2024-10-08 14:06 | NUR.NOTE ---
patient Axox4 throughout shift, VSS without HTN, no prn hydralazine needed throughout shift, pt reports no neuro deficits similar to original s/s she came to ER for, neuro intact on assessment, MRI with no new acute infarcts (old infarcts noted), pending echo read but no cardiology here today and will be [place] end [place] [facility] Pt going home, will be called with concerning results on echo. PIV removed, all belongings packed up with patient. Pending d/c education/paperwork. Nursing Note:
--- NOTE | 2024-10-08 15:22 | W.NUTRFU ---
Date of service: 10/08/24 Time of Service: 12:50 Nutrition Note NOTE: received consult request regarding diabetes education/mgt. Pt anticipating d/c today - present at visit today - Stephanie sitting up on side of bed after finishing lunch. No concerns about po intake/appetite. Relates that she knows what she should eat to manage glucose but just finds if difficult to avoid a lot of the tempting foods she enjoys (she gives pasta as a big example). We reviewed that managing glucose and healthy eating isn't about 100% compliance - there is wiggle room for enjoyment and splurges/celebration as well. Discussed some main concepts and offered to meet with her in outpatient setting. She took my card and said she would call soon to set something up. She did accept educational handout with overview of balancing healthy plate Time Spent in Nutritional Counseling and Treatment: 10 min
== END 2024-10-08 14:46 | disposition home or self-care (01) ==
LOC: ER 05:41 → MS 06:24
PROVIDERS: Admitting Provider Student in an Organized Health Care Education/Training Program; Emergency Provider Emergency Medicine; PCP Nurse Practitioner Family; Responsible Provider Nurse Practitioner Family; Visit Provider Student in an Organized Health Care Education/Training Program
DX: R47.01 Aphasia (principal); E11.9 Type 2 diabetes mellitus without complications; I10 Essential (primary) hypertension; E78.5 Hyperlipidemia, unspecified; R51.9 Headache, unspecified; Z79.84 Long term (current) use of oral hypoglycemic drugs; H53.451 Other localized visual field defect, right eye; E83.42 Hypomagnesemia; F32.A Depression, unspecified; Z96.651 Presence of right artificial knee joint; F17.210 Nicotine dependence, cigarettes, uncomplicated
CPT/HCPCS: 00123; 36416; 70496; 70498; 80053; 80061; 82962; 93005; 96365; 96366; 96372; 96375; 99285; J1650; 70551; 81003; 81015; 83036; 83735; 85025; 93010; 93306; 99222; 99239; G0378; J1815; J2060; J3475; J3490

== ENCOUNTER 2024-10-15 14:15 | Outpatient (REF) | payer MEDICAID, SELFPAY ==
[2024-10-15 15:31] LABS: Magnesium 1.5 mg/dL (1.8-2.4)
== END 2024-10-15 14:16 | disposition home or self-care (01) ==
LOC: NCHCN 14:15
PROVIDERS: PCP Nurse Practitioner Family; Visit Provider Nurse Practitioner Family
DX: Z86.73 Personal history of transient ischemic attack (TIA), and cerebral infarction without residual deficits (principal); Z09 Encounter for follow-up examination after completed treatment for conditions other than malignant neoplasm
CPT/HCPCS: 83735

== ENCOUNTER 2024-10-18 14:54 | Outpatient (CLI) | payer MEDICAID, SELFPAY | END 2024-10-18 14:55 | disposition home or self-care (01) | LOC: CARDOPNVT 14:54 | PROVIDERS: PCP Nurse Practitioner Family; Visit Provider Nurse Practitioner Family | DX: Z86.73 Personal history of transient ischemic attack (TIA), and cerebral infarction without residual deficits (principal) | CPT/HCPCS: 93246 ==

== ENCOUNTER 2024-11-08 07:34 | Outpatient (CLI) | payer MEDICAID, SELFPAY ==
--- NOTE | 2024-11-08 08:36 | W.CARDEVENT ---
Date of service: 11/08/24 Time of Service: 08:36 Cardiac Event Recorder Referring Provider:: Sandra Greenwood Indications:: Cerebral infarction Cardiac Event Note: This is a cardiac event monitor. Patient was monitored for 13 days and 9 hours. Rhythm throughout was sinus with an average heart rate of 81. Minimum was 47, maximum 136. There were very rare isolated atrial and ventricular ectopic beats. There was one 6 beat run of nonsustained ventricular tachycardia There was no atrial fibrillation, no high-grade AV block, no pauses greater than 3 seconds. No symptoms were reported
== END 2024-11-08 07:35 | disposition home or self-care (01) ==
LOC: CARDOPNVT 07:34
PROVIDERS: PCP Nurse Practitioner Family; Visit Provider Internal Medicine Cardiovascular Disease
DX: I63.9 Cerebral infarction, unspecified (principal); I47.20 Ventricular tachycardia, unspecified
CPT/HCPCS: 93248

== ENCOUNTER 2024-11-09 01:05 | Outpatient (CLI) | payer MEDICAID, SELFPAY ==
[2024-11-09 10:38] LABS: Magnesium 1.7 mg/dL (1.8-2.4)
== END 2024-11-09 01:06 | disposition home or self-care (01) ==
PROVIDERS: PCP Nurse Practitioner Family; Visit Provider Nurse Practitioner Family
DX: E83.42 Hypomagnesemia (principal)
CPT/HCPCS: 36415; 83735

== ENCOUNTER 2024-12-04 07:20 | Outpatient (CLI) | payer MEDICAID, SELFPAY ==
--- NOTE | 2024-12-04 | DI.MAMMO_ITS ---
Exam(s) MAMMO SCREENING EXAM: MAMMO SCREENING CLINICAL HISTORY: Screening, Z12.31 TECHNIQUE: Mammograms were interpreted according to the usual protocol including computer analysis with CAD system, tomosynthesis and C-view imaging. COMPARISON: 2015 through 2022 FINDINGS: The breasts are composed of mainly fatty density , Breast Density category A. No suspicious masses or suspicious microcalcifications are seen. No skin thickening or abnormal axillary lymph nodes are seen. There has been no significant change from prior exams. IMPRESSION: BI-RADS Category 1, Negative mammogram Yearly screening mammography is recommended. Breast Density- Category A - The breast are almost entirely fatty. Breast density Category C or D implies that the patient has dense breast tissue. Dense breast tissue can make it harder to find cancer on a mammogram. Dense breast tissue is also associated with an increased risk of breast cancer. This information about the result of the mammogram report was provided to the patient to raise their awareness. Use this report when you speak with the patient about their risks for breast cancer, which includes their family history. At that time, you may recommend additional screening tests (Ultrasound or MRI) as these tests may add significant information. A negative radiographic report should not delay biopsy if a dominant or clinically suspicious mass is present. Up to ten percent of cancers are not identified on mammography. A negative report may reinforce clinical impression. Adenosis and dense breasts may obscure an underlying neoplasm. False positive reports average 6 to 10%. Patient will receive a letter notifying them of these results.
== END 2024-12-04 07:40 ==
LOC: DI 07:20
PROVIDERS: PCP Nurse Practitioner Family; Visit Provider Nurse Practitioner Family
DX: Z12.31 Encounter for screening mammogram for malignant neoplasm of breast (principal); R92.313 Mammographic fatty tissue density, bilateral breasts
CPT/HCPCS: 77063; 77067

== ENCOUNTER 2024-12-31 03:54 | Outpatient (CLI) | payer MEDICAID, SELFPAY ==
[2024-12-31 10:49] LABS: Magnesium 2.0 mg/dL (1.8-2.4)
== END 2024-12-31 03:55 | disposition home or self-care (01) ==
LOC: LBO 03:54
PROVIDERS: PCP Nurse Practitioner Family; Visit Provider Nurse Practitioner Family
DX: E11.9 Type 2 diabetes mellitus without complications (principal)
CPT/HCPCS: 36415; 83735

== ENCOUNTER 2025-01-07 16:34 | Outpatient (REF) | payer MEDICAID, SELFPAY ==
[2025-01-07 16:28] LABS: Hemoglobin A1C 7.3 % (<5.7)
== END 2025-01-07 16:35 | disposition home or self-care (01) ==
LOC: NCHCN 16:34
PROVIDERS: PCP Nurse Practitioner Family; Visit Provider Nurse Practitioner Family
DX: E11.9 Type 2 diabetes mellitus without complications (principal)
CPT/HCPCS: 83036

== ENCOUNTER 2025-03-15 13:50 | Outpatient (REF) | payer MEDICAID, SELFPAY ==
[2025-03-15 15:39] LABS: HCT 40.2 % (36.0-46.0); HGB 13.5 g/dL (11.2-15.7); MCH 29.1 pg (27.0-33.0); MCHC 33.6 % (32.0-36.0); MCV 87 fL (80-95); MPV 11.1 fL (8.0-11.0); Platelet Count 267 10^3/uL (130-400); RBC 4.64 10^6/uL (3.93-5.22); RDW 13.1 % (11.7-14.6); RDW-SD 41.2 fL; WBC 6.82 10^3/uL (4.4-10.8)
[2025-03-15 15:50] LABS: ALT 18 U/L (14-59); AST 14 U/L (15-37); Albumin 3.7 g/dL (3.4-5.0); Alkaline Phosphatase 60 U/L (46-116); Anion Gap 7.8 mmol/L (3-11); BUN 8 mg/dL (7-18); Bilirubin, Total 0.5 mg/dL (0.2-1.0); CO2 28.2 mmol/L (21.0-32.0); Calcium 9.2 mg/dL (8.5-10.1); Chloride 105 mmol/L (98-107); Estimated GFR 104.00 (mL/min/1.73m2); Glucose 141 mg/dL (74-106); Potassium 4.6 mmol/L (3.5-5.1); Sodium 141 mmol/L (136-145); Total Protein 6.6 g/dL (6.4-8.2)
== END 2025-03-15 13:51 | disposition home or self-care (01) ==
LOC: NCHCN 13:50
PROVIDERS: PCP Nurse Practitioner Family; Visit Provider Nurse Practitioner Family
DX: Z01.818 Encounter for other preprocedural examination (principal)
CPT/HCPCS: 80053; 85027

== ENCOUNTER 2025-04-10 07:00 | Inpatient (IN) | payer MEDICAID, SELFPAY ==
[2025-04-10] VITALS (32 sets, daily range): BP systolic 87–119; BP diastolic 43–67; PULSE 68–90; RESP 16–23; TEMP 36.1–36.6; O2SAT 95–100; BMI 30.1
--- NOTE | 2025-04-10 | DI.RAD_ITS ---
Exam(s) XR KNEE RT 2V AP,LAT EXAM: XR KNEE RT 2V AP,LAT CLINICAL HISTORY: s/p Revision R TKA. TECHNIQUE: 2D digital imaging was performed. Two images were obtained. AP and lateral views were obtained. COMPARISON: CR XR KNEE RT 2V AP,LAT from 07/04/2023 FINDINGS: BONES: The patient has now had a revision of the right total knee arthroplasty. Orthopedic hardware appears in good position. There are no suspicious lucencies around the orthopedic hardware. No fracture or dislocation. JOINTS: The orthopedic hardware is in good position. No evidence of hardware loosening. SOFT TISSUE: Postsurgical changes are seen in the soft tissues. IMPRESSION: Status post right total knee arthroplasty revision. DATA REPOSITORY: RADIATION DOSE DELIVERED:
--- NOTE | 2025-04-10 06:26 | W.ANESPRE ---
General Info Date of Service Date Performed: 04/10/25 Height: 5 ft 8.5 in Weight: 91.172 kg Body Mass Index (BMI): 30.1 Surgical Procedure: Operation Date: 04/10/25 12:25 Proposed Procedure Side Surgeon p Knee Total Revision-ATTUNE Right Karl Aguilera MD Meds Allergies and Home Medications Allergies Allergy/AdvReac Type Severity Reaction Status Date / Time No Known Allergies Allergy Verified 04/10/25 10:24 Home Medication Medication Instructions Recorded citalopram 20 mg tablet (Celexa) 20 mg PO HS 02/08/20 rosuvastatin 20 mg tablet 20 mg PO DAILY 09/19/23 [id number] 1 tab PO DAILY 10/07/24 aspirin 81 mg chewable tablet 81 mg PO DAILY #0 tabs 10/08/24 (Children's Aspirin) dulaglutide 4.5 mg/0.5 mL 4.5 mg (0.5 mL) subcut QWEEK #2 mL 01/10/25 subcutaneous pen injector ([facility]) magnesium oxide 500 mg capsule 500 mg PO DAILY 01/10/25 omeprazole 20 mg capsule,delayed 20 mg PO DAILY 01/10/25 release lisinopril 20 mg tablet 10 mg PO DAILY 02/07/25 Current Visit Medications: Current Medications Generic Name Dose Route Start Last Admin Trade Name Freq PRN Reason Stop Dose Admin Acetaminophen 1,000 mg 04/10/25 06:00 Acetaminophen 500 Mg Tab PO 05/09/25 23:59 PREOP SUSANA Celecoxib 400 mg 04/10/25 06:00 Celecoxib 200 Mg Cap PO 05/09/25 23:59 PREOP SUSANA Gabapentin 300 mg 04/10/25 06:00 Gabapentin 300 Mg Cap PO 05/09/25 23:59 PREOP SUSANA Ringer's Solution 1,000 mls @ 80 mls/hr 04/10/25 06:00 IV 05/09/25 23:59 INFUSION SUSANA Cefazolin Sodium/Dextrose 2 gm in 50 mls @ 100 mls/hr 04/10/25 06:00 Ancef Duplex IVPB 05/09/25 23:59 PREOP SUSANA Tranexamic Acid/Sodium Chloride 1,000 mg in 100 mls @ 600 mls/hr 04/10/25 06:00 IVPB 05/09/25 23:59 PREOP SUSANA IV Miscellaneous Supplies 1 each 04/10/25 06:00 Iv Access IV 05/09/25 23:59 DIRECTED SUSANA Sodium Chloride 0 ml 04/10/25 06:00 Normal Saline Flush 10 Ml Syr IV 05/09/25 23:59 PRN PRN Sodium Chloride 0 ml 04/10/25 06:00 Normal Saline 10 Ml Vial IJ 05/09/25 23:59 DIRECTED PRN Sterile Water 0 ml 04/10/25 06:00 Water,Injection,Sterile 10 Ml Vial IJ 05/09/25 23:59 DIRECTED PRN PFSH Active Problems Active Problems: Problem Status Onset Code TIA (transient ischemic attack) Acute G45.9 Throbbing headache Acute R51.9 Expressive aphasia Resolved R47.01 Visual disturbance Acute H53.9 Loosening of prosthesis of right knee joint Acute T84.032A Painful total knee replacement, right Acute T84.84XA, Z96.651 Pain of right heel Acute M79.671 Right Achilles tendinitis Acute M76.61 Pes anserinus bursitis of right knee Acute M70.51 Left lateral epicondylitis Acute M77.12 Left carpal tunnel syndrome Acute 08/09/16 G56.02 Left wrist tendinitis Acute 03/09/17 M77.8 Medical History Medical History Depression Hyperlipidemia Hypertension Diabetes mellitus Surgical History Surgical History Arthrofibrosis of total knee arthroplasty RIGHT S/P arthroscopic debridement and manipulation: 07/30/2020 S/P repeate arthroscopic debridement and manipulation: 07/26/2023 History of revision of total replacement of right knee joint (05/05/22) Tibial component Hx of carpal tunnel repair Status post total right knee replacement (02/20/20) De Quervain's tenosynovitis, left (03/09/17) Status post Dequerveins release performed on 05/01/2018 Tobacco Smoking/Tobacco Use Status: Current-Occasional Tobacco Type: cigarettes Smoking cigarettes per day: 7 Years smoked: 32 Smoking pack-years: 11.20 Passive smoking exposure: Yes Alcohol Alcohol Intake: current Alcohol intake frequency: holidays/special occasions only Alcohol type: other Substance Use Substance use: Never Substance use type: does not use Vital Signs and Lab Results Vital Signs Most Recent Vital Signs in EMR: Temp Pulse Resp BP Pulse Ox 36.6 C 68 16 113/64 100 04/10/25 10:47 04/10/25 10:47 04/10/25 10:47 04/10/25 10:47 04/10/25 10:47 Lab Results Complete Blood Count: WBC, (4.4-10.8) 6.82 10^3/uL 03/15/25, 10:35 RBC, (3.93-5.22) 4.64 10^6/uL 03/15/25, 10:35 Hgb, (11.2-15.7) 13.5 g/dL 03/15/25, 10:35 Hct, (36.0-46.0) 40.2 % 03/15/25, 10:35 Plt Count, (130-400) 267 10^3/uL 03/15/25, 10:35 Complete Metabolic Panel: Sodium, (136-145) 141 mmol/L 03/15/25, 10:35 Potassium, (3.5-5.1) 4.6 mmol/L 03/15/25, 10:35 Chloride, (98-107) 105 mmol/L 03/15/25, 10:35 Carbon Dioxide, (21.0-32.0) 28.2 mmol/L 03/15/25, 10:35 BUN, (7-18) 8 mg/dL 03/15/25, 10:35 Creatinine, (0.55-1.02) 0.7 mg/dL 03/15/25, 10:35 Est GFR (CKD-EPI 2020), (mL/min/1.73m2) 104.00 03/15/25, 10:35 Calcium, (8.5-10.1) 9.2 mg/dL 03/15/25, 10:35 Albumin, (3.4-5.0) 3.7 g/dL 03/15/25, 10:35 Glucose, (74-106) 141 mg/dL H 03/15/25, 10:35 Hemoglobin A1c, (4.5-5.7) 6.4 % H 03/15/25, 09:23 Liver Function Panel: ALT, (14-59) 18 U/L 03/15/25, 10:35 AST, (15-37) 14 U/L L 03/15/25, 10:35 Imaging and Studies Imaging and Studies Study information below may be from another EMR and interpreted by another provider. Please see original notes in EMR for more complete details. EKG Summary: Conclusion Sinus rhythm...normal P axis, V-rate 60- 99 Normal Electrocardiogram Anesthesia Assessment and Plan Anesthesia History Personal History: No History of Anesthesia Complications Family History: No Family History of Anesthesia Complications Exercise Tolerance Exercise Tolerance: Metabolic Equivalents>4 Pertinent Negatives Pertinent Negatives: No Symptoms of GERD and Other (TIA in October, no symptoms since ) Cardiac & Pulmonary Exam Cardiac Exam: Normal S1/S2 Heart Sounds Pulmonary Exam: Clear Bilateral Breath Sounds Implantable Cardiac Device Does patient have a Pacemaker or an ICD?: No Airway Exam Known Difficult Airway: No Mallampati Class: 2 Mouth Opening: Normal (> 3cm) Thyromental Distance: Greater than 3 cm Neck Range of Motion: Full ROM Neck Circumference: Normal Teeth Condition: Generalized Poor Dentition ASA Classification ASA Score: ASA 2 Emergency Case?: No NPO Status NPO Status: NPO Clears >2 hours, Solids >8 hours Status Status: Pt. refuses testing, she was counseled on anesthesia risks Anesthesia Plan Resuscitation Status: Full Code Anesthesia Technique: Spinal Anesthesia Airway Planned: Natural Airway Pain Management: Surgeon and patient request nerve block Monitors Used: Standard Monitors Preoperative Comments:: 50 yo for revision TKA. Sig PMHx: HTN (lisinopril), TIA (per neuro note TIA vs migraine. Does have evidence of silent stroke on MRI. no longer on clopidegrel), GERD (omeprazole), aphasia, depression (citalopram), DM (Trulicity. last A1c 6.5%) Smoker, occ EtOH. ECHO: LVEF 58%. PASP 29 mmHg. no sig valve issues. ECG: sinus. CT neck: no sig stenosis. Previous Anes: - Knee scope, smith 2 2B, no issues. States had issues related to incontinence after. Went home with a diaper. - TKA revision, midaz, prop sedation, spinal with 1.2 mL heavy, no issues. - TKA, chloro spinal, prop sedation, no issues. - TKA, chloro spinal, midaz, prop sedation, no issues. - ECTR, prop, midaz, no issues.
[2025-04-10] MEDS: Celecoxib 200 MG CAP 400 MG PO (10:39)
[2025-04-10] MEDS: Acetaminophen 500 MG TAB 1000 MG PO ×2 (10:40→21:02)
[2025-04-10] MEDS: Lactated Ringers 1,000 ML 80 ML IV ×2 (10:41→17:10)
--- NOTE | 2025-04-10 10:46 | W.ANESPRE ---
General Info Height: 5 ft 8.5 in Weight: 91.172 kg Body Mass Index (BMI): 30.1 Surgical Procedure: Operation Date: 04/10/25 12:25 Proposed Procedure Side Surgeon p Knee Total Revision-ATTUNE Right Karl Aguilera MD Meds Allergies and Home Medications Allergies Allergy/AdvReac Type Severity Reaction Status Date / Time No Known Allergies Allergy Verified 04/10/25 10:24 Home Medication Medication Instructions Recorded citalopram 20 mg tablet (Celexa) 20 mg PO HS 02/08/20 rosuvastatin 20 mg tablet 20 mg PO DAILY 09/19/23 [id number] 1 tab PO DAILY 10/07/24 aspirin 81 mg chewable tablet 81 mg PO DAILY #0 tabs 10/08/24 (Children's Aspirin) dulaglutide 4.5 mg/0.5 mL 4.5 mg (0.5 mL) subcut QWEEK #2 mL 01/10/25 subcutaneous pen injector ([facility]) magnesium oxide 500 mg capsule 500 mg PO DAILY 01/10/25 omeprazole 20 mg capsule,delayed 20 mg PO DAILY 01/10/25 release lisinopril 20 mg tablet 10 mg PO DAILY 02/07/25 Current Visit Medications: Current Medications Generic Name Dose Route Start Last Admin Trade Name Freq PRN Reason Stop Dose Admin Acetaminophen 1,000 mg 04/10/25 06:00 04/10/25 10:40 Acetaminophen 500 Mg Tab PO 05/09/25 23:59 1,000 mg PREOP SUSANA Administration Acetaminophen 1,000 mg 04/10/25 08:30 Acetaminophen 500 Mg Tab PO TID SUSANA Aspirin 81 mg 04/10/25 20:00 Aspirin E.C. 81 Mg Tabec PO BID SUSANA Celecoxib 400 mg 04/10/25 06:00 04/10/25 10:39 Celecoxib 200 Mg Cap PO 05/09/25 23:59 400 mg PREOP SUSANA Administration Celecoxib 200 mg 04/10/25 08:30 Celecoxib 200 Mg Cap PO BID SUSANA Citalopram Hydrobromide 20 mg 04/10/25 20:00 Citalopram 20 Mg Tab PO HS SUSANA Dexamethasone 4 mg 04/10/25 08:30 Dexamethasone 4 Mg Tab PO 04/11/25 08:31 DAILY SUSANA Docusate Sodium 100 mg 04/10/25 07:27 Docusate Sodium 100 Mg Cap PO BID PRN PRN Constipation Gabapentin 300 mg 04/10/25 06:00 Gabapentin 300 Mg Cap PO 05/09/25 23:59 PREOP SUSANA Gabapentin 300 mg 04/10/25 20:00 Gabapentin 300 Mg Cap PO HS SUSANA Ringer's Solution 1,000 mls @ 80 mls/hr 04/10/25 06:00 04/10/25 10:41 IV 05/09/25 23:59 80 mls/hr INFUSION SUASNA Administration Cefazolin Sodium/Dextrose 2 gm in 50 mls @ 100 mls/hr 04/10/25 06:00 Ancef Duplex IVPB 05/09/25 23:59 PREOP SUSANA Tranexamic Acid/Sodium Chloride 1,000 mg in 100 mls @ 600 mls/hr 04/10/25 06:00 IVPB 05/09/25 23:59 PREOP SUSANA Cefazolin Sodium/Dextrose 1 gm in 50 mls @ 100 mls/hr 04/10/25 14:00 Ancef Duplex IVPB 04/11/25 06:29 Q8H [facility] IV Miscellaneous Supplies 1 each 04/10/25 06:00 Iv Access IV 05/09/25 23:59 DIRECTED [facility] Lisinopril 10 mg 04/10/25 08:30 Lisinopril 10 Mg Tab PO DAILY [facility] Magnesium Oxide 400 mg 04/10/25 08:30 Magnesium Oxide 400 Mg Tab PO DAILY [facility] Non-Formulary Medication 4.5 mg 04/10/25 07:30 Dulaglutide [Trulicity] SC QWEEK [facility] Non-Formulary Medication 1 tab 04/10/25 08:30 [id number] PO DAILY [facility] Omeprazole 20 mg 04/11/25 07:30 Omeprazole 20 Mg Capcr PO DAILY@0730 [facility] Oxycodone HCl 0 mg 04/10/25 07:27 Oxycodone 5 Mg Tab PO Q3H PRN PRN Pain Polyethylene Glycol 17 gm 04/10/25 07:27 Polyethylene Glycol 3350 17 Gm Packet PO BID PRN PRN Constipation Rosuvastatin Calcium 20 mg 04/10/25 08:30 Rosuvastatin 20 Mg Tab PO DAILY [facility] Sodium Chloride 0 ml 04/10/25 06:00 Normal Saline Flush 10 Ml Syr IV 05/09/25 23:59 PRN PRN Sodium Chloride 0 ml 04/10/25 06:00 Normal Saline 10 Ml Vial IJ 05/09/25 23:59 DIRECTED PRN Sterile Water 0 ml 04/10/25 06:00 Water,Injection,Sterile 10 Ml Vial IJ 05/09/25 23:59 DIRECTED PRN PFSH Active Problems Active Problems: Problem Status Onset Code TIA (transient ischemic attack) Acute G45.9 Throbbing headache Acute R51.9 Expressive aphasia Resolved R47.01 Visual disturbance Acute H53.9 Loosening of prosthesis of right knee joint Acute T84.032A Painful total knee replacement, right Acute T84.84XA, Z96.651 Pain of right heel Acute M79.671 Right Achilles tendinitis Acute M76.61 Pes anserinus bursitis of right knee Acute M70.51 Left lateral epicondylitis Acute M77.12 Left carpal tunnel syndrome Acute 08/09/16 G56.02 Left wrist tendinitis Acute 03/09/17 M77.8 Medical History Medical History Depression Hyperlipidemia Hypertension Diabetes mellitus Surgical History Surgical History Arthrofibrosis of total knee arthroplasty RIGHT S/P arthroscopic debridement and manipulation: 07/30/2020 S/P repeate arthroscopic debridement and manipulation: 07/26/2023 History of revision of total replacement of right knee joint (05/05/22) Tibial component Hx of carpal tunnel repair Status post total right knee replacement (02/20/20) De Quervain's tenosynovitis, left (03/09/17) Status post Dequerveins release performed on 05/01/2018 Tobacco Smoking/Tobacco Use Status: Current every day Tobacco Type: cigarettes Smoking cigarettes per day: 7 Years smoked: 32 Smoking pack-years: 11.20 Passive smoking exposure: Yes Alcohol Alcohol Intake: current Alcohol intake frequency: holidays/special occasions only Alcohol type: other Substance Use Substance use: Never Substance use type: does not use Vital Signs and Lab Results Lab Results Complete Blood Count: WBC, (4.4-10.8) 6.82 10^3/uL 03/15/25, 10:35 RBC, (3.93-5.22) 4.64 10^6/uL 03/15/25, 10:35 Hgb, (11.2-15.7) 13.5 g/dL 03/15/25, 10:35 Hct, (36.0-46.0) 40.2 % 03/15/25, 10:35 Plt Count, (130-400) 267 10^3/uL 03/15/25, 10:35 Complete Metabolic Panel: Sodium, (136-145) 141 mmol/L 03/15/25, 10:35 Potassium, (3.5-5.1) 4.6 mmol/L 03/15/25, 10:35 Chloride, (98-107) 105 mmol/L 03/15/25, 10:35 Carbon Dioxide, (21.0-32.0) 28.2 mmol/L 03/15/25, 10:35 BUN, (7-18) 8 mg/dL 03/15/25, 10:35 Creatinine, (0.55-1.02) 0.7 mg/dL 03/15/25, 10:35 Est GFR (CKD-EPI 2020), (mL/min/1.73m2) 104.00 03/15/25, 10:35 Calcium, (8.5-10.1) 9.2 mg/dL 03/15/25, 10:35 Albumin, (3.4-5.0) 3.7 g/dL 03/15/25, 10:35 Glucose, (74-106) 141 mg/dL H 03/15/25, 10:35 Hemoglobin A1c, (4.5-5.7) 6.4 % H 03/15/25, 09:23 Liver Function Panel: ALT, (14-59) 18 U/L 03/15/25, 10:35 AST, (15-37) 14 U/L L 03/15/25, 10:35 Imaging and Studies Imaging and Studies Study information below may be from another EMR and interpreted by another provider. Please see original notes in EMR for more complete details. EKG Summary: Conclusion Sinus rhythm...normal P axis, V-rate 60- 99 Normal Electrocardiogram Anesthesia Assessment and Plan Anesthesia History Personal History: No History of Anesthesia Complications Family History: Family History Unknown Exercise Tolerance Exercise Tolerance: Metabolic Equivalents>4 Implantable Cardiac Device Does patient have a Pacemaker or an ICD?: No Airway Exam Known Difficult Airway: No Mallampati Class: 2 Mouth Opening: Normal (> 3cm) Thyromental Distance: Greater than 3 cm Neck Range of Motion: Full ROM Neck Circumference: Normal Teeth Condition: Generalized Poor Dentition
[2025-04-10] MEDS: ceFAZolin 2 GM/50 ML BAG IVPB (11:57)
[2025-04-10] MEDS: TRANEXAMIC ACID/SOD. CHL. 1,000 MG/100 ML BAG 600 MG IVPB (12:00)
[2025-04-10] MEDS: EPINEPHrine 1 MG/ML AMP pres-free (12:29)
[2025-04-10] MEDS: Ketorolac 30 MG/ML VIAL (12:30)
[2025-04-10] MEDS: ROPIvacaine 0.2% 200 MG/100 ML BAG (12:30)
--- NOTE | 2025-04-10 15:52 | W.ANESNERVE ---
Nerve Block Single Injection Procedure Date and Time Date Performed: 04/10/25 Procedure Start: :28 Location Where Procedure Performed Procedure Location: Day Surgery Unit Reason Performed: Postoperative Analgesia Requesting Provider: Karl Aguilera Timeout Performed Timeout Performed: Yes Monitoring Used ECG, Blood Pressure, SpO2 and See EMR for corresponding vital signs Sterility Sterility: Hand Hygiene, Surgical Cap, Surgical Mask, Sterile Gloves and Chlorhexidine Sedation Given During Procedure Sedation Given (Indicate Dose Given): Versed IV Dose:: 2mg Patient Mental Status Patient Mental Status: Sedate with meaningful communication Nerve Block 1st Nerve Block: Laterality: Right Block Type: Adductor Canal Ultrasound Image Saved?: Yes Needle / Catheter Used: 100mm SonoPlex II Local Anesthetic Bolus (Indicate Dose Given): Lidocaine used for local infiltration of skin, Injected in 3-5ml increments after negative blood aspiration, Bupivacaine 0.25% Dose:: 10ml and Exparel Dose:: 7ml Additives (Indicate Dose Given): None Ultrasound: Sterile probe cover and gel used Nerve Stimulator: Supplement to Ultrasound use and No twitch or parasthesia noted < 0.5 mA (<0.8 mA) Paresthesia: None Procedure Tolerated: No Complications and Patient tolerated well Procedure Outcome: Successful Performed By: Yenifer Wilson Supervised By: Randall Julio
--- NOTE | 2025-04-10 16:01 | ROE_ITS ---
Operative Note Operative Note PRE-OP DIAGNOSIS: Loose, Painful Right Knee Replacement POST-OP DIAGNOSIS: same PROCEDURE: Revision Total Knee Replacement - RIGHT, with intraoperative navigation SURGEON: Karl Aguilera VARNISHER PLASTICOATER: Kishore Ingram ANESTHESIA TYPE: General LMA/ETT and Spinal Refer to Anesthesia Record ESTIMATED BLOOD LOSS: 300 PATHOLOGY: none sent TOURNIQUET TIME: 50 COMPLICATIONS: None Patient was transported to: PACU Patient's condition: stable Implants: TIBIA: Depuy Attune Revision Tibial Tray, Size 6 - 14x30 Cementless Tibial Stem - Cementless Cone, Medium FEMUR: Depuy Attune Revision CRS Femoral Component, Size 8 - [id number] Cementless Femoral Stem - Cementless Cone, Medium - Posterior Augments - 8mm Laterally, 4mm Medially POLY: Depuy Attune CRS Rotating Platform, 8x10mm Indications: I have seen Stephanie in clinic for symptoms of ongoing knee pain. She had notable arthrofibrosis and pain about the knee as well as what appear to be some loosening as seen on the bone scan and x-ray. Therefore, I offered revision knee replacement. I discussed the technical details of a revision knee replacement. I explained the risks of the procedure to include, but not limited to, bleeding, infection, pain, stiffness, fracture, damage to nerves and vessels, damage to muscles and tendons, loosening, need for repeat procedure, blood clot and cardiopulmonary demise. Despite these risks, Stephanie elected to proceed. Findings: There was no significant ingrowth to the lateral aspect of the femoral component although there may have been just a little bit at the anterior flange. The bone was quite soft from the anterior chamfer down to the posterior cut. There was maybe some ingrowth medially but no significant growth laterally. The tibia showed potentially some loosening of the cement from the tibia about the medial aspect. However, the lateral aspect did not show any debonding or loose. There was a dense adhesions and scarring within the knee. Procedure Description: Stephanie was greeted in the preoperative holding area where the correct side was identified and marked. The consent was reviewed with the patient and signed. The history and physical was updated. All questions were answered. Preoperative medications were administered: Acetaminophen 1000mg, Celebrex 400mg, and Gabapentin 300mg. An adductor canal block was then administered by the anesthesia team in the PACU. Stephanie was taken back to the operating room. A spinal anesthestic was then administered. The patient was placed into the supine position on the operating room table. A nonsterile tourniquet was placed high onto the leg. Posts were placed for positioning during the procedure. All bony prominences were well padded. Prophylactic antibiotics in the form of Cefazolin were administered. 1g of Tranxemic Acid was given intravenously within 30 minutes of incision. The right leg was then prepped with Chloraprep and draped in a st andard fashion with impervious stockinette. A second prep with Chloraprep was performed prior to application of Iodine impregnated skin protection. A timeout to confirm correct identity, side and site, procedure, allergies, anesthesia, and medical concerns was performed. With the knee in some flexion, the previous midline incision was made overlying the knee excising out the previous scar. Full thickness skin flaps were raised once the extensor mechanism was encountered. These were raised medially and laterally in a full thickness fashion. Any bleeding was controlled with electrocautery. Once the extensor mechanism was fully exposed, a medial parapatellar arthrotomy was performed in a flexed position. All bleeding from the arthrotomy and the geniculate arteries was coagulated. An aggressive complete synovectomy was then performed superiorly, medially, and laterally utilizing 2 Allis and 2 Annika clamps. I also went around the implant and released any capsular adhesions from the visible border between implant and capsule. The scarring from the fat pad and a portion of the fat pad was removed as well. The adhesions and synovium was quite dense throughout the entirety of the knee. A pin was placed over the lateral edge of the tubercle to prevent any rollback of the patellar ligament. Then, the knee was then flexed up and the previous polyethylene was removed. Attention was then turned to removal of the previous implants. Starting with the femur the interface between the bone and the implant was identified. Utilizing flexible osteotomes I went around the entirety of the femoral component to remove any remaining attachments of the component to the underlying bone. This was done sequentially in a stepwise fashion throughout. There was no significant ingrowth to the majority of the femoral implant except over the anterior flange and maybe a slight amount over the medial–distal femur. After going around to loosen any adhesions or attachments, I used a bone tamp on the sides of the implant as well as anteriorly, was able to remove the femoral component with minimal bone loss. The bone and release this was inspected. Then, attention was turned to the tibia. I used a small oscillating saw to go around the periphery of the tibia. Medially, the bone around the cement was quite soft. The attachment seem to be more dense laterally. I then used a flexible osteotome to work on the tibial component from the underlying bone. This was done around the periphery of the component until was felt that it was sufficiently freed. Utilizing a bone tamp from under the lip of the tibia I was able to remove the tibial component. Once again, this was inspected and showed no significant signs of bone loss or fracture. Cement was then removed from the proximal tibia utilizing a small straight osteotome. Small cruciate loomis were made and the cement and the cement was removed from the bone trying to disturb his little bone as possible underneath the cement. This is also taken down into the canal where the osteotome was utilized to break through the distal plug of cement which was removed. Utilizing curved osteotomes as well as curettes, was able to remove the remaining cement from the proximal tibia. A posterior synovectomy was also performed there was better visualization. Any remnant inflamed synovium and necrotic tissue was debrided fully. This was once again extremely dense and taut tissue. I released it from the posterior tibia and the posterior aspect of the femur. A 12 mm reamer was used into the tibia. This was left in place and the cut guide was placed over this reamer to recut the proximal tibia. Approximately 1 to 2 mm of tibia was cut to a fresh, level surface. Then, I then used a 12 mm reamer up the femoral canal to establish the canal position. A 2 mm freshening cut was made over the distal femur to a flat surface utilizing a 5 degree valgus cutting block. To gauge her flexion and extension gaps the Ortholign device was utilized to establish our gaps. With the leg in extension there is an extension gap of approximately 24 mm. The leg was then brought up into flexion and once again us ing the Ortholign device the flexion gap was measured to be balanced but had about 28 mm. Utilizing the balancing device the construct on the femur was placed adjacent to the metal paddles to establish rotation and positioning of the femoral component. This was pinned in position. Based on these numbers, the flexion gap needed to be filled in relation to the extension gap. The size 7 guide was placed onto the femur. Anterior cut was freshened up which was a fairly minimal cut over the more proximal aspect of the anterior flange. Posterior anterior chamfers were performed. This showed the need for an approximate size 4 mm posterior lateral augment and no augment medially. Trial components were then placed to test the balance. Unfortunately, this showed that we had some laxity in flexion compared to a tight extension gap. Therefore, I moved to a size 8 femur. I also utilized the offset handle to add 2 mm of offset posteriorly. This was placed into the femur, rotation was set by utilizing a flexion gap device. This was pinned into position. The additional cuts were performed. Once again, this was trialed and showed much better balance between flexion and extension gaps. The trial femur was removed. The size 6 tibial tray had appropriate fit to the proximal tibia and was pinned into place. The tibial shaft was reamed with a 14 mm reamer as well as an opening reamer. The keel was punched. I then prepared the proximal tibia for a cone, size medium. With the cut through device in place the lateral side was noted to need an 8 mm augment posteriorly and the medial side need a 4 mm augment posteriorly. The canal was reamed with a 14 mm reamer and the box was also opened. The cut through device was removed and the distal femur was prepared for a cone. The s ize small cone did not have adequate fixation and therefore this was increased to a size medium cone. The final components, except for the polyethylene were opened on the back table. The periosteal and capsular tissues, especially posteriorly, around the knee were then systematically injected with a periarticular cocktail consisting of 200mg of Ropivacaine, 0.5mg of Epinephrine, and 30mg of Ketorolac, diluted to 100cc. The tourniquet was then inflated to 300mmHg. The knee was thoroughly irrigated with a pulse lavage and dried. On the back table, the implants were opened. They are assembled according to paradi tender recommendations. The length of the implants were measured and cement restrictors were placed in the tibia and the femur. Now with the implants opened, the cement was mixed. 3 batches of medium viscosity cement were prepared with vacuum assistance. After the cement was ready, cement was placed onto the backside of the tibia as well as the entire backside of the fe mur up to the level the box. Utilizing a cement gun, cement was placed in the tibial canal and then onto the surface of the tibia. Then, the tibia was inserted with the keel aligned. Once it appeared to be appropriately oriented, it was impacted into position. Excess cement was removed. It was ensured to be down against the cut surface. Next, cement was manually impacted onto the cut surface of the distal femur and was inserted into the canal. The femoral component was then inserted utilizing the femoral component for rotational control. This was impacted into position. Excess cement was removed. The trial polyethylene was then inserted and the leg was brought out into full extension for the duration of the cement curing process, approximately 18min. During this process attention was turned to the gutters of the knee and for all interfaces for any excess cement. While the cement was hardening, the knee was irrigated with Surgiphor Betadine solution. This was allowed to sit in the knee for 3 minutes and then it was thoroughly irrigated with saline. After the cement had finally cured, approximately 18min, the knee was taken through range of motion. A size 10mm polyethylene component provided the best range of motion and stability with less than 2mm gapping with medial and lateral stress and full extension without significant hyperextension. The patella was tracking with a no-thumbs technique. The trial poly was removed and once again the knee was checked for any loose, excess, or errant cement. The poly component was then inserted nto position after cleaning and drying the tibial tray. The capsule was then reapproximated with a No. 1 Vicryl at multiple locations. The capsule was finally closed with a No. 2 Stratafix, barbed suture. The tourniquet was then released and the arthrotomy appeared watertight without significant bleeding. Deep tissues were then reapproximated with 0 Vicryl and 2-0 Vicryl. The skin was closed with a running 3-0 Monocryl in a subcuticular fashion. This was reinforced with skin glue. A Mepilex silver dressing was applied along with a [id number] ELIZABETH wrap. A CryoCuff was applied. Stephanie was transferred to the hospital bed without difficulty an suffering no apparent complication. Stephanie has a good prognosis. Physical therapy will start today and without restrictions, weight-bearing as tolerated. Aspirin 81mg BID will be used for DVT prophylaxis. Date of Procedure: 04/10/25
[2025-04-10] MEDS: ePHEDrine 25 MG/5 ML Syringe IVP (16:52)
--- NOTE | 2025-04-10 17:11 | W.ANESPOSTOP ---
Postoperative Evaluation Date, Time and Location Date Performed: 04/10/25 Time Performed: 17:11 Patient Location: PACU Vital Signs Most Recent Imported Vital Signs: Most Recent Vital Signs Temp Pulse Resp BP Pulse Ox 36.5 C 83 18 92/51 L 95 04/10/25 17:00 04/10/25 17:10 04/10/25 17:10 04/10/25 17:06 04/10/25 17:10 Pain Score Most Recent Pain Score: Most Recent Pain Score Pain Level 0 04/10/25 17:00 Assessment Mental Status: Arousable with meaningful communication Airway and Respiratory Function: Patent airway with normal (patient baseline) respiratory exam Cardiovascular Function: Hemodynamically Stable Hydration Status: Adequately Hydrated Nausea & Vomiting: No Nausea or Vomiting Pain: Pt. Denies Any Pain Peripheral Nerve Block: Patient did not receive a nerve block
--- NOTE | 2025-04-10 17:45 | IN_ITS ---
PT Notes Physical Therapy Inpatient Initial Evaluation Date: 04/10/2025 Referring Doctor: TAVON Steven PT Orders: PT CONSULT: S/P Ortho surgery Precautions: Fall. Standard. WBAT on right LE. Patient Profile/Admitting Diagnosis: Stephanie is a 44-year-old female with loose, painful R TKA S/P R total knee revision on postoperative day 0. She was S/P revision of loose tibial component of R TKA on 05/05/2022 due to aseptic loosening of a R TKA originally done on 02/20/2020. She is also S/P arthroscopic debridement and manipulation on 021. PMHX: All Active Problems TIA (transient ischemic attack) (Acute) Throbbing headache (Acute) Visual disturbance (Acute) Loosening of prosthesis of right knee joint (Acute) Painful total knee replacement, right (Acute) Pain of right heel (Acute) Right Achilles tendinitis (Acute) Pes anserinus bursitis of right knee (Acute) Left lateral epicondylitis (Acute) Left carpal tunnel syndrome (Acute 08/09/16) Left wrist tendinitis (Acute 03/09/17) Medical History Depression Hyperlipidemia Hypertension Diabetes mellitus Surgical History Arthrofibrosis of total knee arthroplasty RIGHT S/P arthroscopic debridement and manipulation: 07/30/2020 S/P repeate arthroscopic debridement and manipulation: 07/26/2023 History of revision of total replacement of right knee joint (05/05/22) Tibial componentHx of carpal tunnel repair Status post total right knee replacement (02/20/20) De Quervain's tenosynovitis, left (03/09/17) Status post Dequerveins release performed on 05/01/2018 Social History/Home Situation: Lives with significant other in a private home with 4 steps with rails on both sides leading onto a porch. With all mobility ADL performance without any assistive ambulatory device nor adaptive equipment. Equipment Owned/DME: Bilateral axillary crutcges Subjective: Agreeable to PT consult. Denies headache, chest pain, nausea, and dizziness thr oughout session. Objective: General Observation: ELIZABETH wraps to R LE. Cryocuff to R knee. IV in R UE. TEDS on L leg. Mental Status: Alert and oriented x 4 Pain: 6-7/10 in the R knee ROM: Right Lower Extremity: Hip flexion WFL. Hip abduction WFL. Knee flexion allows 10 to 100 degrees. Knee extension -10 degrees. Ankle dorsiflexion WFL. Ankle plantarflexion WFL. Left Lower Extremity: Hip flexion WFL. Hip abduction WFL. Knee flexion WFL. Ankle dorsiflexion WFL. Ankle plantarflexion WFL. Strength: Right Lower Extremity: Hip flexors 5/5. Hip abductors 5/5. Knee flexors 3-/5. Knee extensors 3-/5. Ankle dorsiflexors 5/5. Ankle plantarflexors 5/5. Left Lower Extremity:Hip flexors 5/5. Hip abductors 5/5. Knee flexors 5/5. Knee extensors 5/5. Ankle dorsiflexors 5/5. Ankle plantarflexors 5/5. Sensation: Mild numbness through R LE Bed Mobility/Transfers: Minimal cueing provided for use of B hands as needed for support, movement sequence, AD management, and posture to reduce fall risk and minimize pain report Supine to sit stand by assist with HOB flat Sit to stand contact guard assist with minimal cues needed for hand placement Stand to sit stand by assist with minimal cues needed for hand placement Bed to toilet seat stand by assist with FWW Toilet seat to bed stand by assist wt FWW Gait: 550 feet with FWW with stand by assist with partial step through gait pattern. Decreased luma. Good quadriceps activation. Minimal verbal cueing for posture, weight distribution, increased hip and knee flexion on R for symmetric gait pattern throughout, and AD management. Mild antalgia noted. Stairs: Up and down 6 x 4-inch steps and 4 x 6-inch steps while holding onto B rails with step-to gait pattern with stand by assist. Minimal verbal cueing for posture, weight distribution, increased hip and knee flexion on R for symmetric gait pattern throughout, and AD management THERA EX: Trained patient with correct performance of exercises below to maximize motor control, joint flexibility, soft tissue extensibility of the [] knee musculature: Access Code: [email or web address] URL: [email or web address] Date: 04/10/2025 Prepared by: Yiemi Babcock Exercises - Supine Quad Set - 1 x daily - 7 x weekly - 1 sets - 10 reps - 5 hold - Supine Heel Slide - 1 x daily - 7 x weekly - 1 sets - 10 reps - 5 hold - Supine Ankle Pumps - 1 x daily - 7 x weekly - 1 sets - 10 reps - 5 hold - Small Range Straight Leg Raise - 1 x daily - 7 x weekly - 1 sets - 10 reps - 5 hold - Seated March - 1 x daily - 7 x weekly - 1 sets - 10 reps - 5 hold Balance: Static Sitting: Normal Dynamic Sitting: Normal Static Standing: Fair Dynamic Standing: Fair Special Tests: Mobility Limitations Standardized Measure [facility] AM-PAC 6 clicks Basic Mobility Inpatient Short Form: Raw Score: 21 CMS Score: 29% deficit Informed Consent/Education: Patient instructed in purpose of PT consult and plan of care. Written HEP education and training competed. Assessment: Stephanie demonstrates functional mobility decline requiring the use of a front- wheeled walker for all mobility ADL performance to maximize independence and reduce fall risk. She will have support of her significant other at home. Stephanie is a 44-year-old female with loose, painful R TKA S/P R total knee revision on postoperative day 0. She was S/P revision of loose tibial component of R TKA on 05/05/2022 due to aseptic loosening of a R TKA originally done on 02/20/2020. She is also S/P arthroscopic debridement and manipulation on 07/30/2020. Patient presents with clinical signs and symptoms consistent with current/admitting diagnoses that have resulted to mobility limitations, gait instability, generalized weakness, and impairment of motor control as demonstrated by the following impairment level findings: 1. Decreased strength to right knee major muscle groups 2. Impaired standing balance 3. Impaired activity tolerance 4. Limitation of joint range of motion in right knee Impairments are contributing to the following functional limitations: 1. Inability to safely ambulate without assistive device 2. Increase completion time for mobility ADL performance 3. Increased fall risk 4. Inability to negotiate steps alone safely Patient is assessed as a 12173 moderate complexity based on the following: History: 44-year-old female with impairment level findings, functional limitations, and past medical history as indicated above Examination: Demonstrable impairment in strength, balance, and mobility level with underlying impairments and functional limitations as documented above Presentation:Evolving Decision Makin moderate complexity Goals: Goals X1 week 1. Supine-Sit independent 2. Sit-Supine independent 3. Sit-Stand independent 4. Stand-Sit independent 5. Bed-Chair independent 6. Chair-Bed independent 7. Independent gait on level surface with use of least restrictive device for at least 300 feet without report of pain nor dyspnea 8. Independent stair negotiation while holding onto bilateral rails for at least 10 steps without report of pain nor dyspnea 9. Independent with home exercise program 10. Good static and dynamic standing balance/tolerance Plan of Care/Treatment Plan: Patient will highly benefit from skilled physical therapy services including functional mobility training, bed mobility/transfer training, gait and balance training, therapeutic exercises, therapeutic activity, caregiver/staff/family education and training 1x/day, 7 days/week x 1 week. Plan of care has been reviewed with the PERFORMANCE IMPROVEMENT MANAGER providing the service under Physical Therapy direction. Initiate Physical Therapy intervention for strengthening, bed mobility, transfers, gait, stairs, balance training, use of assistive device. DISCHARGE RECOMMENDATIONS: Home when medically cleared. Outpatient PT services return to premorbid independent level and promote return to vocational activities. Needs front wheeled walker to maximize independence at home. TREATMENT CODE/TIME: 39597 x 19 minutes for 1 unit (5:45-6:04). Thank you for the opportunity to participate in the care of this patient. Yeimi Babcock PT, DPT, CLT [facility] [place], [place]
--- NOTE | 2025-04-10 19:04 | W.PC.ACHO ---
Registration Status: ADM IN Primary Language: Preferred Language: Tajik Medical / Surgical History (Last Reviewed 04/10/25 @ 10:48 by Shira Ingram) Depression Hyperlipidemia Hypertension Diabetes mellitus (Last Reviewed 04/10/25 @ 10:48 by Shira Ingram) Arthrofibrosis of total knee arthroplasty History of revision of total replacement of right knee joint (05/05/22) Hx of carpal tunnel repair Status post total right knee replacement (02/20/20) De Quervain's tenosynovitis, left (03/09/17) Most Recent Vital Signs Temperature 36.1 C L 04/10/25 18:23 Temperature Source Temporal Artery Scan 04/10/25 18:23 Pulse 83 04/10/25 18:23 Pulse Rhythm Regular 04/10/25 17:30 Pulse 83 04/10/25 17:10 Respiratory Rate 16 04/10/25 18:23 Respiratory Effort Normal, Non-Labored 04/10/25 17:30 Respiratory Depth Normal 04/10/25 17:30 Respiratory Pattern Normal 04/10/25 17:30 Blood Pressure 92/53 L 04/10/25 18:23 Blood Pressure Mean 66 04/10/25 18:23 Blood Pressure Position Supine 04/10/25 11:26 Pulse Oximetry 98 04/10/25 18:23 Respiratory End-tidal CO2 39 04/10/25 17:10 Oxygen Delivery Method Room Air 04/10/25 18:23 Oxygen Flow Rate 0 04/10/25 18:23 Pain Level 0 04/10/25 17:11 Comment 2mg IV Midazolam pre-op administered by AF, MARKETING SALES SUPERVISOR; pt tolerated well. 04/10/25 11:26 Allergies No Known Allergies Allergy (Verified 04/10/25 10:24) Active Medications Generic Name Dose Route Start Last Admin Trade Name Freq PRN Reason Stop Dose Admin Acetaminophen 1,000 mg 04/10/25 06:00 04/10/25 10:40 Acetaminophen 500 Mg Tab PO 05/09/25 23:59 1,000 mg PREOP SUSANA Administration Celecoxib 400 mg 04/10/25 06:00 04/10/25 10:39 Celecoxib 200 Mg Cap PO 05/09/25 23:59 400 mg PREOP SUSANA Administration Cefazolin Sodium/Dextrose 2 gm in 50 mls @ 100 mls/hr 04/10/25 06:00 04/10/25 12:27 Ancef Duplex IVPB 05/09/25 23:59 Infused PREOP SUSANA Infusion Tranexamic Acid/Sodium Chloride 1,000 mg in 100 mls @ 600 mls/hr 04/10/25 06:00 04/10/25 12:10 IVPB 05/09/25 23:59 Infused PREOP SUSANA Infusion IV IV Catheter Type [Left Hand] Saline Lock IV Catheter Gauge [Left Hand] 20 Diet Orders Category Date Time Status Regular/Normal [DIET] Nutrition 04/10/25 Lunch Active [id number] Documentation Fingerstick Glucose Start: 04/10/25 16:03 Freq: AC & HS Status: Active Protocol: Activity Type Activity Date Activity User E-sign Co-sign Detail Recorded Client Recorded Date Recorded By Document 04/10/25 16:30 RM [id number] 04/10/25 17:28 RM Intake and Output - 24 Hour Total 02/11/25 09:35 thru 04/10/25 18:00 Intake Total 1150 Output Total 300 Balance 850 Weight 90 kg Intake: IV 1150 Output: Estimated Blood Loss 300 Other: Comment pt attempted to void on toilet and felt she did not have to go Emesis Description None Falls Risk Assessment History of Falls No History 04/10/25 17:30 Contributing Factors Unstable,Impairments 04/10/25 17:30 Ambulatory Aids Uses ambulatory device 04/10/25 17:30 Tubes/Lines W/no contributing factors 04/10/25 17:30 Gait Evaluation W/no contributing factors 04/10/25 17:30 Cognition No cognitive impairment 04/10/25 17:30 Fall Total Score 41 04/10/25 17:30 Level of Risk Moderate Risk 04/10/25 17:30 v v v v v v v v v Sending and/or Receiving Nurses: Please use comment section below to note any information pertinent to the patient hand-off not included above. Information / Comments: Pt soft b/p @ baseline, 100s systolic. Report received from:ARLETH Garcia RN
[2025-04-10] MEDS: Lactated Ringers 1,000 ML 1000 ML IV (20:04)
[2025-04-10] MEDS: Tranexamic Acid 650 MG TAB 1300 MG PO (21:01)
[2025-04-10] MEDS: Aspirin E.C. 81 MG TABEC PO (21:02)
[2025-04-10] MEDS: Celecoxib 200 MG CAP PO (21:02)
[2025-04-10] MEDS: ceFAZolin 1 GM/50 ML BAG IVPB (21:03)
[2025-04-10] MEDS: Citalopram 20 MG TAB PO (21:03)
[2025-04-10] MEDS: Insulin Aspart 300 UNITS/3 ML PEN 12 UNITS SC (21:30)
[2025-04-11 03:31] VITALS: BP 126/72; PULSE 87; RESP 18; TEMP 36.5; O2SAT 97
[2025-04-11] MEDS: Insulin Aspart 300 UNITS/3 ML PEN SC ×2 (03:38→08:02)
[2025-04-11] MEDS: Normal Saline Flush 10 ML SYR IV ×2 (04:03→08:02)
[2025-04-11] MEDS: ceFAZolin 1 GM/50 ML BAG IVPB (04:04)
[2025-04-11 06:52] LABS: HCT 29.8 % (36.0-46.0); HGB 10.1 g/dL (11.2-15.7); MCH 29.0 pg (27.0-33.0); MCHC 33.9 % (32.0-36.0); MCV 86 fL (80-95); MPV 10.9 fL (8.0-11.0); Platelet Count 205 10^3/uL (130-400); RBC 3.48 10^6/uL (3.93-5.22); RDW 12.9 % (11.7-14.6); RDW-SD 40.4 fL; WBC 15.06 10^3/uL (4.4-10.8)
[2025-04-11 07:08] LABS: Anion Gap 8.6 mmol/L (3-11); BUN 15 mg/dL (7-18); CO2 25.4 mmol/L (21.0-32.0); Calcium 8.6 mg/dL (8.5-10.1); Chloride 105 mmol/L (98-107); Glucose 177 mg/dL (74-106); Potassium 4.2 mmol/L (3.5-5.1); Sodium 139 mmol/L (136-145)
[2025-04-11 07:30] VITALS: BP 118/69; PULSE 80; RESP 16; TEMP 36.6; O2SAT 98
--- NOTE | 2025-04-11 07:36 | PT.INTREAT ---
PT Notes Visit Reasons: Painful R TKR Physical Therapy Inpatient Treatment Note Date: 04/11/2025 Precautions: Fall. Standard. WBAT on right LE. Subjective: Did not sleep well last night due to pain level but was agreeable to PT consult. Denies headache, chest pain, nausea, and dizziness throughout session. Objective: General Observation: ELIZABETH wraps to R LE. Cryocuff to R knee. IV in R UE. TEDS on L leg. Mental Status: Alert and oriented x 4 Pain: 3-4/10 in the R knee Sensation: Numbness to R LE resolved Bed Mobility/Transfers: Minimal cueing provided for use of B hands as needed for support, movement sequence, AD management, and posture to reduce fall risk and minimize pain report Supine to sit independent Sit to stand independent with FWW Stand to sit independent with FWW Bed to toilet supervision with FWW Toilet seat to supervision with FWW Gait: 550 feet with FWW with stand by assist with partial step through gait pattern. Decreased luma. Good quadriceps activation. Minimal verbal cueing for posture, weight distribution, increased hip and knee flexion on R for symmetric gait pattern throughout, and AD management. Mild antalgia noted. Stairs: Up and down 6 x 4-inch steps and 4 x 6-inch steps while holding onto B rails with step-to gait pattern with stand by assist. Minimal verbal cueing for posture, weight distribution, increased hip and knee flexion on R for symmetric gait pattern throughout, and AD management THERA EX: Trained patient with correct performance of exercises below to maximize motor control, joint flexibility, soft tissue extensibility of the [] knee musculature: Access Code: [email or web address] URL: [email or web address] Date: 04/10/2025 Prepared by: Yeimi Babcock Exercises - Supine Quad Set - 1 x daily - 7 x weekly - 1 sets - 10 reps - 5 hold - Supine Heel Slide - 1 x daily - 7 x weekly - 1 sets - 10 reps - 5 hold - Supine Ankle Pumps - 1 x daily - 7 x weekly - 1 sets - 10 reps - 5 hold - Small Range Straight Leg Raise - 1 x daily - 7 x weekly - 1 sets - 10 reps - 5 hold - Seated March - 1 x daily - 7 x weekly - 1 sets - 10 reps - 5 hold Balance: Static Sitting: Normal Dynamic Sitting: Normal Static Standing: Fair Dynamic Standing: Fair Assessment: Covered much more distance without pain and adequate quadriceps activation which allowd for more symmetric gait. Stephanie demonstrates functional mobility decline requiring the use of a front-wheeled walker for all mobility ADL performance to maximize independence and reduce fall risk. She will have support of her significant other at home. Stephanie is a 44-year-old female with loose, painful R TKA S/P R total knee revision on postoperative day 0. She was S/P revision of loose tibial component of R TKA on 05/05/2022 due to aseptic loosening of a R TKA originally done on 02/20/2020. She is also S/P arthroscopic debridement and manipulation on 07/30/2020. Plan of Care/Treatment Plan: Patient will highly benefit from skilled physical therapy services including functional mobility training, bed mobility/transfer training, gait and balance training, therapeutic exercises, therapeutic activity, caregiver/staff/family education and training 1x/day, 7 days/week x 1 week. Plan of care has been reviewed with the LEGAL CONTRACTS SPECIALIST providing the service under Physical Therapy direction. Initiate Physical Therapy intervention for strengthening, bed mobility, transfers, gait, stairs, balance training, use of assistive device. DISCHARGE RECOMMENDATIONS: Home when medically cleared. Outpatient PT services return to premorbid independent level and promote return to vocational activities. Needs front wheeled walker to maximize independence at home. TREATMENT CODE/TIME: 70194 x 29 minutes for 2 units (7:36-8:05).
--- NOTE | 2025-04-11 07:52 | DSE_ITS ---
Date of service: 04/11/25 Time of Service: 07:40 Discharge Plan Disposition Patient Disposition: Home Condition: Improving Discharge Details Reason For Visit: Painful R TKR Admit Date/Time: 04/10/25 07:00 Admit Provider: Karl Aguilera Attending Provider: Karl Aguilera Primary Care Provider: Sandra Greenwood [facility] Course Hospital Course: Patient was admitted to the medical/surgical floor following the procedure. The surgery was tolerated well without any notable medical, surgical, or anesthetic complications. Mobilization began postoperatively. She was voiding spontaneously. Vitals were stable. She did have hyperglycemia following the procedure which responded well to insulin aspart. Physical therapy worked with the patient and was cleared for discharge home. No acute medical issues. Pain was controlled on oral regimen. Home Meds and New Rx's Prescriptions: New celecoxib 200 mg capsule 200 mg PO BID PRN (Reason: pain) Qty: 60 1RF aspirin 81 mg tablet,delayed release (DR/EC) 81 mg PO BID Qty: 60 0RF acetaminophen 500 mg tablet 1,000 mg PO Q8H PRN (Reason: pain) Qty: 90 3RF cefadroxil 500 mg capsule 500 mg PO BID Qty: 14 0RF docusate sodium [Colace] 100 mg capsule 100 mg PO BID PRNQty: 10 0RF gabapentin 300 mg capsule 300 mg PO QHS Qty: 14 0RF oxycodone 5 mg tablet 5 mg PO Q4H PRNQty: 18 0RF Continued citalopram [Celexa] 20 mg tablet 20 mg PO HS rosuvastatin 20 mg tablet 20 mg PO DAILY omeprazole 20 mg capsule,delayed release(DR/EC) 20 mg PO DAILY magnesium oxide 500 mg capsule 500 mg PO DAILY Trulicity 4.5 mg/0.5 mL pen injector 4.5 mg subcut QWEEK Qty: 2 0RF [id number] [B-Complex Plus B-12] 1 tab PO DAILY lisinopril 20 mg tablet 10 mg PO DAILY Patient Comments: TAKE ONE TABLET BY MOUTH EVERY DAY Discontinued aspirin [Children's Aspirin] 81 mg Tablet,Chewable 81 mg PO DAILY Qty: 0 0RF Discharge Instructions Additional Instructions: Total Knee Discharge Instructions Activity: The most important activity is to walk and to work on gentle motion (both flexion and extension). You should work on getting the knee straight and bending to at least 90 degrees every day. You should try to take short walks a few times a day. It is important that when resting you work on keeping the knee straight. Avoid putting a pillow behind the knee as this will encourage flexion. Work on range of motion exercises as provided by Physical Therapy. - Start outpatient physical therapy within 2 weeks. - You should wear the JAKUB hose on both legs for 2 weeks. You may remove these at night. You may also use any compression sock in place of the JAKUB hose. - Utilize [employer] to review exercises, see videos on exercises and obtain basic information pertaining to your surgery and your recovery. Dressing: Remove the Neftali wrap by 2 days after your surgery and put on the JAKUB stocking given to you from the hospital. Keep the surgical dressing (underneath the NEFTALI wrap) in place for at least one week. After the first week it may be removed and replaced with light gauze and tape or nothing. The wound and dressing may get wet after 3 days but avoid soaking the dressing or otherwise it will need to be changed. Many people prefer covering the dressing with cling wrap (saran wrap) to minimize it from getting soaked. If it gets wet, just pat dry. If it starts to peel off then it will need to be changed. Medications: - You should take Tylenol and anti-inflammatory Celebrex as your primary pain control medications. If the Celebrex is too expensive or not covered, please c all the office for another alternative (Advil/Ibuprofen or Naproxen/Aleve) - You have been prescribed a stronger pain medication Oxycodone for breakthrough pain, take as needed as prescribed. - You should continue your stomach acid reduction agent Omeprazole to help reduce stomach acid and reflux. - You have been prescribed Gabapentin to take at night for restlessness and nerve pain. - You will be taking Aspirin 81mg twice a day for DVT prevention unless instructed otherwise. - You have also been prescribed a prophylactic antibiotic, cefadroxil, take for 1 week - If you have constipation you should take Colace or Miralax (both [id number]). It takes most people 3-4 days to have a bowel movement. Resume your Trulicity today. Follow your glucose readings at home and if numbers are running over 200 please contact your primary care team as well as Dr. Aguilera. Follow-up: 2 weeks If you have any acute concerns or questions, please do not hesitate to contact the office at [phone]. You may contact Dr. Aguilera with any questions after hours through the hospital at [phone] or on his cell phone at [phone]. Stand Alone Forms: Portal Information Activity:: Activity as Tolerated Equipment/Supplies:: Walker Diet:: As Tolerated Discharge Orders Discharge Orders: Discharge Order (Routine); Ordered 04/11/25 Ordered By: Karl Aguilera DS: Summary Time Spent with Patient providing and/or coordinating discharge services: Less than 30 minutes Status at Discharge Functional status at discharge: uses cane/walker Overall status at discharge: patient is progressing back to baseline Mental Status: mental status grossly normal Speech and Movement: speech and movement normal Mood: congruent mood Affect: normal affect Exam Narrative Exam Narrative: Sitting up in the bed. No acute distress. Alert and orient x 3. Right lower extremity dressings clean dry and intact. He is able to straight leg raise. Range of motion is present 5 to 95 degrees. Knee stable to varus and valgus stress. Sensation intact to light touch over the deep and superficial peroneal nerve and tibial nerve. Intact ankle dorsiflexion, plantarflexion, great toe extension and flexion. Psych Mental Status: mental status grossly normal Speech and Movement: speech and movement normal Mood: congruent mood Affect: normal affect DS: Data Vitals/I&O Vitals and I&O: Vital Signs Temperature 36.6 C 04/11/25 07:30 Temperature Source Temporal Artery Scan 04/11/25 07:30 Pulse 80 04/11/25 07:30 Pulse Rhythm Regular 04/10/25 17:30 Pulse 83 04/10/25 17:10 Respiratory Rate 16 04/11/25 07:30 Respiratory Effort Normal, Non-Labored 04/10/25 17:30 Respiratory Depth Normal 04/10/25 17:30 Respiratory Pattern Normal 04/10/25 17:30 Blood Pressure 118/69 04/11/25 07:30 Blood Pressure Mean 85 04/11/25 07:30 Blood Pressure Position Supine 04/10/25 11:26 Pulse Oximetry 98 04/11/25 07:30 Respiratory End-tidal CO2 39 04/10/25 17:10 Oxygen Delivery Method Room Air 04/11/25 07:30 Oxygen Flow Rate 0 04/11/25 07:30 Pain Level 0 04/10/25 17:11 Comment 2mg IV Midazolam pre-op administered by AF, REGISTERED CLINICAL DIETITIAN; pt tolerated well. 04/10/25 11:26 Intake & Output 04/10/25 04/10/25 04/11/25 11:59 23:59 11:59 Intake Total 2480 / 2480 460 / 460 Output Total 700 / 700 700 / 700 Balance 1780 / 1780 -240 / -240 Weight 90 kg 90 kg Intake: IV 2480 / 2480 60 / 60 Oral 400 / 400 Output: Urine 400 / 400 700 / 700 Estimated Blood Loss 300 / 300 Other: Urine Color Yellow Light Akila Urine Appearance Clear Clear Urine Odor Normal Comment pt voids to toilet. pt voids to toilet. Emesis Description None Data Completed and Pending Pending Labs at Discharge: 04/11/25 06:13 WBC 15.06 H RBC 3.48 L Hgb 10.1 L Hct 29.8 L MCV 86 MCH 29.0 MCHC 33.9 RDW 12.9 Plt Count 205 MPV 10.9 Sodium 139 Potassium 4.2 Chloride 105 Carbon Dioxide 25.4 Anion Gap 8.6 BUN 15 Creatinine 0.8 Est GFR (CKD-EPI 2020) 88.60 Glucose 177 H Calcium 8.6 PFSH All Active Problems TIA (transient ischemic attack) (Acute) Throbbing headache (Acute) Visual disturbance (Acute) Loosening of prosthesis of right knee joint (Acute) Painful total knee replacement, right (Acute) Pain of right heel (Acute) Right Achilles tendinitis (Acute) Pes anserinus bursitis of right knee (Acute) Left lateral epicondylitis (Acute) Left carpal tunnel syndrome (Acute 08/09/16) Left wrist tendinitis (Acute 03/09/17) Medical History Depression Hyperlipidemia Hypertension Diabetes mellitus Surgical History Arthrofibrosis of total knee arthroplasty RIGHT S/P arthroscopic debridement and manipulation: 07/30/2020 S/P repeate arthroscopic debridement and manipulation: 07/26/2023 History of revision of total replacement of right knee joint (05/05/22) Tibial component Hx of carpal tunnel repair Status post total right knee replacement (02/20/20) De Quervain's tenosynovitis, left (03/09/17) Status post Dequerveins release performed on 05/01/2018 Social History Smoking/Tobacco Use Status: Current every day Tobacco Type: cigarettes Years smoked: 32 Smoking risk assessment performed?: Yes Alcohol Intake: current Alcohol Intake frequency: holidays/special occasions only Alcohol type: other Drug use: Never Substance use type: does not use Housing: apartment Current gender identity: female Do you feel safe at home: Yes Do you feel safe in your relationship?: Yes Time Spent with Patient Time Spent with Patient: <45 minutes Time was spent: preparing to see the patient(eg.review tests), obtaining and/or reviewing separately otained hiistory, ordering medications,tests, procedures, indepentently interpreting results and counseling the patient
[2025-04-11] MEDS: Acetaminophen 500 MG TAB 1000 MG PO (08:01)
[2025-04-11] MEDS: Aspirin E.C. 81 MG TABEC PO (08:01)
[2025-04-11] MEDS: Omeprazole 20 MG CAPCR PO (08:01)
[2025-04-11] MEDS: Magnesium Oxide 400 MG TAB PO (08:01)
[2025-04-11] MEDS: Celecoxib 200 MG CAP PO (08:01)
[2025-04-11] MEDS: Rosuvastatin 20 MG TAB PO (08:01)
--- NOTE | 2025-04-11 09:44 | PDOC.CMDIS ---
Date of service: 04/11/25 Time of Service: 09:44 LACE Index Scoring Tool Questions: Length of Stay (in days): 1 Was the patient admitted via the E.D.?: No Comorbidities: Cerebrovascular Disease E.D. Visits: 1 Answers: Total Score: 3 Risk of Readmission: Low Risk Care Management Discharge Plan Reason for Hospitalization: painful R knee , s/p revision Discharge Plan: Stephanie is discharged home today with no new services. She will f/u with her PCP and with Ortho and continue per her plan of care. 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 She has already completed her short term disability paper work and does not require a work note. Stephanie has a walker and a sliding board to help her get into her 's vehicle from when she had the replacement done. Stephanie stated that she already feels better than prior to the surgery. Patient/Family Education Needs: Review of discharge instructions, activity, limitations, and discuss Ask me 3.
== END 2025-04-11 10:08 | disposition home or self-care (01) | DRG 468 ==
LOC: MS 04-11 07:16 → PDS 04-11 07:16 → MS 04-11 07:16
PROVIDERS: Admitting Provider Student in an Organized Health Care Education/Training Program; PCP Nurse Practitioner Family; Visit Provider Student in an Organized Health Care Education/Training Program
PROC: 0SPC0JZ Removal of Synthetic Substitute from Right Knee Joint, Open Approach (ICD-10-PCS; CPT 27487; principal; 2025-04-10 12:15)
DX: T84.84XA Pain due to internal orthopedic prosthetic devices, implants and grafts, initial encounter (principal); T84.82XA Fibrosis due to internal orthopedic prosthetic devices, implants and grafts, initial encounter; G89.18 Other acute postprocedural pain; Z86.73 Personal history of transient ischemic attack (TIA), and cerebral infarction without residual deficits; I10 Essential (primary) hypertension; E78.5 Hyperlipidemia, unspecified; F32.A Depression, unspecified; Z79.85 Long-term (current) use of injectable non-insulin antidiabetic drugs; F51.04 Psychophysiologic insomnia; F17.210 Nicotine dependence, cigarettes, uncomplicated; E11.65 Type 2 diabetes mellitus with hyperglycemia
CPT/HCPCS: 27487; 20985; 36415; 64447; 80048; 85027; 97162; 97530; 73560; C1776; J0166; J0665; J0666; J0690; J1100; J1815; J1885; J2250; J2371; J2405; J2704; J2795; J3010; J3475

== ENCOUNTER 2025-04-25 11:18 | Outpatient (CLI) | payer MEDICAID, SELFPAY ==
--- NOTE | 2025-04-25 08:00 | DI.RAD_ITS ---
Exam(s) XR KNEE RT 2V AP,LAT EXAM: XR KNEE RT 2V AP,LAT CLINICAL HISTORY: S/P REVISION R TKA. TECHNIQUE: 2D digital imaging was performed. COMPARISON: CR XR KNEE RT 2V AP,LAT from 04/10/2025 FINDINGS: Two views Stable position alignment of the components of the recently placed revision prosthesis. No fracture or loosening evident. No radiographic evidence of osteomyelitis. Soft tissue swelling is noted anteriorly. There is no gas in the soft tissues. IMPRESSION: Stable satisfactory appearance DATA REPOSITORY: RADIATION DOSE DELIVERED:
== END 2025-04-25 11:19 | disposition home or self-care (01) ==
LOC: DIORS 11:18
PROVIDERS: PCP Nurse Practitioner Family; Visit Provider Student in an Organized Health Care Education/Training Program
DX: T84.84XA Pain due to internal orthopedic prosthetic devices, implants and grafts, initial encounter (principal); Z96.651 Presence of right artificial knee joint
CPT/HCPCS: 73560

== ENCOUNTER 2025-05-21 15:49 | Outpatient (REF) | payer MEDICAID, SELFPAY ==
--- NOTE | 2025-05-21 12:30 | PAPFT_PTH ---
PATIENT: Stephanie Lim LOC: [facility] U#:[id number] AGE/SX: 50/F ROOM: RE05/21/[address]: Sandra Greenwood : 1975 BED: DIS: 05/21/2025 SPEC #: [id number] RECD: 05/22/25 13:00 STATUS: NATHAN SALAZAR #: [id number] CHRISTINE: 05/21/25 12:[address]: Sandra Greenwood DEPT: [facility] Cytology RECD BY: Juana Carpio Tissues: 1 - CX/ENDOCX FOR PAP SMEARS Procedures: PAP THIN PREP/UVM Screening HPV DNA PROBE Comments: [id number] (HPV 16 & 18/45)
== END 2025-05-21 15:50 | disposition home or self-care (01) ==
LOC: NCHCN 15:49
PROVIDERS: PCP Nurse Practitioner Family; Visit Provider Nurse Practitioner Family
DX: Z12.4 Encounter for screening for malignant neoplasm of cervix (principal)
CPT/HCPCS: 88142; 87624